=== PATIENT | male | born 1950 | race Caucasian/White ===

== ENCOUNTER 2018-04-20 05:32 | Inpatient (IN) | payer MEDICARE, BC ==
[2018-04-20] MEDS ORDERED: Acetaminophen 500 MG Tab PO ONE (05:45)
[2018-04-20] MEDS ORDERED: Scopolamine 1.5 MG Transdermal Patch TRDERM SCH (05:45)
[2018-04-20] MEDS ORDERED: Dextrose 5%-Lactated Ringers 1,000 ML IV SCH (06:00)
[2018-04-20] MEDS: cefOXitin 2 GM in Sodium Chloride 0.9% 50 ML IV ONE ×2 (07:00→13:19)
[2018-04-20] MEDS ORDERED: Succinylcholine 200 MG/10 ML MDV ONE (07:06)
[2018-04-20] MEDS ORDERED: Propofol 200 MG/20 ML SDV ONE (07:06)
[2018-04-20] MEDS ORDERED: Rocuronium 50 MG/5 ML Vial ONE (07:06)
[2018-04-20] MEDS ORDERED: Neostigmine Methylsulfate 1 MG/ML 5 ML Syringe ONE (07:06)
[2018-04-20] MEDS ORDERED: Glycopyrrolate 0.2 MG/ML 5 ML MDV ONE (07:06)
[2018-04-20] MEDS ORDERED: Dexamethasone 4 MG/ML SDV ONE (07:06)
[2018-04-20] MEDS ORDERED: Ondansetron 4 MG/2 ML SDV ONE (07:06)
[2018-04-20] MEDS ORDERED: fentaNYL 250 MCG/5 ML SDV ONE (07:06)
[2018-04-20] MEDS ORDERED: Naloxone 0.4 MG/ML SDV IVPUSH PRN (07:11)
[2018-04-20] MEDS ORDERED: Ketamine 500 MG/5 ML MDV IV SCH (07:15)
[2018-04-20] MEDS ORDERED: Ropivacaine 37 ML, Dexamethasone 8 MG, EPINEPHrine 0.4 MG, Sodium Chloride 0.9% 40.6 ML NERVRT SCH ×4 (07:15)
[2018-04-20] MEDS: HYDROmorphone/Normal Saline 15 MG/30 ML PCA IV PRN (08:35)
[2018-04-20] MEDS ORDERED: Meropenem 500 MG SDV ONE (08:38)
[2018-04-20] MEDS ORDERED: fentaNYL 100 MCG/2 ML SDV ONE (09:08)
[2018-04-20] MEDS ORDERED: Sugammadex Sodium 200 MG/2 ML VIAL ONE (09:28)
[2018-04-20] MEDS: Dextrose 5%-Lactated Ringers 1,000 ML IV SCH ×2 (13:53→21:39)
[2018-04-20] MEDS: ceFAZolin 2 GM in Premix Bag 1 BAG IV SCH ×2 (13:53→19:47)
[2018-04-20] MEDS: Pantoprazole 40 MG Vial IV SCH (13:53)
[2018-04-20] MEDS: Metoclopramide 10 MG/2 ML SDV IV SCH ×2 (13:53→19:44)
[2018-04-20] MEDS: Tamsulosin 0.4 MG Cap.ER PO SCH (20:04)
[2018-04-20] MEDS: LORazepam 2 MG/ML SDV IV PRN (23:58)
[2018-04-21] MEDS: Pantoprazole 40 MG Vial IV SCH ×3 (00:30→23:44)
[2018-04-21] MEDS: Metoclopramide 10 MG/2 ML SDV IV SCH ×4 (02:34→20:27)
[2018-04-21] MEDS: Dextrose 5%-Lactated Ringers 1,000 ML IV SCH ×3 (04:18→22:24)
[2018-04-21] MEDS: ceFAZolin 2 GM in Premix Bag 1 BAG IV SCH ×3 (04:23→20:27)
[2018-04-21] MEDS: Sertraline 50 MG Tab PO SCH (08:47)
--- NOTE | 2018-04-21 10:32 | PN ---
DATE OF SERVICE: 04/21/2018 SUBJECTIVE: Bobby is postoperative day #1 following a laparoscopic Audelia fundoplication. His pain is controlled. He does state when he drinks, he will get hiccups. Vital signs have been stable. He had couple of episodes of restless legs syndrome during the night, which he said he gets at home, where he gets up and walks around or stretches, and it seems to settle down. He had an episode of anxiety, which was treated with IV Ativan. REVIEW OF SYSTEMS: Remainder of review of systems negative for any pertinent positives and negatives. OBJECTIVE: GENERAL: Bobby Morris is a pleasant 67-year-old male. VITAL SIGNS: TPR is 98.4, 58, 16, and blood pressure 93/60. HEENT: Negative. NECK: Supple. HEART: Regular rate and rhythm. LUNGS: Clear. ABDOMEN: Dressings dry and intact. MEGAN drain put out 95 mL of a pink serosanguineous drainage. Tovar catheter output was 2600. Oral intake 150 of sips of clear liquids. Dressing otherwise is dry and intact. Abdominal binder is on. EXTREMITIES: Without peripheral edema. ASSESSMENT: Laparoscopic Audelia fundoplication. PLAN: 1. Discontinue Tovar catheter. 2. Check ferritin. 3. Decrease D5LR to 100 mL per hour. 4. Continue sips of clear liquid diet. Discontinue straws. 5. Good pulmonary toilet. 6. Dietary consult. 7. We will evaluate p.r.n. or in a.m. Nataly Nance PA-C /[id number]
[2018-04-21] MEDS: Tamsulosin 0.4 MG Cap.ER PO SCH (20:29)
[2018-04-21] MEDS: rOPINIRole 0.5 MG Tab PO SCH (20:29)
[2018-04-21] MEDS: Ondansetron 4 MG/2 ML SDV IV PRN (20:41)
[2018-04-21] MEDS: LORazepam 2 MG/ML SDV IV PRN (22:20)
[2018-04-22] MEDS: Metoclopramide 10 MG/2 ML SDV IV SCH ×4 (01:41→20:39)
[2018-04-22] MEDS: ceFAZolin 2 GM in Premix Bag 1 BAG IV SCH ×3 (03:59→20:40)
[2018-04-22] MEDS: Sertraline 50 MG Tab PO SCH (09:13)
--- NOTE | 2018-04-22 11:58 | PN ---
DATE OF SERVICE: 04/22/2018 SUBJECTIVE: Bobby is a 67-year-old male who is postoperative day 2. Vital signs have been stable. A temperature max of 99.6. He has been up ambulating. Pain has been controlled. He has been quite sleepy. He has been on sips of clear liquids. Oral intake is 420. Urine output is 1730. MEGAN drain put out 30 mL of a light pink serosanguineous drainage. He reported no restless legs and was started on Requip yesterday. REVIEW OF SYSTEMS: Remainder of review of systems is negative for any pertinent positives and negatives. OBJECTIVE: GENERAL: Bobby Morris is a 67-year-old male. He is quite sleepy. VITAL SIGNS: TPR is 99, 76, 16, and blood pressure 106/72. HEENT: Negative. NECK: Supple. HEART: Regular rate and rhythm. LUNGS: Clear. ABDOMEN: Dressings are dry and intact. Abdominal binder is on. EXTREMITIES: Without peripheral edema. ASSESSMENT: Diagnostic laparoscopy with repair of paraesophageal diaphragmatic hernia with mesh and Audelia fundoplication. Remnant T-formation for esophagus and excision of mediastinal lipoma and repair of esophageal perforation for paraesophageal hiatal hernia, gastroesophageal reflux disease refractory to medical management and esophageal perforation just proximal to the esophageal gastric junction. Date of surgery 04/20/2018. Surgeon, Richard Ludwig MD. PLAN: 1. Ensure clear oral protein supplements t.i.d. 2. Clear liquid diet. 3. Dressing off, may shower. 4. Good pulmonary toilet. 5. We will evaluate p.r.n. or in the a.m. Nataly Nance PA-C /[id number]
[2018-04-22] MEDS: Pantoprazole 40 MG Vial IV SCH ×2 (13:51→23:36)
[2018-04-22] MEDS: HYDROmorphone/Normal Saline 15 MG/30 ML PCA IV PRN (16:53)
--- NOTE | 2018-04-22 16:53 | PCM.PN ---
- General Info Date of Service: 04/22/18 Functional Status: Reports: Pain Controlled, Tolerating Diet - Review of Systems General: Reports: Fever Musculoskeletal: Reports: Joint Pain Systems Review Comment:: I was asked to see Mr. Morris today regarding left knee pain and swelling. He reports that he fell a couple of days ago while climbing stairs. He struck his left denny and left knee area. He did have some pain but was able to ambulate at that time. He has had progressive sharp and now moderate to moderately severe pain in the left knee. Pain is worse with ambulation and extension at the knee. Pain medications to help some. He has noticed swelling of both the medial and lateral areas of the knee today. He has a history of arthroscopic surgeries on that knee. No history of inflammatory crystal disease of the joints. - Patient Data Vitals - Most Recent: Last Vital Signs Temp 37.9 C 04/22/18 15:00 Pulse 78 04/22/18 15:00 Resp 15 04/22/18 15:00 BP 104/75 04/22/18 15:00 Pulse Ox 96 04/22/18 15:00 Weight - Most Recent: 72.847 kg I&O - Last 24 Hours: Intake & Output 04/22/18 04/22/18 04/22/18 06:59 14:59 22:59 Intake Total 1189 360 Output Total 830 650 Balance 359 -290 Med Orders - Current: Current Medications Acetaminophen (Tylenol Jr. Meltaways) 640 mg PO Q4H PRN PRN Reason: Temp Bupropion HCl (Wellbutrin) 150 mg PO BID [facility] Last Admin: 04/22/18 09:13 Dose: 150 mg Hydromorphone HCl (Dilaudid [place] 15 Mg In Ns 30 Ml) 0 mg IV ASDIRECTED PRN; Protocol PRN Reason: Pain Last Admin: 04/20/18 08:35 Dose: 0.3 mg Dextrose/Lactated Ringer's (Dextrose 5%-Lactated Ringers) 1,000 mls @ 100 mls/ hr IV ASDIRECTED [facility] Last Admin: 04/21/18 22:24 Dose: 150 mls/hr Cefazolin Sodium/Dextrose 2 gm (/ Premix) 50 mls @ 100 mls/hr IV Q8H [facility] Last Admin: 04/22/18 13:51 Dose: 100 mls/hr [place] Carbonate ([place] Carbonate) 300 mg PO TID [facility] Last Admin: 04/22/18 13:51 Dose: 300 mg Lorazepam (Ativan) 0.5 - 1 mg IV Q6H PRN PRN Reason: ANEXITY Last Admin: 04/21/18 22:20 Dose: 1 mg Metoclopramide HCl (Reglan) 10 mg IV Q6H [facility] Last Admin: 04/22/18 13:52 Dose: 10 mg Naloxone HCl (Narcan) 0.1 mg IVPUSH Q2M PRN PRN Reason: Respiratory Distress Ondansetron HCl (Zofran) 4 mg IV Q4H PRN PRN Reason: N/V Last Admin: 04/21/18 20:41 Dose: 4 mg Pantoprazole Sodium (Protonix Iv) 40 mg IV Q12H [facility] Last Admin: 04/22/18 13:51 Dose: 40 mg Ropinirole HCl (Requip) 0.5 mg PO BEDTIME [facility] Last Admin: 04/21/18 20:29 Dose: 0.5 mg Sertraline HCl (Zoloft) 50 mg PO DAILY [facility] Last Admin: 04/22/18 09:13 Dose: 50 mg Tamsulosin HCl (Flomax) 0.4 mg PO BEDTIME [facility] Last Admin: 04/21/18 20:29 Dose: 0.4 mg Discontinued Medications Acetaminophen (Tylenol Extra Strength) 1,000 mg PO ONETIME ONE Stop: 04/20/18 05:46 Last Admin: 04/20/18 05:53 Dose: 1,000 mg Ropivacaine 37 ml/Dexamethasone 8 mg/Epinephrine HCl 0.4 mg/ Sodium Chloride 40.6 ml 0 ml NERVRT ASDIRECTED [facility] Last Admin: 04/20/18 08:17 Dose: 100 syringe Dexamethasone (Dexamethasone) Confirm Administered Dose 4 mg .ROUTE .STK-MED ONE Stop: 04/20/18 07:07 Fentanyl (Sublimaze) Confirm Administered Dose 250 mcg .ROUTE .STK-MED ONE Stop: 04/20/18 07:07 Fentanyl (Sublimaze) Confirm Administered Dose 100 mcg .ROUTE .STK-MED ONE Stop: 04/20/18 09:09 Glycopyrrolate (Robinul) Confirm Administered Dose 1 mg .ROUTE .STK-MED ONE Stop: 09/10/18 07:07 Cefoxitin Sodium 2 gm/ Sodium (Chloride) 50 mls @ 100 mls/hr IV ONETIME ONE Stop: 04/20/18 07:44 Last Admin: 04/20/18 13:19 Dose: Not Given Dextrose/Lactated Ringer's (Dextrose 5%-Lactated Ringers) 1,000 mls @ 100 mls/ hr IV ASDIRECTED [facility] Last Admin: 04/20/18 06:39 Dose: 100 mls/hr Ketamine HCl (Ketalar) 34 mg IV ASDIRECTED [facility] Meropenem (Merrem) Confirm Administered Dose 500 mg .ROUTE .STK-MED ONE Stop: 04/20/18 08:39 Last Admin: 04/20/18 08:51 Dose: 500 mg Neostigmine Methylsulfate (Neostigmine) Confirm Administered Dose 5 mg .ROUTE .STK-MED ONE Stop: 04/20/18 07:07 Ondansetron HCl (Zofran) Confirm Administered Dose 4 mg .ROUTE .STK-MED ONE Stop: 04/20/18 07:07 Propofol (Diprivan 20 Ml) Confirm Administered Dose 200 mg .ROUTE .STK-MED ONE Stop: 04/20/18 07:07 Rocuronium [place] (Zemuron) Confirm Administered Dose 50 mg .ROUTE .STK-MED ONE Stop: 04/20/18 07:07 Scopolamine (Transderm-Scop) 1.5 mg TRDERM Q72H [facility] Stop: 04/22/18 05:46 Last Admin: 04/20/18 05:56 Dose: 1.5 mg Succinylcholine Chloride (Quelicin) Confirm Administered Dose 200 mg .ROUTE .STK -MED ONE Stop: 04/20/18 07:07 Sugammadex Sodium (Bridion) Confirm Administered Dose 200 mg .ROUTE .STK-MED ONE Stop: 04/20/18 09:29 - Exam Quality Assessment: No: Supplemental Oxygen General: Alert, Oriented, Cooperative, No Acute Distress Lungs: Normal Respiratory Effort GI/Abdominal Exam: No Distention Extremities: No Pedal Edema, Joint Swelling (left knee, superior lateral as well as medial), Increased Warmth (in the areas of swelling as well as along both joint lines) Skin: Warm, Dry Psy/Mental Status: Alert, Normal Affect - Problem List Review Problem List Initiated/Reviewed/Updated: Yes - My Orders Last 24 Hours: My Active Orders 04/22/18 16:47 Knee 3V Lt [CR] Routine 04/22/18 16:48 Cooling Warming Measures [RC] ASDIRECTED Ice Therapy [OM.PC] Routine - Plan Plan:: ASSESSMENT AND PLAN - Left knee pain and swelling - secondary to trauma to the knee with fall on Friday night. X-ray shows significant arthritis changes as well as some effusions but no evidence for fracture or dislocation though the patella does seem to be riding slightly higher than what we expected on a lateral view. a CT scan of the knee was performed and did not show any evidence for fracture or dislocation. Tricompartmental effusions were noted. There was mention of the apparent area of impaction on the left side of the joint but again no evidence for fracture. most likely the pain as a result of trauma. I highly doubt this is crystal disease such as gout or pseudogout and certainly doesn't look like infection. -Ice every 4 hours -Pain control -Increase activity as tolerated -Physical therapy -Consider advanced imaging such as MRI if pain worsens or does not get better Clemente Benson M.D.
[2018-04-22] MEDS: Acetaminophen 160 MG Tab,Disintegrating PO PRN (17:17)
[2018-04-22] MEDS: Dextrose 5%-Lactated Ringers 1,000 ML IV SCH (19:42)
[2018-04-22] MEDS: rOPINIRole 0.5 MG Tab PO SCH (20:55)
[2018-04-22] MEDS: Tamsulosin 0.4 MG Cap.ER PO SCH (20:55)
[2018-04-23] MEDS: Metoclopramide 10 MG/2 ML SDV IV SCH ×4 (02:59→19:27)
[2018-04-23] MEDS: Acetaminophen 160 MG Tab,Disintegrating PO PRN ×4 (03:01→23:33)
[2018-04-23] MEDS: ceFAZolin 2 GM in Premix Bag 1 BAG IV SCH ×3 (03:46→19:32)
[2018-04-23] MEDS: Dextrose 5%-Lactated Ringers 1,000 ML IV SCH ×2 (07:08→19:28)
--- NOTE | 2018-04-23 08:41 | CR ---
Knee 3V Lt HISTORY: left knee pain and swelling FINDINGS: There is joint space narrowing medial and lateral compartments of the left knee. Medial and lateral osteophytes are present. There are degenerative changes undersurface of the patella with sma ll superior and inferior patellar osteophytes. No acute fracture or dislocation is identified. There may be a small joint effusion with fluid in the suprapatellar bursa. IMPRESSION: Severe degenerative changes left knee. No acute fracture or dislocation is identified.
[2018-04-23] MEDS: HYDROmorphone 2 MG Tab PO PRN ×2 (08:46→13:13)
[2018-04-23] MEDS: Sertraline 50 MG Tab PO SCH (08:48)
--- NOTE | 2018-04-23 10:06 | PCM.PN ---
- General Info Date of Service: 04/23/18 Functional Status: Reports: Tolerating Diet. Denies: Pain Controlled - Review of Systems General: Reports: Fever Musculoskeletal: Reports: Joint Pain (left knee) Systems Review Comment:: No acute issues overnight. Still having a fair amount of pain in his left knee which continues to get worse if he tries to put any weight on it. Extremes of flexion or extension also increase the pain significantly. He has been using ice regularly. He continues to have some low-grade fevers. No significant abdominal pain at this time. Still feels weak and somewhat lethargic. - Patient Data Vitals - Most Recent: Last Vital Signs Temp 37.4 C 04/23/18 07:14 Pulse 78 04/23/18 07:14 Resp 16 04/23/18 07:14 BP 104/71 04/23/18 07:14 Pulse Ox 94 L 04/23/18 07:24 Weight - Most Recent: 72.847 kg I&O - Last 24 Hours: Intake & Output 04/22/18 04/23/18 04/23/18 22:59 06:59 14:59 Intake Total 1420 1428 Output Total 885 1810 Balance 535 -382 Med Orders - Current: Current Medications Acetaminophen (Tylenol Jr. Meltaways) 640 mg PO Q4H PRN PRN Reason: Temp Last Admin: 04/23/18 07:51 Dose: 640 mg Bupropion HCl (Wellbutrin) 150 mg PO BID [facility] Last Admin: 04/23/18 08:48 Dose: 150 mg Hydromorphone HCl (Dilaudid) 2 - 4 mg PO Q4H PRN PRN Reason: Pain Last Admin: 04/23/18 08:46 Dose: 4 mg Cefazolin Sodium/Dextrose 2 gm (/ Premix) 50 mls @ 100 mls/hr IV Q8H [facility] Last Admin: 04/23/18 03:46 Dose: 100 mls/hr Dextrose/Lactated Ringer's (Dextrose 5%-Lactated Ringers) 1,000 mls @ 80 mls/ hr IV ASDIRECTED [facility] [place] Carbonate ([place] Carbonate) 300 mg PO TID [facility] Last Admin: 04/23/18 08:47 Dose: 300 mg Lorazepam (Ativan) 0.5 - 1 mg IV Q6H PRN PRN Reason: ANEXITY Last Admin: 04/21/18 22:20 Dose: 1 mg Metoclopramide HCl (Reglan) 10 mg IV Q6H [facility] Last Admin: 04/23/18 08:47 Dose: 10 mg Ondansetron HCl (Zofran) 4 mg IV Q4H PRN PRN Reason: N/V Last Admin: 04/21/18 20:41 Dose: 4 mg Pantoprazole Sodium (Protonix Iv) 40 mg IV Q12H [facility] Last Admin: 04/22/18 23:36 Dose: 40 mg Ropinirole HCl (Requip) 0.5 mg PO BEDTIME [facility] Last Admin: 04/22/18 20:55 Dose: 0.5 mg Sertraline HCl (Zoloft) 50 mg PO DAILY [facility] Last Admin: 04/23/18 08:48 Dose: 50 mg Tamsulosin HCl (Flomax) 0.4 mg PO BEDTIME [facility] Last Admin: 04/22/18 20:55 Dose: 0.4 mg Discontinued Medications Acetaminophen (Tylenol Extra Strength) 1,000 mg PO ONETIME ONE Stop: 04/20/18 05:46 Last Admin: 04/20/18 05:53 Dose: 1,000 mg Ropivacaine 37 ml/Dexamethasone 8 mg/Epinephrine HCl 0.4 mg/ Sodium Chloride 40.6 ml 0 ml NERVRT ASDIRECTED [facility] Last Admin: 04/20/18 08:17 Dose: 100 syringe Dexamethasone (Dexamethasone) Confirm Administered Dose 4 mg .ROUTE .STK-MED ONE Stop: 04/20/18 07:07 Fentanyl (Sublimaze) Confirm Administered Dose 250 mcg .ROUTE .STK-MED ONE Stop: 04/20/18 07:07 Fentanyl (Sublimaze) Confirm Administered Dose 100 mcg .ROUTE .STK-MED ONE Stop: 04/20/18 09:09 Glycopyrrolate (Robinul) Confirm Administered Dose 1 mg .ROUTE .STK-MED ONE Stop: 04/20/18 07:07 Hydromorphone HCl (Dilaudid [place] 15 Mg In Ns 30 Ml) 0 mg IV ASDIRECTED PRN; Protocol PRN Reason: Pain Last Admin: 04/22/18 16:53 Dose: 15 mg Cefoxitin Sodium 2 gm/ Sodium (Chloride) 50 mls @ 100 mls/hr IV ONETIME ONE Stop: 04/20/18 07:44 Last Admin: 04/20/18 13:19 Dose: Not Given Dextrose/Lactated Ringer's (Dextrose 5%-Lactated Ringers) 1,000 mls @ 100 mls/ hr IV ASDIRECTED [facility] Last Admin: 04/20/18 06:39 Dose: 100 mls/hr Dextrose/Lactated Ringer's (Dextrose 5%-Lactated Ringers) 1,000 mls @ 100 mls/ hr IV ASDIRECTED [facility] Last Admin: 04/23/18 07:08 Dose: 150 mls/hr Ketamine HCl (Ketalar) 34 mg IV ASDIRECTED [facility] Meropenem (Merrem) Confirm Administered Dose 500 mg .ROUTE .STK-MED ONE Stop: 04/20/18 08:39 Last Admin: 04/20/18 08:51 Dose: 500 mg Naloxone HCl (Narcan) 0.1 mg IVPUSH Q2M PRN PRN Reason: Respiratory Distress Neostigmine Methylsulfate (Neostigmine) Confirm Administered Dose 5 mg .ROUTE .STK-MED ONE Stop: 04/20/18 07:07 Ondansetron HCl (Zofran) Confirm Administered Dose 4 mg .ROUTE .STK-MED ONE Stop: 04/20/18 07:07 Propofol (Diprivan 20 Ml) Confirm Administered Dose 200 mg .ROUTE .STK-MED ONE Stop: 04/20/18 07:07 Rocuronium [place] (Zemuron) Confirm Administered Dose 50 mg .ROUTE .STK-MED ONE Stop: 04/20/18 07:07 Scopolamine (Transderm-Scop) 1.5 mg TRDERM Q72H [facility] Stop: 04/22/18 05:46 Last Admin: 04/20/18 05:56 Dose: 1.5 mg Succinylcholine Chlor[place] (Quelicin) Confirm Administered Dose 200 mg .ROUTE .STK -MED ONE Stop: 04/20/18 07:07 Sugammadex Sodium (Bridion) Confirm Administered Dose 200 mg .ROUTE .STK-MED ONE Stop: 04/20/18 09:29 - Exam Quality Assessment: No: Supplemental Oxygen General: Alert, Oriented, Cooperative, No Acute Distress Lungs: Normal Respiratory Effort GI/Abdominal Exam: Soft, No Distention Extremities: No Pedal Edema, Joint Swelling (left knee), Increased Warmth (left knee) Skin: Warm, Dry Psy/Mental Status: Alert, Normal Affect - Problem List Review Problem List Initiated/Reviewed/Updated: Yes - My Orders Last 24 Hours: My Active Orders 04/22/18 16:48 Cooling Warming Measures [RC] ASDIRECTED Ice Therapy [OM.PC] Routine 04/22/18 17:16 Knee wo Cont Lt [CT] Routine 04/23/18 10:02 Notify Provider Consults [RC] ASDIRECTED Consult to Physician [CONS] Routine - Plan Plan:: ASSESSMENT AND PLAN - Left knee pain and swelling - secondary to trauma to the knee with fall on Friday night. Neither x-ray nor CT show definite evidence for fracture. Suspect trauma complicating chronic osteoarthritis. Orthopedics has been consulted for additional assistance and Gerry Hutchison will be seeing the patient today and is planning a arthrocentesis this afternoon. -Orthopedics consultation -Culture, cell count and crystal analysis from arthrocentesis fluid -Ice every 4 hours -Pain control -Increase activity as tolerated -Physical therapy -Consider advanced imaging such as MRI if pain worsens or does not get better Clemente Benson M.D.
--- NOTE | 2018-04-23 10:40 | PN ---
DATE OF SERVICE: 04/23/2018 SUBJECTIVE: The patient reports his pain is controlled. Oral intake was 720 and urine output 3300. He is not passing any flatus. He does have an increased amount of pain and swelling with some fluid in his left knee. REVIEW OF SYSTEMS: Remainder of review of systems is negative for any pertinent positives and negatives. OBJECTIVE: GENERAL: The patient is a pleasant 67-year-old male. VITAL SIGNS: TPR is 99.3, 78, 16, blood pressure 104/71. HEENT: Negative. NECK: Supple. HEART: Regular rate and rhythm. LUNGS: Clear. ABDOMEN: Incisions look good. Sutures in place. MEGAN drain put out 45 mL of a light pink serosanguineous drainage. Abdominal binder has been on. EXTREMITIES: Revealed left knee swelling, right is negative. There is no calf or pedal edema. ASSESSMENT: Diagnostic laparoscopy with repair of paraesophageal diaphragmatic hernia with mesh, and Audelia fundoplication, removal of T fasteners from esophagus and excision of mediastinal lipoma and repair of esophageal perforation. Date of surgery 04/20/2018. Surgeon, Richard Ludwig MD. PLAN: 1. Discontinue Dilaudid [employer] and continuous pulse ox. 2. Full liquid diet food to nothing thicker than water. 3. Protein supplements thinned with milk, nothing thicker than water three times a day. Decrease D5 LR to 80 mL/h, Dilaudid 2 mg 1 to 2 every 4 hours p.r.n. pain. 4. Consult communication order written to Clemente Benson MD in regard to possibility of tapping that left knee. If any questions, to contact Richard Ludwig MD. Good pulmonary toilet, encouraged and stressed importance of using incentive spirometer because he is not able to walk because of the left knee. 5. We will evaluate p.r.n. or in a.m. Nataly Nance PA-C /[id number]
[2018-04-23] MEDS: Pantoprazole 40 MG Vial IV SCH ×2 (12:20→23:04)
[2018-04-23] MEDS ORDERED: Vancomycin 1.5 GM in Sodium Chloride 0.9% 500 ML IV ONE (19:00)
[2018-04-23] MEDS ORDERED: Vancomycin 1,000 MG SDV ONE (19:27)
[2018-04-23] MEDS: rOPINIRole 0.5 MG Tab PO SCH (20:20)
[2018-04-23] MEDS: Tamsulosin 0.4 MG Cap.ER PO SCH (20:20)
[2018-04-24] MEDS: Metoclopramide 10 MG/2 ML SDV IV SCH ×4 (01:06→19:28)
[2018-04-24] MEDS: LORazepam 2 MG/ML SDV IV PRN ×2 (01:27→21:31)
[2018-04-24] MEDS: ceFAZolin 2 GM in Premix Bag 1 BAG IV SCH ×4 (03:38→21:07)
[2018-04-24] MEDS: Acetaminophen 160 MG Tab,Disintegrating PO PRN ×2 (03:47→10:10)
[2018-04-24] MEDS ORDERED: Iopamidol 612 MG/ML 100 ML Bottle IV ONE (07:00)
[2018-04-24] MEDS ORDERED: Iohexol 647 MG/ML 50 ML SDV PO ONE (07:00)
[2018-04-24] MEDS ORDERED: Sodium Chloride 0.9% 100 ML IV SCH (07:00)
[2018-04-24] MEDS: Polyethylene Glycol 3350 Powder 17 GM Packet PO SCH ×2 (08:18→21:07)
[2018-04-24] MEDS: Sertraline 50 MG Tab PO SCH (08:18)
--- NOTE | 2018-04-24 08:41 | CT ---
Chest Abdomen Pelvis w Cont HISTORY: Pt complains of hard time swallowing Axial spiral enhanced CT scan of the chest, abdomen, and pelvis was obtained using IV contrast and a small amount of oral contrast. Auto dosage and iterative reconstruction techniques were employed. FINDINGS: Heart size is within normal limits. No hilar or mediastinal mass or adenopathy seen. I see no mediastinal inflammatory changes or fluid. A small amount of coronary artery calcification is note d. There is mild atherosclerotic calcification in the aortic arch. Small bilateral pleural effusions are present. There is probable dependent atelectasis posteriorly at the lung bases, most prominent le ft lower lobe. Remainder of the chest is clear. The patient is status post recent Audelia fundoplication. Surgical clips are noted near the GE junctio n. Surgical drain is noted left upper quadrant. There is a very small amount of free air just posteri or to the proximal stomach. This is likely postoperative. No contrast extravasation or abscess format ion is seen. Perforation is felt to be less likely. Recommend clinical correlation and follow-up. No focal amount of the liver, spleen, pancreas, or adrenal glands is identified. Gallbladder is surgi kaylee absent. There is no biliary duct dilatation. There is cortical scarring mid to lower right kidn ey laterally. No renal mass or hydronephrosis is seen. There is no ureteral dilatation. I see no obvi ous renal stone disease. Abdominal aorta is not dilated. No pelvic mass or abnormal fluid collections are seen. There is no pelvic, retroperitoneal, or mesent galilea adenopathy. No free fluid or other abnormal intraabdominal or pelvic fluid collections are seen. Small bowel loops are nondistended. No significant colon abnormality can be seen. Bony structures ar e unremarkable other than mild degenerative changes lower lumbar spine. IMPRESSION: 1. Status post Audelia fundoplication. Surgical drain is noted. Small bubbles of free air posterior to the proximal stomach are favored to be postoperative. No contrast extravasation or abscess formation is identified. Perforation is felt to be less likely. Recommend clinical correlation and follow-up. 2. Probable dependent atelectasis posteriorly at the lung bases bilaterally. I cannot exclude early i nflammatory infiltrate posterior left lower lobe. There are small bilateral pleural effusions.
--- NOTE | 2018-04-24 08:48 | CR ---
Chest 2V HISTORY: post op temp COMPARISON: 06/23/2009 FINDINGS: There is probable mild atelectasis at the lung bases bilaterally. Upper chest is clear. Car diomediastinal silhouette is within normal limits. There is no pneumothorax. Blunting of the costophr enic angles suggests a small amount of pleural fluid bilaterally. Surgical drain is noted left upper quadrant of the abdomen. IMPRESSION: Probable mild atelectasis at the lung bases bilaterally. Small bilateral pleural effusion s. I cannot entirely exclude early inflammatory infiltrate left lung base. No other acute chest abnor mality is identified. Postoperative changes are noted about the GE junction with surgical drain left upper quadrant of the abdomen. Gallbladder is surgically absent.
--- NOTE | 2018-04-24 10:26 | PN ---
DATE OF SERVICE: 04/24/2018 SUBJECTIVE: Bobby had a temp max yesterday of 101.2. Blood cultures and chest x-ray were obtained. He had Orthopedic consult and had his left knee drained. Lab tests for that culture and sensitivity are pending. Had one hard bowel movement. Somewhat confused, per nursing report, during the night. Pain has been managed. REVIEW OF SYSTEMS: Remainder of review of systems negative for any pertinent positives and negatives. OBJECTIVE: GENERAL: Bobby Morris is a 67-year-old male. VITAL SIGNS: TPR is 99, 77, 14, and blood pressure 116/77. HEENT: Negative. NECK: Supple. HEART: Regular rate and rhythm. LUNGS: Clear, but decreased breath sounds in the bases. ABDOMEN: Dressings dry and intact. Abdominal binder is on. MEGAN drain put out 35 mL of a light pink serosanguineous drainage. Oral intake was 1100. Urine output was 2600 and three bowel movements are recorded. EXTREMITIES: Left knee remains swollen and warm to touch. No other peripheral edema. ASSESSMENT: 1. Diagnostic laparoscopy with repair of paraesophageal diaphragmatic hernia with mesh and Audelia fundoplication, removal of T-fasteners from the esophagus and excision of mediastinal lipoma, and repair of esophageal perforation. Date of surgery 04/20/2018. Surgeon, Richard Ludwig MD. 2. Left knee swollen, status post removal of fluid per Ortho. 3. Temp max of 101.6. PLAN: 1. Check CT of chest, abdomen and pelvis with IV contrast and 50 mL of water-soluble contrast right before laying on table. Call Richard Ludwig MD, with results. 2. MiraLAX 17 grams b.i.d. 3. Acapella, use 10 times every hour while awake. 4. Check CBC, CMP, mag, and phos. 5. May have ice to left knee and neck p.r.n. 6. Continuous pulse ox. 7. Respiratory Therapy to see the patient, to work on pulmonary function three times a day. 8. We will evaluate p.r.n. or in a.m. Nataly Nance PA-C /[id number]
--- NOTE | 2018-04-24 11:58 | PCM.PN ---
- General Info Date of Service: 04/24/18 Functional Status: Reports: Pain Controlled, Tolerating Diet, Ambulating - Review of Systems General: Reports: Fever, Weakness Musculoskeletal: Reports: Joint Pain (left knee) Neurological: Reports: Confusion Systems Review Comment:: no acute events overnight. Patient did have fever yesterday evening. Chest x- ray did not suggest pneumonia. Urinalysis was clear. Blood cultures were obtained. He did have about 60 mL of yellowish cloudy fluid aspirated from his knee yesterday by Gerry Hutchison with orthopedics. He feels a little better today and he has an increase in his range of motion. Gram stain analysis of the fluid showed significant leukocytosis and some red blood cells but no organisms. Cultures are negative so far. His is concerned about his lethargy and intermittent confusion though they seem to be slowly getting better. Tolerating his full liquid diet. - Patient Data Vitals - Most Recent: Last Vital Signs Temp 37.6 C 04/24/18 10:45 Pulse 88 04/24/18 10:45 Resp 15 04/24/18 10:45 BP 104/67 04/24/18 10:45 Pulse Ox 97 04/24/18 11:32 Weight - Most Recent: 72.847 kg I&O - Last 24 Hours: Intake & Output 04/23/18 04/24/18 04/24/18 22:59 06:59 14:59 Intake Total 550 2790 Output Total 525 1210 1200 Balance 25 1580 -1200 Lab Results Last 24 Hours: Laboratory Results - last 24 hr 04/23/18 04/23/18 04/23/18 Range/Units 16:48 17:25 17:25 WBC 14.9 H (4.5-11.0) K/uL RBC 3.48 L (4.30-5.90) M/uL Hgb 11.7 L (12.0-15.0) g/dL Hct 35.3 L (40.0-54.0) % MCV 101 H (80-98) fL MCH 34 H (27-31) pg MCHC 33 (32-36) % Plt Count 384 (150-400) K/uL Add Manual Diff Yes Neutrophils % (Manual) 81 H (36-66) % Band Neutrophils % 1 L (5-11) % Lymphocytes % (Manual) 5 L (24-44) % Monocytes % (Manual) 6 (2-6) % Eosinophils % (Manual) 5 H (2-4) % Metamyelocytes % 2 % Sodium 138 L (140-148) mmol/L Potassium 3.4 L (3.6-5.2) mmol/L Chloride 99 L (100-108) mmol/L Carbon Dioxide 32 (21-32) mmol/L Anion Gap 10.4 (5.0-14.0) mmol/L BUN 9 (7-18) mg/dL Creatinine 1.1 (0.8-1.3) mg/dL Est Cr Clr Drug Dosing 63.05 mL/min Estimated GFR (MDRD) > 60 (>60) Glucose 121 H (74-106) mg/dL Calcium 9.6 (8.5-10.1) mg/dL Urine Color Urine Appearance Urine pH (4.5-8.0) Ur Specific [place] (1.008-1.030) Urine Protein (NEGATIVE) mg/dL Urine Glucose (UA) (NEGATIVE) mg/dL Urine Ketones (NEGATIVE) mg/dL Urine Occult Blood (NEGATIVE) Urine Nitrite (NEGAITVE) Urine Bilirubin (NEGATIVE) Urine Urobilinogen (NORMAL) mg/dL Ur Leukocyte Esterase (NEGATIVE) Urine RBC (0-5) Urine WBC (0-5) Ur Epithelial Cells Amorphous Sediment Urine Bacteria Urine Mucus Fluid Type Synovial fluid Fluid WBC 16818 /ul Fluid RBC 1800 /ul Fluid Diff Comment Fluid Mononuclear Cell 30 % Fl Polymorphonucl Cell 70 % //18 Range/Units 17:38 WBC (4.5-11.0) K/uL RBC (4.30-5.90) M/uL Hgb (12.0-15.0) g/dL Hct (40.0-54.0) % MCV (80-98) fL MCH (27-31) pg MCHC (32-36) % Plt Count (150-400) K/uL Add Manual Diff Neutrophils % (Manual) (36-66) % Band Neutrophils % (5-11) % Lymphocytes % (Manual) (24-44) % Monocytes % (Manual) (2-6) % Eosinophils % (Manual) (2-4) % Metamyelocytes % % Sodium (140-148) mmol/L Potassium (3.6-5.2) mmol/L Chloride (100-108) mmol/L Carbon Dioxide (21-32) mmol/L Anion Gap (5.0-14.0) mmol/L BUN (7-18) mg/dL Creatinine (0.8-1.3) mg/dL Est Cr Clr Drug Dosing mL/min Estimated GFR (MDRD) (>60) Glucose (74-106) mg/dL Calcium (8.5-10.1) mg/dL Urine Color Yellow Urine Appearance Clear Urine pH 9.0 H (4.5-8.0) Ur Specific [place] 1.015 (1.008-1.030) Urine Protein Negative (NEGATIVE) mg/dL Urine Glucose (UA) Normal (NEGATIVE) mg/dL Urine Ketones Negative (NEGATIVE) mg/dL Urine Occult Blood Negative (NEGATIVE) Urine Nitrite Negative (NEGAITVE) Urine Bilirubin Negative (NEGATIVE) Urine Urobilinogen Normal (NORMAL) mg/dL Ur Leukocyte Esterase Negative (NEGATIVE) Urine RBC 0-5 (0-5) Urine WBC 0-5 (0-5) Ur Epithelial Cells Rare Amorphous Sediment Few Urine Bacteria Rare Urine Mucus Few Fluid Type Fluid WBC /ul Fluid RBC /ul Fluid Diff Comment Fluid Mononuclear Cell % Fl Polymorphonucl Cell % Ad Results Last 24 Hours: Microbiology 04/23/18 16:48 Gram Stain - Final Knee Fluid - Knee, Left Med Orders - Current: Current Medications Acetaminophen (Tylenol Jr. Meltaways) 640 mg PO QID [facility] Bupropion HCl (Wellbutrin) 150 mg PO BID [facility] Last Admin: 04/24/18 08:17 Dose: 150 mg Hydromorphone HCl (Dilaudid) 2 - 4 mg PO Q4H PRN PRN Reason: Pain Last Admin: 04/23/18 13:13 Dose: 4 mg Cefazolin Sodium/Dextrose 2 gm (/ Premix) 50 mls @ 100 mls/hr IV Q8H [facility] Last Admin: 04/24/18 03:38 Dose: 100 mls/hr Dextrose/Lactated Ringer's (Dextrose 5%-Lactated Ringers) 1,000 mls @ 80 mls/ hr IV ASDIRECTED [facility] Last Admin: 04/23/18 19:28 Dose: 80 mls/hr Vancomycin HCl 1 gm/ Sodium (Chloride) 250 mls @ 150 mls/hr IV Q12H [facility] Last Admin: 04/24/18 10:02 Dose: 150 mls/hr [place] Carbonate ([place] Carbonate) 300 mg PO TID [facility] Last Admin: 04/24/18 08:18 Dose: 300 mg Lorazepam (Ativan) 0.5 - 1 mg IV Q6H PRN PRN Reason: ANEXITY Last Admin: 04/24/18 01:27 Dose: 0.5 mg Metoclopramide HCl (Reglan) 10 mg IV Q6H [facility] Last Admin: 04/24/18 08:18 Dose: 10 mg Ondansetron HCl (Zofran) 4 mg IV Q4H PRN PRN Reason: N/V Last Admin: 04/21/18 20:41 Dose: 4 mg Pantoprazole Sodium (Protonix Iv) 40 mg IV Q12H [facility] Last Admin: 04/23/18 23:04 Dose: 40 mg Polyethylene Glycol (Miralax) 17 gm PO BID [facility] Last Admin: 04/24/18 08:18 Dose: 17 gm Ropinirole HCl (Requip) 0.5 mg PO BEDTIME [facility] Last Admin: 04/23/18 20:20 Dose: 0.5 mg Sertraline HCl (Zoloft) 50 mg PO DAILY [facility] Last Admin: 04/24/18 08:18 Dose: 50 mg Tamsulosin HCl (Flomax) 0.4 mg PO BEDTIME [facility] Last Admin: 04/23/18 20:20 Dose: 0.4 mg Discontinued Medications Acetaminophen (Tylenol Extra Strength) 1,000 mg PO ONETIME ONE Stop: 04/20/18 05:46 Last Admin: 04/20/18 05:53 Dose: 1,000 mg Acetaminophen (Tylenol Jr. Meltaways) 640 mg PO Q4H PRN PRN Reason: Temp Last Admin: 04/24/18 10:10 Dose: 640 mg Ropivacaine 37 ml/Dexamethasone 8 mg/Epinephrine HCl 0.4 mg/ Sodium Chloride 40.6 ml 0 ml NERVRT ASDIRECTED [facility] Last Admin: 04/20/18 08:17 Dose: 100 syringe Dexamethasone (Dexamethasone) Confirm Administered Dose 4 mg .ROUTE .STK-MED ONE Stop: 04/20/18 07:07 Fentanyl (Sublimaze) Confirm Administered Dose 250 mcg .ROUTE .STK-MED ONE Stop: 04/20/18 07:07 Fentanyl (Sublimaze) Confirm Administered Dose 100 mcg .ROUTE .STK-MED ONE Stop: 04/20/18 09:09 Glycopyrrolate (Robinul) Confirm Administered Dose 1 mg .ROUTE .STK-MED ONE Stop: 04/20/18 07:07 Hydromorphone HCl (Dilaudid Transfusion Nurse 15 Mg In Ns 30 Ml) 0 mg IV ASDIRECTED PRN; Protocol PRN Reason: Pain Last Admin: 04/22/18 16:53 Dose: 15 mg Cefoxitin Sodium 2 gm/ Sodium (Chloride) 50 mls @ 100 mls/hr IV ONETIME ONE Stop: 04/20/18 07:44 Last Admin: 04/20/18 13:19 Dose: Not Given Dextrose/Lactated Ringer's (Dextrose 5%-Lactated Ringers) 1,000 mls @ 100 mls/ hr IV ASDIRECTED [facility] Last Admin: 04/20/18 06:39 Dose: 100 mls/hr Dextrose/Lactated Ringer's (Dextrose 5%-Lactated Ringers) 1,000 mls @ 100 mls/ hr IV ASDIRECTED [facility] Last Admin: 04/23/18 07:08 Dose: 150 mls/hr Vancomycin HCl 1.5 gm/ Sodium (Chloride) 500 mls @ 300 mls/hr IV ONETIME ONE Stop: 04/23/18 20:39 Last Admin: 04/23/18 20:17 Dose: 300 mls/hr Sodium Chloride (Normal Saline) 100 mls @ 3 mls/sec IV ASDIRECTED [facility] Stop: 04/24/18 07:01 Last Admin: 04/24/18 10:24 Dose: 3 mls/sec Iohexol (Omnipaque-300) 50 ml PO ONETIME ONE Stop: 04/24/18 07:01 Last Admin: 04/24/18 10:26 Dose: 10 ml Iopamidol (Isovue-300 (61%)) 100 ml IV ONETIME ONE Stop: 04/24/18 07:01 Last Admin: 04/24/18 10:24 Dose: 100 ml Ketamine HCl (Ketalar) 34 mg IV ASDIRECTED [facility] Meropenem (Merrem) Confirm Administered Dose 500 mg .ROUTE .STK-MED ONE Stop: 04/20/18 08:39 Last Admin: 04/20/18 08:51 Dose: 500 mg Naloxone HCl (Narcan) 0.1 mg IVPUSH Q2M PRN PRN Reason: Respiratory Distress Neostigmine Methylsulfate (Neostigmine) Confirm Administered Dose 5 mg .ROUTE .STK-MED ONE Stop: 04/20/18 07:07 Ondansetron HCl (Zofran) Confirm Administered Dose 4 mg .ROUTE .STK-MED ONE Stop: 04/20/18 07:07 Propofol (Diprivan 20 Ml) Confirm Administered Dose 200 mg .ROUTE .STK-MED ONE Stop: 04/20/18 07:07 Rocuronium [place] (Zemuron) Confirm Administered Dose 50 mg .ROUTE .STK-MED ONE Stop: 04/20/18 07:07 Scopolamine (Transderm-Scop) 1.5 mg TRDERM Q72H [facility] Stop: 04/22/18 05:46 Last Admin: 04/20/18 05:56 Dose: 1.5 mg Succinylcholine Chloride (Quelicin) Confirm Administered Dose 200 mg .ROUTE .STK -MED ONE Stop: 04/20/18 07:07 Sugammadex Sodium (Bridion) Confirm Administered Dose 200 mg .ROUTE .STK-MED ONE Stop: 04/20/18 09:29 Vancomycin HCl (Vancomycin) Confirm Administered Dose 2,000 mg .ROUTE .STK-MED ONE Stop: 04/23/18 19:28 Last Admin: 04/23/18 20:21 Dose: Not Given - Exam Quality Assessment: No: Supplemental Oxygen General: Alert, Oriented, Cooperative, No Acute Distress Lungs: Clear to Auscultation, Normal Respiratory Effort Cardiovascular: Regular Rate, Regular Rhythm GI/Abdominal Exam: Soft, No Distention Extremities: No Pedal Edema, Joint Swelling (left knee), Increased Warmth (left knee) Skin: Warm, Dry Psy/Mental Status: Alert, Normal Affect - Problem List Review Problem List Initiated/Reviewed/Updated: Yes - My Orders Last 24 Hours: My Active Orders 04/23/18 13:30 CRYSTAL,SYNOVIAL/JOINT FL Routine 04/23/18 16:48 CULTURE BODY FLUID + SMEAR [RM] Routine 04/23/18 16:57 CULTURE ANAEROBIC [RM] Routine 04/23/18 17:12 Blood Culture x2 Reflex Set [OM.PC] Urgent 04/23/18 17:25 CULTURE BLOOD [BC] Urgent 04/23/18 17:38 CULTURE BLOOD [BC] Urgent 04/24/18 08:00 Vancomycin 1 gm Sodium Chloride 0.9% [Normal Saline] 250 ml IV Q12H 04/24/18 16:00 Acetaminophen [Tylenol Jr. Meltaways] 640 mg PO QID 04/25/18 04:00 LITHIUM (ESKALITH(R)), SERUM Routine - Plan Plan:: ASSESSMENT AND PLAN - Left knee pain and swelling - suspect trauma leading to a flare of osteoarthritis and inflammatory changes with differential including CPPD versus infection. Cultures negative so far. Still having some fevers but these could be inflammatory. Orthopedics input is greatly appreciated. -trial of anti-inflammatories -Follow-up cultures -Continue vancomycin and cefazolin until further culture results are available -Ice every 4 hours -Pain control -Increase activity as tolerated -Physical therapy -Consider advanced imaging such as MRI if pain worsens or does not get better Hypoactive delirium - patient has been lethargic and intermittently confused. I suspect this is related to pain medications with possible contribution from infection and/or inflammation. Seems to be slowly improving. Patient currently well controlled with only acetaminophen. -Minimize narcotics -Increase activity as tolerated -[place] level -Melatonin at bedtime Clemente Benson M.D.
[2018-04-24] MEDS: Pantoprazole 40 MG Vial IV SCH (13:30)
[2018-04-24] MEDS: Dextrose 5%-Lactated Ringers 1,000 ML IV SCH (14:20)
[2018-04-24] MEDS: Acetaminophen 160 MG Tab,Disintegrating PO SCH ×2 (16:31→21:08)
[2018-04-24] MEDS: Ondansetron 4 MG/2 ML SDV IV PRN ×2 (17:04→21:21)
[2018-04-24] MEDS: Tamsulosin 0.4 MG Cap.ER PO SCH (21:07)
[2018-04-24] MEDS: rOPINIRole 0.5 MG Tab PO SCH (21:07)
[2018-04-24] MEDS: Melatonin 3 MG Tab PO SCH (21:07)
[2018-04-25] MEDS: Pantoprazole 40 MG Vial IV SCH (00:11)
[2018-04-25] MEDS: Metoclopramide 10 MG/2 ML SDV IV SCH ×4 (01:57→19:32)
[2018-04-25] MEDS: Dextrose 5%-Lactated Ringers 1,000 ML IV SCH (02:25)
[2018-04-25] MEDS: ceFAZolin 2 GM in Premix Bag 1 BAG IV SCH ×3 (04:45→21:49)
[2018-04-25] MEDS: Acetaminophen 160 MG Tab,Disintegrating PO SCH ×4 (06:12→21:48)
[2018-04-25] MEDS: Polyethylene Glycol 3350 Powder 17 GM Packet PO SCH ×2 (08:03→20:22)
[2018-04-25] MEDS: Sertraline 50 MG Tab PO SCH (08:04)
[2018-04-25] MEDS ORDERED: Sodium Chloride 0.9% 10 ML Syringe IV PRN (08:31)
[2018-04-25] MEDS ORDERED: Pantoprazole 40 MG Tab.CR PO SCH (09:00)
[2018-04-25] MEDS: Inulin 1.5 GM Chewable Tab PO SCH ×2 (10:07→20:23)
[2018-04-25] MEDS: Pantoprazole 40 MG Delayed-Release Granules 1 Packet PO SCH ×2 (10:07→21:48)
[2018-04-25] MEDS: Potassium Phosphates 25 MMOLE in Sodium Chloride 0.9% 250 ML IV SCH ×3 (10:07→18:28)
--- NOTE | 2018-04-25 11:31 | PCM.PN ---
- General Info Date of Service: 04/25/18 - Review of Systems General: Denies: Fever Musculoskeletal: Reports: Joint Pain Systems Review Comment:: There were no acute events overnight. Leg pain has improved significantly since yesterday and he was able to ambulate all the way down to the clinic in back today. Pain is minimal at this time. He has not had any fevers. No abdominal pain or nausea. He has had some diarrhea. Culture from the left knee fluid is pending and subcultures are being performed at this time. Tolerating current antibiotics. Mental status seems better today. - Patient Data Vitals - Most Recent: Last Vital Signs Temp 36.4 C 04/25/18 10:38 Pulse 71 04/25/18 10:38 Resp 16 04/25/18 10:38 BP 90/56 L 04/25/18 10:38 Pulse Ox 97 04/25/18 10:38 Weight - Most Recent: 72.847 kg I&O - Last 24 Hours: Intake & Output 04/24/18 04/25/18 04/25/18 22:59 06:59 14:59 Intake Total 1606 802 Output Total 20 400 Balance 1586 802 -400 Lab Results Last 24 Hours: Laboratory Results - last 24 hr 04/25/18 04/25/18 Range/Units 04:34 04:34 WBC 10.8 (4.5-11.0) K/uL RBC 2.83 L (4.30-5.90) M/uL Hgb 9.4 L D (12.0-15.0) g/dL Hct 29.2 L (40.0-54.0) % MCV 103 H (80-98) fL MCH 33 H (27-31) pg MCHC 32 (32-36) % Plt Count 327 (150-400) K/uL Sodium 144 (140-148) mmol/L Potassium 2.9 L* (3.6-5.2) mmol/L Chloride 109 H (100-108) mmol/L Carbon Dioxide 29 (21-32) mmol/L Anion Gap 8.9 (5.0-14.0) mmol/L BUN 10 (7-18) mg/dL Creatinine 1.1 (0.8-1.3) mg/dL Est Cr Clr Drug Dosing 63.05 mL/min Estimated GFR (MDRD) > 60 (>60) Glucose 98 (74-106) mg/dL Calcium 8.5 (8.5-10.1) mg/dL Phosphorus 2.7 (2.5-4.9) mg/dL Magnesium 2.0 (1.8-2.4) mg/dL Total Bilirubin 0.4 (0.2-1.0) mg/dL AST 48 H D (15-37) U/L ALT 38 (12-78) U/L Alkaline Phosphatase 55 (46-116) U/L Total Protein 5.5 L (6.4-8.2) g/dL Albumin 2.0 L (3.4-5.0) g/dL Globulin 3.5 (2.3-3.5) g/dL Albumin/Globulin Ratio 0.6 L (1.2-2.2) Ad Results Last 24 Hours: Microbiology 04/23/18 16:57 Anaerobic Culture - Preliminary Knee, Left NO GROWTH AFTER 1 DAY 04/23/18 16:48 Gram Stain - Final Knee Fluid - Knee, Left Body Fluid Culture - Preliminary 04/23/18 17:38 Aerobic Blood Culture - Preliminary Blood - Arm, Right NO GROWTH AFTER 1 DAY Anaerobic Blood Culture - Preliminary NO GROWTH AFTER 1 DAY 04/23/18 17:25 Aerobic Blood Culture - Preliminary Blood - Arm, Right NO GROWTH AFTER 1 DAY Anaerobic Blood Culture - Preliminary NO GROWTH AFTER 1 DAY Med Orders - Current: Current Medications Acetaminophen (Tylenol JrMary [place]) 640 mg PO QID [facility] Last Admin: 04/25/18 10:06 Dose: 640 mg Bupropion HCl (Wellbutrin) 150 mg PO BID [facility] Last Admin: 04/25/18 08:05 Dose: 150 mg Diclofenac Potassium (Cataflam) 50 mg PO BID [facility] Last Admin: 04/25/18 08:05 Dose: 50 mg Hydromorphone HCl (Dilaudid) 2 - 4 mg PO Q4H PRN PRN Reason: Pain Last Admin: 04/23/18 13:13 Dose: 4 mg Cefazolin Sodium/Dextrose 2 gm (/ Premix) 50 mls @ 100 mls/hr IV Q8H [facility] Last Admin: 04/25/18 04:45 Dose: 100 mls/hr Vancomycin HCl 1 gm/ Sodium (Chloride) 250 mls @ 150 mls/hr IV Q12H [facility] Last Admin: 04/25/18 08:19 Dose: 150 mls/hr Potassium Phosphate 25 mmole/ (Sodium Chloride) 258.3333 mls @ 65 mls/hr IV Q4H [facility] Stop: 04/25/18 21:59 Last Admin: 04/25/18 10:07 Dose: 65 mls/hr Inulin (Fiber Choice) 4.5 gm PO BID [facility] Last Admin: 04/25/18 10:07 Dose: 4.5 gm Mcdonald Carbonate (Mcdonald Carbonate) 300 mg PO TID [facility] Last Admin: 04/25/18 08:05 Dose: 300 mg Lorazepam (Ativan) 0.5 - 1 mg IV Q6H PRN PRN Reason: ANEXITY Last Admin: 04/24/18 21:31 Dose: 1 mg Melatonin (Melatonin) 9 mg PO BEDTIME [facility] Last Admin: 04/24/18 21:07 Dose: 9 mg Metoclopramide HCl (Reglan) 10 mg IV Q6H [facility] Last Admin: 04/25/18 08:05 Dose: 10 mg Ondansetron HCl (Zofran) 4 mg IV Q4H PRN PRN Reason: N/V Last Admin: 04/24/18 21:21 Dose: 4 mg Pantoprazole Sodium (Protonix Granules) 40 mg PO Q12H [facility] Last Admin: 04/25/18 10:07 Dose: 40 mg Polyethylene Glycol (Miralax) 17 gm PO BID [facility] Last Admin: 04/25/18 08:03 Dose: Not Given Ropinirole HCl (Requip) 0.5 mg PO BEDTIME [facility] Last Admin: 04/24/18 21:07 Dose: 0.5 mg Sertraline HCl (Zoloft) 50 mg PO DAILY [facility] Last Admin: 04/25/18 08:04 Dose: 50 mg Sodium Chloride (Saline Flush) 10 ml IV ASDIRECTED PRN PRN Reason: FLUSH Tamsulosin HCl (Flomax) 0.4 mg PO BEDTIME [facility] Last Admin: 04/24/18 21:07 Dose: 0.4 mg Discontinued Medications Acetaminophen (Tylenol Extra Strength) 1,000 mg PO ONETIME ONE Stop: 04/20/18 05:46 Last Admin: 04/20/18 05:53 Dose: 1,000 mg Acetaminophen (Tylenol Jr. Meltaways) 640 mg PO Q4H PRN PRN Reason: Temp Last Admin: 04/24/18 10:10 Dose: 640 mg Ropivacaine 37 ml/Dexamethasone 8 mg/Epinephrine HCl 0.4 mg/ Sodium Chloride 40.6 ml 0 ml NERVRT ASDIRECTED [facility] Last Admin: 04/20/18 08:17 Dose: 100 syringe Dexamethasone (Dexamethasone) Confirm Administered Dose 4 mg .ROUTE .STK-MED ONE Stop: 04/20/18 07:07 Fentanyl (Sublimaze) Confirm Administered Dose 250 mcg .ROUTE .STK-MED ONE Stop: 04/20/18 07:07 Fentanyl (Sublimaze) Confirm Administered Dose 100 mcg .ROUTE .STK-MED ONE Stop: 04/20/18 09:09 Glycopyrrolate (Robinul) Confirm Administered Dose 1 mg .ROUTE .STK-MED ONE Stop: 04/20/18 07:07 Hydromorphone HCl (Dilaudid Estate Planning Attorney 15 Mg In Ns 30 Ml) 0 mg IV ASDIRECTED PRN; Protocol PRN Reason: Pain Last Admin: 04/22/18 16:53 Dose: 15 mg Cefoxitin Sodium 2 gm/ Sodium (Chloride) 50 mls @ 100 mls/hr IV ONETIME ONE Stop: 04/20/18 07:44 Last Admin: 04/20/18 13:19 Dose: Not Given Dextrose/Lactated Ringer's (Dextrose 5%-Lactated Ringers) 1,000 mls @ 100 [facility]ls[facility] Last Admin: 04/20/18 06:39 Dose: 100 mls/hr Dextrose/Lactated Ringer's (Dextrose 5%-Lactated Ringers) 1,000 mls @ 100 mls/ hr IV ASDIRECTED [facility] Last Admin: 04/23/18 07:08 Dose: 150 mls/hr Dextrose/Lactated Ringer's (Dextrose 5%-Lactated Ringers) 1,000 mls @ 80 mls/ hr IV ASDIRECTED [facility] Last Admin: 04/25/18 02:25 Dose: 80 mls/hr Vancomycin HCl 1.5 gm/ Sodium (Chloride) 500 mls @ 300 mls/hr IV ONETIME ONE Stop: 04/23/18 20:39 Last Admin: 04/23/18 20:17 Dose: 300 mls/hr Sodium Chloride (Normal Saline) 100 mls @ 3 mls/sec IV ASDIRECTED [facility] Stop: 04/24/18 07:01 Last Admin: 04/24/18 10:24 Dose: 3 mls/sec Iohexol (Omnipaque-300) 50 ml PO ONETIME ONE Stop: 04/24/18 07:01 Last Admin: 04/24/18 10:26 Dose: 10 ml Iopamidol (Isovue-300 (61%)) 100 ml IV ONETIME ONE Stop: 04/24/18 07:01 Last Admin: 04/24/18 10:24 Dose: 100 ml Ketamine HCl (Ketalar) 34 mg IV ASDIRECTED [facility] Meropenem (Merrem) Confirm Administered Dose 500 mg .ROUTE .STK-MED ONE Stop: 04/20/18 08:39 Last Admin: 04/20/18 08:51 Dose: 500 mg Naloxone HCl (Narcan) 0.1 mg IVPUSH Q2M PRN PRN Reason: Respiratory Distress Neostigmine Methylsulfate (Neostigmine) Confirm Administered Dose 5 mg .ROUTE .STK-MED ONE Stop: 04/20/18 07:07 Ondansetron HCl (Zofran) Confirm Administered Dose 4 mg .ROUTE .STK-MED ONE Stop: 04/20/18 07:07 Pantoprazole Sodium (Protonix Iv) 40 mg IV Q12H [facility] Last Admin: 04/25/18 00:11 Dose: 40 mg Propofol (Diprivan 20 Ml) Confirm Administered Dose 200 mg .ROUTE .STK-MED ONE Stop: 04/20/18 07:07 Rocuronium [place] (Zemuron) Confirm Administered Dose 50 mg .ROUTE .STK-MED ONE Stop: 04/20/18 07:07 Scopolamine (Transderm-Scop) 1.5 mg TRDERM Q72H [facility] Stop: 04/22/18 05:46 Last Admin: 04/20/18 05:56 Dose: 1.5 mg Succinylcholine Chloride (Quelicin) Confirm Administered Dose 200 mg .ROUTE .STK -MED ONE Stop: 04/20/18 07:07 Sugammadex Sodium (Bridion) Confirm Administered Dose 200 mg .ROUTE .STK-MED ONE Stop: 04/20/18 09:29 Vancomycin HCl (Vancomycin) Confirm Administered Dose 2,000 mg .ROUTE .STK-MED ONE Stop: 04/23/18 19:28 Last Admin: 04/23/18 20:21 Dose: Not Given - Exam Quality Assessment: No: Supplemental Oxygen General: Alert, Oriented, Cooperative, No Acute Distress Lungs: Normal Respiratory Effort Cardiovascular: Regular Rate, Regular Rhythm GI/Abdominal Exam: Soft, No Distention Extremities: No Pedal Edema, Joint Swelling (Mild left knee, especially medially ), Increased Warmth (Very mild left knee) Skin: Warm, Dry Psy/Mental Status: Alert, Normal Affect - Problem List Review Problem List Initiated/Reviewed/Updated: Yes - My Orders Last 24 Hours: My Active Orders 04/24/18 12:15 Diclofenac Potassium [Cataflam] 50 mg PO BID 04/24/18 13:22 PT Evaluation and Treatment [CONS] Routine 04/24/18 16:00 Acetaminophen [Tylenol Jr. Meltaways] 640 mg PO QID 04/24/18 21:00 Melatonin 9 mg PO BEDTIME 04/25/18 04:20 LITHIUM (ESKALITH(R)), SERUM Routine - Plan Plan:: ASSESSMENT AND PLAN - Left knee pain and swelling - suspect trauma leading to a flare of osteoarthritis and inflammatory changes with differential including CPPD versus infection. Cultures are pending. Swelling and warmth of the knee have improved significantly. Pain has improved significantly and he is able to bear weight without much difficulty. -Continue anti-inflammatories -Follow-up cultures -Continue vancomycin and cefazolin until further culture results are available -Ice every 4 hours -Pain control -Increase activity as tolerated -Physical therapy -Consider advanced imaging such as MRI if pain worsens or does not get better Hypoactive delirium - patient has been lethargic and intermittently confused. I suspect this is related to pain medications with possible contribution from infection and/or inflammation. Slowly getting better and nearing baseline. -Minimize narcotics -Increase activity as tolerated -Follow-up Mcd[place] level -Melatonin at bedtime Clemente Benson M.D.
[2018-04-25] MEDS: ALPRAZolam 0.5 MG Tab PO PRN (16:26)
[2018-04-25] MEDS ORDERED: Benzocaine/Cetylpyridinium/Menthol Lozenge MUCMEM PRN (18:38)
[2018-04-25] MEDS: Melatonin 3 MG Tab PO SCH (20:25)
[2018-04-25] MEDS: Tamsulosin 0.4 MG Cap.ER PO SCH (20:25)
[2018-04-25] MEDS: rOPINIRole 0.5 MG Tab PO SCH (20:26)
[2018-04-26] MEDS: Metoclopramide 10 MG/2 ML SDV IV SCH (02:40)
[2018-04-26] MEDS: ALPRAZolam 0.5 MG Tab PO PRN ×4 (03:55→21:41)
[2018-04-26] MEDS: ceFAZolin 2 GM in Premix Bag 1 BAG IV SCH ×3 (03:55→20:57)
[2018-04-26] MEDS ORDERED: Hypromellose 0.4% Ophth Soln 15 ML Bottle EYEBOTH PRN (04:33)
[2018-04-26] MEDS: Acetaminophen 160 MG Tab,Disintegrating PO SCH ×5 (05:07→21:01)
[2018-04-26] MEDS: Lactobacillus Rhamnosus GG (Probiotic) Cap PO SCH ×2 (08:41→20:05)
[2018-04-26] MEDS: Inulin 1.5 GM Chewable Tab PO SCH ×2 (08:42→20:03)
[2018-04-26] MEDS: Sertraline 50 MG Tab PO SCH (08:43)
[2018-04-26] MEDS: Potassium Acetate 20 MEQ, Lidocaine 1% 2 ML in Sodium Chloride 0.9% 100 ML IV SCH ×3 (08:54→13:57)
[2018-04-26] MEDS: Polyethylene Glycol 3350 Powder 17 GM Packet PO SCH ×2 (10:12→20:06)
--- NOTE | 2018-04-26 10:49 | PCM.PN ---
- General Info Date of Service: 04/26/18 Functional Status: Reports: Pain Controlled, Tolerating Diet, Ambulating - Review of Systems General: Denies: Fever Musculoskeletal: Reports: Joint Pain (left knee) Systems Review Comment:: No acute events overnight. Knee pain has improved some compared to yesterday but the swelling lateral to the patella seems a little bit more impressive today. He has been able to ambulate effectively without significant pain. He has not had any fevers. No complaints of abdominal pain. He does still have some diarrhea. Culture from the left knee fluid is still being subculture with identification pending. - Patient Data Vitals - Most Recent: Last Vital Signs Temp 36.6 C 04/26/18 10:19 Pulse 71 04/26/18 10:19 Resp 16 04/26/18 10:19 BP 100/69 04/26/18 10:19 Pulse Ox 99 04/26/18 10:19 Weight - Most Recent: 72.847 kg I&O - Last 24 Hours: Intake & Output 04/25/18 04/26/18 04/26/18 22:59 06:59 14:59 Intake Total 3233 681 6736 Output Total 0 10 Balance 7398 175 6663 Lab Results Last 24 Hours: Laboratory Results - last 24 hr 04/26/18 04/26/18 04/26/18 Range/Units 04:30 04:30 07:45 WBC 9.4 (4.5-11.0) K/uL RBC 2.85 L (4.30-5.90) M/uL Hgb 9.5 L (12.0-15.0) g/dL Hct 29.5 L (40.0-54.0) % MCV 104 H (80-98) fL MCH 33 H (27-31) pg MCHC 32 (32-36) % Plt Count 380 (150-400) K/uL Sodium 146 (140-148) mmol/L Potassium 3.3 L (3.6-5.2) mmol/L Chloride 112 H (100-108) mmol/L Carbon Dioxide 27 (21-32) mmol/L Anion Gap 10.3 (5.0-14.0) mmol/L BUN 10 (7-18) mg/dL Creatinine 1.2 (0.8-1.3) mg/dL Est Cr Clr Drug Dosing 57.79 mL/min Estimated GFR (MDRD) > 60 (>60) Glucose 93 (74-106) mg/dL Calcium 8.4 L (8.5-10.1) mg/dL Phosphorus 4.5 (2.5-4.9) mg/dL Magnesium 2.0 (1.8-2.4) mg/dL Total Bilirubin 0.3 (0.2-1.0) mg/dL AST 114 H D (15-37) U/L ALT 92 H (12-78) U/L Alkaline Phosphatase 59 (46-116) U/L Total Protein 5.7 L (6.4-8.2) g/dL Albumin 2.2 L (3.4-5.0) g/dL Globulin 3.5 (2.3-3.5) g/dL Albumin/Globulin Ratio 0.6 L (1.2-2.2) Vancomycin Trough 13.8 (10.0-20.0) ug/mL Ad Results Last 24 Hours: Microbiology 04/23/18 16:48 Gram Stain - Final Knee Fluid - Knee, Left Body Fluid Culture - Preliminary 04/23/18 16:57 Anaerobic Culture - Preliminary Knee, Left NO GROWTH AFTER 2 DAYS 04/23/18 17:38 Aerobic Blood Culture - Preliminary Blood - Arm, Right NO GROWTH AFTER 2 DAYS Anaerobic Blood Culture - Preliminary NO GROWTH AFTER 2 DAYS 04/23/18 17:25 Aerobic Blood Culture - Preliminary Blood - Arm, Right NO GROWTH AFTER 2 DAYS Anaerobic Blood Culture - Preliminary NO GROWTH AFTER 2 DAYS 04/25/18 12:49 Clostridium difficile (PCR) - Final Stool / Feces NEGATIVE CDIFF TOXIN Med Orders - Current: Current Medications Acetaminophen (Tylenol JrMary Quintanilla) 640 mg PO QID [facility] Last Admin: 04/26/18 05:07 Dose: 640 mg Alprazolam (Xanax) 0.5 - 1 mg PO TID PRN PRN Reason: Anxiety Last Admin: 04/26/18 05:07 Dose: 0.5 mg Artificial Tears (Natural Balance Tears) 0 ml EYEBOTH Q2H PRN PRN Reason: Dry Eyes Last Admin: 04/26/18 05:07 Dose: 1 drop Benzocaine/Menthol (Cepacol Sore Throat) 1 lozenge MUCMEM 6XDAY PRN PRN Reason: Sore Throat Last Admin: 04/25/18 18:46 Dose: 1 lozenge Bupropion HCl (Wellbutrin) 150 mg PO BID [facility] Last Admin: 04/26/18 08:42 Dose: 150 mg Diclofenac Potassium (Cataflam) 50 mg PO BID [facility] Last Admin: 04/26/18 08:41 Dose: 50 mg Hydromorphone HCl (Dilaudid) 2 - 4 mg PO Q4H PRN PRN Reason: Pain Last Admin: 04/23/18 13:13 Dose: 4 mg Cefazolin Sodium/Dextrose 2 gm (/ Premix) 50 mls @ 100 mls/hr IV Q8H [facility] Last Admin: 04/26/18 03:55 Dose: 100 mls/hr Vancomycin HCl 1 gm/ Sodium (Chloride) 250 mls @ 150 mls/hr IV Q12H [facility] Last Admin: 04/26/18 08:46 Dose: 150 mls/hr Potassium Acetate 20 meq/Lidocaine HCl 2 ml/ Sodium Chloride 112 mls @ 56 mls/ hr IV Q2H [facility] Stop: 04/26/18 14:59 Last Admin: 04/26/18 08:54 Dose: 56 mls/hr Inulin (Fiber Choice) 4.5 gm PO BID [facility] Last Admin: 04/26/18 08:42 Dose: 4.5 gm Lactobacillus Rhamnosus (Culturelle) 2 cap PO BID [facility] Last Admin: 04/26/18 08:41 Dose: 2 cap [place] Carbonate ([place] Carbonate) 300 mg PO TID [facility] Last Admin: 04/26/18 08:42 Dose: 300 mg Melatonin (Melatonin) 9 mg PO BEDTIME [facility] Last Admin: 04/25/18 20:25 Dose: 9 mg Ondansetron HCl (Zofran) 4 mg IV Q4H PRN PRN Reason: N/V Last Admin: 04/24/18 21:21 Dose: 4 mg Pantoprazole Sodium (Protonix Granules) 40 mg PO Q12H [facility] Last Admin: 04/25/18 21:48 Dose: 40 mg Polyethylene Glycol (Miralax) 17 gm PO BID [facility] Last Admin: 04/26/18 10:12 Dose: Not Given Ropinirole HCl (Requip) 0.5 mg PO BEDTIME [facility] Last Admin: 04/25/18 20:26 Dose: 0.5 mg Sertraline HCl (Zoloft) 50 mg PO DAILY [facility] Last Admin: 04/26/18 08:43 Dose: 50 mg Sodium Chloride (Saline Flush) 10 ml IV ASDIRECTED PRN PRN Reason: FLUSH Tamsulosin HCl (Flomax) 0.4 mg PO BEDTIME [facility] Last Admin: 04/25/18 20:25 Dose: 0.4 mg Discontinued Medications Acetaminophen (Tylenol Extra Strength) 1,000 mg PO ONETIME ONE Stop: 04/20/18 05:46 Last Admin: 04/20/18 05:53 Dose: 1,000 mg Acetaminophen (Tylenol Jr. Meltaways) 640 mg PO Q4H PRN PRN Reason: Temp Last Admin: 04/24/18 10:10 Dose: 640 mg Ropivacaine 37 ml/Dexamethasone 8 mg/Epinephrine HCl 0.4 mg/ Sodium Chloride 40.6 ml 0 ml NERVRT ASDIRECTED [facility] Last Admin: 04/20/18 08:17 Dose: 100 syringe Dexamethasone (Dexamethasone) Confirm Administered Dose 4 mg .ROUTE .STK-MED ONE Stop: 04/20/18 07:07 Fentanyl (Sublimaze) Confirm Administered Dose 250 mcg .ROUTE .STK-MED ONE Stop: 04/20/18 07:07 Fentanyl (Sublimaze) Confirm Administered Dose 100 mcg .ROUTE .STK-MED ONE Stop: 04/20/18 09:09 Glycopyrrolate (Robinul) Confirm Administered Dose 1 mg .ROUTE .STK-MED ONE Stop: 04/20/18 07:07 Hydromorphone HCl (Dilaudid Insert Molding Operator 15 Mg In Ns 30 Ml) 0 mg IV ASDIRECTED PRN; Protocol PRN Reason: Pain Last Admin: 04/22/18 16:53 Dose: 15 mg Cefoxitin Sodium 2 gm/ Sodium (Chloride) 50 mls @ 100 mls/hr IV ONETIME ONE Stop: 04/20/18 07:44 Last Admin: 04/20/18 13:19 Dose: Not Given Dextrose/Lactated Ringer's (Dextrose 5%-Lactated Ringers) 1,000 mls @ 100 mls/ hr IV ASDIRECTED [facility] Last Admin: 04/20/18 06:39 Dose: 100 mls/hr Dextrose/Lactated Ringer's (Dextrose 5%-Lactated Ringers) 1,000 mls @ 100 mls/ hr IV ASDIRECTED [facility] Last Admin: 04/23/18 07:08 Dose: 150 mls/hr Dextrose/Lactated Ringer's (Dextrose 5%-Lactated Ringers) 1,000 mls @ 80 mls/ hr IV ASDIRECTED [facility] Last Admin: 04/25/18 02:25 Dose: 80 mls/hr Vancomycin HCl 1.5 gm/ Sodium (Chloride) 500 mls @ 300 mls/hr IV ONETIME ONE Stop: 04/23/18 20:39 Last Admin: 04/23/18 20:17 Dose: 300 mls/hr Sodium Chloride (Normal Saline) 100 mls @ 3 mls/sec IV ASDIRECTED [facility] Stop: 04/24/18 07:01 Last Admin: 04/24/18 10:24 Dose: 3 mls/sec Potassium Phosphate 25 mmole/ (Sodium Chloride) 258.3333 mls @ 65 mls/hr IV Q4H [facility] Stop: 04/25/18 21:59 Last Admin: 04/25/18 18:28 Dose: 65 mls/hr Iohexol (Omnipaque-300) 50 ml PO ONETIME ONE Stop: 04/24/18 07:01 Last Admin: 04/24/18 10:26 Dose: 10 ml Iopamidol (Isovue-300 (61%)) 100 ml IV ONETIME ONE Stop: 04/24/18 07:01 Last Admin: 04/24/18 10:24 Dose: 100 ml Ketamine HCl (Ketalar) 34 mg IV ASDIRECTED [facility] Lorazepam (Ativan) 0.5 - 1 mg IV Q6H PRN PRN Reason: ANEXITY Last Admin: 04/24/18 21:31 Dose: 1 mg Meropenem (Merrem) Confirm Administered Dose 500 mg .ROUTE .STK-MED ONE Stop: 04/20/18 08:39 Last Admin: 04/20/18 08:51 Dose: 500 mg Metoclopramide HCl (Reglan) 10 mg IV Q6H [facility] Last Admin: 04/26/18 02:40 Dose: 10 mg Naloxone HCl (Narcan) 0.1 mg IVPUSH Q2M PRN PRN Reason: Respiratory Distress Neostigmine Methylsulfate (Neostigmine) Confirm Administered Dose 5 mg .ROUTE .STK-MED ONE Stop: 04/20/18 07:07 Ondansetron HCl (Zofran) Confirm Administered Dose 4 mg .ROUTE .STK-MED ONE Stop: 04/20/18 07:07 Pantoprazole Sodium (Protonix Iv) 40 mg IV Q12H [facility] Last Admin: 04/25/18 00:11 Dose: 40 mg Propofol (Diprivan 20 Ml) Confirm Administered Dose 200 mg .ROUTE .STK-MED ONE Stop: 04/20/18 07:07 Rocuronium [place] (Zemuron) Confirm Administered Dose 50 mg .ROUTE .STK-MED ONE Stop: 04/20/18 07:07 Scopolamine (Transderm-Scop) 1.5 mg TRDERM Q72H [facility] Stop: 04/22/18 05:46 Last Admin: 04/20/18 05:56 Dose: 1.5 mg Succinylcholine Chloride (Quelicin) Confirm Administered Dose 200 mg .ROUTE .STK -MED ONE Stop: 04/20/18 07:07 Sugammadex Sodium (Bridion) Confirm Administered Dose 200 mg .ROUTE .STK-MED ONE Stop: 04/20/18 09:29 Vancomycin HCl (Vancomycin) Confirm Administered Dose 2,000 mg .ROUTE .STK-MED ONE Stop: 04/23/18 19:28 Last Admin: 04/23/18 20:21 Dose: Not Given - Exam Quality Assessment: No: Supplemental Oxygen General: Alert, Oriented, Cooperative, No Acute Distress Lungs: Normal Respiratory Effort GI/Abdominal Exam: Soft, No Distention Extremities: No Pedal Edema, Joint Swelling (left knee superior and lateral to patella), Increased Warmth (left knee (mild)) Skin: Warm, Dry Psy/Mental Status: Alert, Normal Affect - Problem List Review Problem List Initiated/Reviewed/Updated: Yes - Plan Plan:: ASSESSMENT AND PLAN - Left knee pain and swelling - suspect trauma leading to a flare of osteoarthritis and inflammatory changes with differential including CPPD versus infection. Cultures are pending. Swelling and warmth of the knee have improved significantly. Pain has improved significantly and he is able to bear weight without much difficulty. -Continue anti-inflammatories -Follow-up cultures -Continue vancomycin and cefazolin until further culture results are available -Ice every 4 hours -Pain control -Increase activity as tolerated -Physical therapy -Consider advanced imaging such as MRI if pain worsens or does not get better -Outpatient follow-up with Gerry Hutchison next week to consider steroid injection Hypoactive delirium - patient has been lethargic and intermittently confused. I suspect this is related to pain medications with possible contribution from infection and/or inflammation. Slowly getting better and nearing baseline. -Minimize narcotics -Increase activity as tolerated -Follow-up [place] level -Melatonin at bedtime Clemente Benson M.D.
[2018-04-26] MEDS: Pantoprazole 40 MG Delayed-Release Granules 1 Packet PO SCH ×2 (11:28→21:01)
[2018-04-26] MEDS: Melatonin 3 MG Tab PO SCH (19:59)
[2018-04-26] MEDS: rOPINIRole 0.5 MG Tab PO SCH (19:59)
[2018-04-26] MEDS: Tamsulosin 0.4 MG Cap.ER PO SCH (20:06)
[2018-04-27] MEDS: ceFAZolin 2 GM in Premix Bag 1 BAG IV SCH (04:16)
[2018-04-27] MEDS: Acetaminophen 160 MG Tab,Disintegrating PO SCH ×2 (05:45→11:56)
[2018-04-27 08:18] VITALS: BP 106/79
[2018-04-27] MEDS: Lactobacillus Rhamnosus GG (Probiotic) Cap PO SCH (09:16)
[2018-04-27] MEDS: Inulin 1.5 GM Chewable Tab PO SCH (09:16)
[2018-04-27] MEDS: Polyethylene Glycol 3350 Powder 17 GM Packet PO SCH (09:17)
[2018-04-27] MEDS: Sertraline 50 MG Tab PO SCH (09:17)
--- NOTE | 2018-04-27 09:33 | PN ---
DATE OF SERVICE: 04/27/2018 SUBJECTIVE: Bobby reports that a thin to full liquid diet is going down well. Pain is controlled. Temp max of 99.7. He does report that he has been incontinent of urine and had 3 loose stools yesterday, which has improved. Left knee culture grew out Roseomonas gilardii gram-positive rods. He states he is able to walk on his knee. He remains to be painful, but has improved. REVIEW OF SYSTEMS: Remainder of review of systems is negative for any pertinent positives and negatives. OBJECTIVE: GENERAL: Bobby Morris is a 67-year-old male, alert and orientated. VITAL SIGNS: TPR is 99, 67, 18, and blood pressure 127/77. HEENT: Negative. NECK: Supple. HEART: Regular rate and rhythm. LUNGS: Clear. ABDOMEN: Negative. MEGAN drain intact. Abdominal binder is on. EXTREMITIES: Left knee remains to be swollen but has shown improvement from over the weekend. No peripheral edema. ASSESSMENT: 1. 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 Date of surgery 04/20/2018. Surgeon, Richard Ludwig MD. 2. Left knee swollen, status post removal of fluid per Gerry Hutchison PA-C. 3. Culture of knee fluid, Roseomonas gilardii. PLAN: 1. Dr. Ward will be the hospitalist valuation consultant. We will call in regard to antibiotic therapy. 2. To follow up with Ortho in regard to the culture report. 3. Continue full liquid diet with clear Ensure Mixed Adams with each tray and in between meals. 4. Check UA, UC. 5. Discontinue MEGAN drain. 6. We will evaluate p.r.n. or in a.m. Nataly Nance PA-C /[id number]
[2018-04-27] MEDS: Pantoprazole 40 MG Delayed-Release Granules 1 Packet PO SCH (09:43)
--- NOTE | 2018-04-27 11:28 | PCM.PN ---
- General Info Date of Service: 04/27/18 Subjective Update: Mr. Morris is a 67-year-old gentleman who was admitted last week for Audelia fundoplication for management of chronic esophageal reflux. Hospital course was complicated by inflammation in his left knee. He was seen and evaluated by orthopedic surgery and aspiration of the knee was performed, white count was 20, 000 and cultures have grown out a few Rosomonas Gilardii as well as Gram positive rods. He was started on antibiotic therapy with vancomycin and Cefazolin, white blood cell count has normalized. Knee improved significantly following joint aspiration and has remained good over the past few days. Current feeling is that positive culture results represent contamination rather than true underlying infection. - Review of Systems General: Denies: Fever, Weakness, Chills Pulmonary: Reports: No Symptoms Cardiovascular: Reports: No Symptoms Gastrointestinal: Reports: No Symptoms - Patient Data Vitals - Most Recent: Last Vital Signs Temp 98.2 F 04/27/18 08:15 Pulse 72 04/27/18 08:15 Resp 15 04/27/18 08:15 BP 106/79 04/27/18 08:15 Pulse Ox 100 04/27/18 08:15 Weight - Most Recent: 160 lb 9.6 oz I&O - Last 24 Hours: Intake & Output 04/26/18 04/27/18 04/27/18 22:59 06:59 14:59 Intake Total 1230 290 Output Total 10 1100 300 Balance 1220 -810 -300 Lab Results Last 24 Hours: Laboratory Results - last 24 hr 04/27/18 04/27/18 Range/Units 04:10 07:14 Sodium 143 (140-148) mmol/L Potassium 3.7 (3.6-5.2) mmol/L Chloride 109 H (100-108) mmol/L Carbon Dioxide 29 (21-32) mmol/L Anion Gap 8.7 (5.0-14.0) mmol/L BUN 9 (7-18) mg/dL Creatinine 1.2 (0.8-1.3) mg/dL Est Cr Clr Drug Dosing 57.79 mL/min Estimated GFR (MDRD) > 60 (>60) Glucose 89 (74-106) mg/dL Calcium 8.9 (8.5-10.1) mg/dL Phosphorus 3.0 (2.5-4.9) mg/dL Magnesium 1.9 (1.8-2.4) mg/dL Urine Color Yellow Urine Appearance Clear Urine pH 8.0 (4.5-8.0) Ur Specific Lucas 1.010 (1.008-1.030) Urine Protein Negative (NEGATIVE) mg/dL Urine Glucose (UA) Normal (NEGATIVE) mg/dL Urine Ketones Negative (NEGATIVE) mg/dL Urine Occult Blood Negative (NEGATIVE) Urine Nitrite Negative (NEGAITVE) Urine Bilirubin Negative (NEGATIVE) Urine Urobilinogen Normal (NORMAL) mg/dL Ur Leukocyte Esterase Negative (NEGATIVE) Urine RBC Not seen (0-5) Urine WBC Not seen (0-5) Ur Epithelial Cells Not seen Amorphous Sediment Rare Urine Bacteria Not seen Urine Mucus Not seen Ad Results Last 24 Hours: Microbiology 04/23/18 16:57 Anaerobic Culture - Final Knee, Left NO GROWTH AFTER 3 DAYS 04/23/18 16:48 Gram Stain - Final Knee Fluid - Knee, Left Body Fluid Culture - Final Roseomonas Gilardii Gram Positive Rods 04/23/18 17:38 Aerobic Blood Culture - Preliminary Blood - Arm, Right NO GROWTH AFTER 3 DAYS Anaerobic Blood Culture - Preliminary NO GROWTH AFTER 3 DAYS 04/23/18 17:25 Aerobic Blood Culture - Preliminary Blood - Arm, Right NO GROWTH AFTER 3 DAYS Anaerobic Blood Culture - Preliminary NO GROWTH AFTER 3 DAYS Med Orders - Current: Current Medications Acetaminophen (Tylenol JrMary Bakerawaykamille) 640 mg PO QID [facility] Last Admin: 04/27/18 05:45 Dose: 640 mg Alprazolam (Xanax) 0.5 - 1 mg PO TID PRN PRN Reason: Anxiety Last Admin: 04/26/18 21:41 Dose: 0.5 mg Artificial Tears (Natural Balance Tears) 0 ml EYEBOTH Q2H PRN PRN Reason: Dry Eyes Last Admin: 04/26/18 05:07 Dose: 1 drop Benzocaine/Menthol (Cepacol Sore Throat) 1 lozenge MUCMEM 6XDAY PRN PRN Reason: Sore Throat Last Admin: 04/25/18 18:46 Dose: 1 lozenge Bupropion HCl (Wellbutrin) 150 mg PO BID [facility] Last Admin: 04/27/18 09:17 Dose: 150 mg Diclofenac Potassium (Cataflam) 50 mg PO BID [facility] Last Admin: 09/17/18 09:15 Dose: 50 mg Hydromorphone HCl (Dilaudid) 2 - 4 mg PO Q4H PRN PRN Reason: Pain Last Admin: 04/23/18 13:13 Dose: 4 mg Inulin (Fiber Choice) 4.5 gm PO BID [facility] Last Admin: 04/27/18 09:16 Dose: 4.5 gm Lactobacillus Rhamnosus (Culturelle) 2 cap PO BID [facility] Last Admin: 04/27/18 09:16 Dose: 2 cap [place] Carbonate ([place] Carbonate) 300 mg PO TID [facility] Last Admin: 04/27/18 09:17 Dose: 300 mg Melatonin (Melatonin) 9 mg PO BEDTIME [facility] Last Admin: 04/26/18 19:59 Dose: 9 mg Ondansetron HCl (Zofran) 4 mg IV Q4H PRN PRN Reason: N/V Last Admin: 04/24/18 21:21 Dose: 4 mg Pantoprazole Sodium (Protonix Granules) 40 mg PO Q12H [facility] Last Admin: 04/27/18 09:43 Dose: 40 mg Polyethylene Glycol (Miralax) 17 gm PO BID [facility] Last Admin: 04/27/18 09:17 Dose: Not Given Ropinirole HCl (Requip) 0.5 mg PO BEDTIME [facility] Last Admin: 04/26/18 19:59 Dose: 0.5 mg Sertraline HCl (Zoloft) 50 mg PO DAILY [facility] Last Admin: 04/27/18 09:17 Dose: 50 mg Sodium Chloride (Saline Flush) 10 ml IV ASDIRECTED PRN PRN Reason: FLUSH Tamsulosin HCl (Flomax) 0.4 mg PO BEDTIME [facility] Last Admin: 04/26/18 20:06 Dose: Not Given Discontinued Medications Acetaminophen (Tylenol Extra Strength) 1,000 mg PO ONETIME ONE Stop: 04/20/18 05:46 Last Admin: 04/20/18 05:53 Dose: 1,000 mg Acetaminophen (Tylenol Jr. Meltaways) 640 mg PO Q4H PRN PRN Reason: Temp Last Admin: 04/24/18 10:10 Dose: 640 mg Ropivacaine 37 ml/Dexamethasone 8 mg/Epinephrine HCl 0.4 mg/ Sodium Chloride 40.6 ml 0 ml NERVRT ASDIRECTED [facility] Last Admin: 04/20/18 08:17 Dose: 100 syringe Dexamethasone (Dexamethasone) Confirm Administered Dose 4 mg .ROUTE .STK-MED ONE Stop: 04/20/18 07:07 Fentanyl (Sublimaze) Confirm Administered Dose 250 mcg .ROUTE .STK-MED ONE Stop: 04/20/18 07:07 Fentanyl (Sublimaze) Confirm Administered Dose 100 mcg .ROUTE .STK-MED ONE Stop: 04/20/18 09:09 Glycopyrrolate (Robinul) Confirm Administered Dose 1 mg .ROUTE .STK-MED ONE Stop: 04/20/18 07:07 Hydromorphone HCl (Dilaudid [employer] Coordinator 15 Mg In Ns 30 Ml) 0 mg IV ASDIRECTED PRN; Protocol PRN Reason: Pain Last Admin: 04/22/18 16:53 Dose: 15 mg Cefoxitin Sodium 2 gm/ Sodium (Chloride) 50 mls @ 100 mls/hr IV ONETIME ONE Stop: 04/20/18 07:44 Last Admin: 04/20/18 13:19 Dose: Not Given Dextrose/Lactated Ringer's (Dextrose 5%-Lactated Ringers) 1,000 mls @ 100 mls/ hr IV ASDIRECTED [facility] Last Admin: 04/20/18 06:39 Dose: 100 mls/hr Dextrose/Lactated Ringer's (Dextrose 5%-Lactated Ringers) 1,000 mls @ 100 mls/ hr IV ASDIRECTED [facility] Last Admin: 04/23/18 07:08 Dose: 150 mls/hr Cefazolin Sodium/Dextrose 2 gm (/ Premix) 50 mls @ 100 mls/hr IV Q8H [facility] Last Admin: 04/27/18 04:16 Dose: 100 mls/hr Dextrose/Lactated Ringer's (Dextrose 5%-Lactated Ringers) 1,000 mls @ 80 mls/ hr IV ASDIRECTED [facility] Last Admin: 04/25/18 02:25 Dose: 80 mls/hr Vancomycin HCl 1.5 gm/ Sodium (Chloride) 500 mls @ 300 mls/hr IV ONETIME ONE Stop: 04/23/18 20:39 Last Admin: 04/23/18 20:17 Dose: 300 mls/hr Sodium Chloride (Normal Saline) 100 mls @ 3 mls/sec IV ASDIRECTED [facility] Stop: 04/24/18 07:01 Last Admin: 04/24/18 10:24 Dose: 3 mls/sec Vancomycin HCl 1 gm/ Sodium (Chloride) 250 mls @ 150 mls/hr IV Q12H [facility] Last Admin: 04/27/18 09:28 Dose: 150 mls/hr Potassium Phosphate 25 mmole/ (Sodium Chloride) 258.3333 mls @ 65 mls/hr IV Q4H [facility] Stop: 04/25/18 21:59 Last Admin: 04/25/18 18:28 Dose: 65 mls/hr Potassium Acetate 20 meq/Lidocaine HCl 2 ml/ Sodium Chloride 112 mls @ 56 mls/ hr IV Q2H [facility] Stop: 04/26/18 14:59 Last Admin: 04/26/18 13:57 Dose: 56 mls/hr Iohexol (Omnipaque-300) 50 ml PO ONETIME ONE Stop: 04/24/18 07:01 Last Admin: 04/24/18 10:26 Dose: 10 ml Iopamidol (Isovue-300 (61%)) 100 ml IV ONETIME ONE Stop: 04/24/18 07:01 Last Admin: 04/24/18 10:24 Dose: 100 ml Ketamine HCl (Ketalar) 34 mg IV ASDIRECTED [facility] Lorazepam (Ativan) 0.5 - 1 mg IV Q6H PRN PRN Reason: ANEXITY Last Admin: 04/24/18 21:31 Dose: 1 mg Meropenem (Merrem) Confirm Administered Dose 500 mg .ROUTE .STK-MED ONE Stop: 04/20/18 08:39 Last Admin: 04/20/18 08:51 Dose: 500 mg Metoclopramide HCl (Reglan) 10 mg IV Q6H [facility] Last Admin: 04/26/18 02:40 Dose: 10 mg Naloxone HCl (Narcan) 0.1 mg IVPUSH Q2M PRN PRN Reason: Respiratory Distress Neostigmine Methylsulfate (Neostigmine) Confirm Administered Dose 5 mg .ROUTE .STK-MED ONE Stop: 04/20/18 07:07 Ondansetron HCl (Zofran) Confirm Administered Dose 4 mg .ROUTE .STK-MED ONE Stop: 04/20/18 07:07 Pantoprazole Sodium (Protonix Iv) 40 mg IV Q12H [facility] Last Admin: 04/25/18 00:11 Dose: 40 mg Propofol (Diprivan 20 Ml) Confirm Administered Dose 200 mg .ROUTE .STK-MED ONE Stop: 04/20/18 07:07 Rocuronium [place] (Zemuron) Confirm Administered Dose 50 mg .ROUTE .STK-MED ONE Stop: 04/20/18 07:07 Scopolamine (Transderm-Scop) 1.5 mg TRDERM Q72H [facility] Stop: 04/22/18 05:46 Last Admin: 04/20/18 05:56 Dose: 1.5 mg Succinylcholine Chloride (Quelicin) Confirm Administered Dose 200 mg .ROUTE .STK -MED ONE Stop: 04/20/18 07:07 Sugammadex Sodium (Bridion) Confirm Administered Dose 200 mg .ROUTE .STK-MED ONE Stop: 04/20/18 09:29 Vancomycin HCl (Vancomycin) Confirm Administered Dose 2,000 mg .ROUTE .STK-MED ONE Stop: 04/23/18 19:28 Last Admin: 04/23/18 20:21 Dose: Not Given - Exam General: Alert, Oriented, Cooperative, No Acute Distress Lungs: Clear to Auscultation, Normal Respiratory Effort Cardiovascular: Regular Rate, Regular Rhythm, No Murmurs Back Exam: Normal Inspection, Full Range of Motion Extremities: Other (Changes of osteoarthritis left knee) - Problem List Review Problem List Initiated/Reviewed/Updated: Yes - Plan Plan:: ASSESSMENT AND PLAN - Left knee pain and swelling - suspect trauma leading to a flare of osteoarthritis and inflammatory changes with underlying pseudogout. Cultures are pending. Swelling and warmth of the knee have improved significantly. Pain has improved significantly and he is able to bear weight without much difficulty. Positive culture results likely represent contamination rather than true infection -Continue anti-inflammatories -Discontinue antibiotic therapy -Ice every 4 hours -Pain control -Increase activity as tolerated -Physical therapy -Outpatient follow-up with Gerry Hutchison, orthopedic clinic, on Hypoactive delirium - resolved -Minimize narcotics -Increase activity as tolerated -Follow-up [place] level -Melatonin at bedtime
--- NOTE | 2018-04-27 14:00 | OR ---
DATE OF PROCEDURE: 04/20/2018 PREOPERATIVE DIAGNOSIS: Gastroesophageal reflux disease refractory to medical management. POSTOPERATIVE DIAGNOSES: 1. Large paraesophageal diaphragmatic hernia with associated gastroesophageal reflux disease refractory to medical management. 2. T-fasteners (from previous EsophyX procedure) eroded into wall of left side of the esophagus. 3. Mediastinal lipoma. 4. Esophageal perforation just proximal to esophagogastric junction during the passage of dilator. OPERATIVE PROCEDURES: Diagnostic laparoscopy with; 1. Repair of paraesophageal diaphragmatic hernia with mesh along with a concurrent Audelia fundoplication (23975). 2. Removal of T-fasteners from left lateral wall of esophagus (42517). 3. Excision of mediastinal lipoma (49987). 4. Repair of esophageal perforation (52221). ANESTHESIA: General. JEWEL INSPECTOR: Nataly Nance PA-C. INDICATION FOR PROCEDURE: This is a 67-year-old presenting with gastroesophageal reflux disease refractory to medical management. The patient is status post an EsophyX procedure 9 years ago, which resulted in several years of good symptom control. Over the last 2 years, he has had progressive problems with increasing reflux and an upper endoscopy last week confirmed ongoing, quite marked inflammation despite medical management. After discussion of the treatment options, the patient wishes to proceed with a Audelia fundoplication. Potential risks including bleeding, infection, injury to the underlying viscera, problems with fundoplication such as dysphagia, gas-bloat syndrome, and disorders of gastric emptying rate were all reviewed along with the remote possibility of cardiopulmonary, septic, or hemorrhagic complications leading to were gone over, and the patient wishes to proceed. DETAILS OF PROCEDURE: The patient was taken to the operating room and after general endotracheal anesthesia was induced, he was placed in a lithotomy position. Tovar catheter was inserted, and the abdomen was prepped and draped. At 15 cm inferior and 5 cm left of the xiphoid process, a transverse incision was made, and the peritoneal cavity entered under direct vision with an Optiview trocar and inflated to 15 mmHg pressure with CO2. Following this, 4 additional trocars were placed across the upper and mid abdomen, and general exploration was undertaken. The patient was noted to have quite a large diaphragmatic hernia. This had a significant paraesophageal component to it with prolapse of a portion of the gastric fundus, some omentum, and perigastric fat in a plane anterior and slightly to the left of the main course of the esophagus. This was then reduced and the peritoneum overlying the distal esophagus incised, along with peritoneum overlying the right and left sides of the distal esophagus. This then allowed initial dissection of the esophagus away from the crura on each side, and a posterior window was then established. The patient was noted to have some T-fasteners used for the EsophyX procedure located in the left side of the esophagus which were somewhat adherent to the diaphragm. These were impeding the establishment of adequate intraabdominal esophageal length, so these were then removed in what appeared to be an atraumatic manner. During the course of the mediastinal dissection, a lipoma was encountered, and this was removed and sent for histologic evaluation. At this point, the crural repair was accomplished with some 0 Ethibond sutures reinforced with PTFE pledgets. The size of the defect was such that it was felt best to reinforce this with a Phasix mesh. This was cut such that it would lay over the crural repair, then slightly upward along the sides of the esophagus overlying the crura. This was fixed in position with some titanium tacking screws to maintain orientation such that the side having some Seprafilm on it faced the esophagus. At this point, the upper aspect of the greater omentum was divided away from the greater curvature of the stomach with Harmonic scalpel. This dissection continued upward along the area of the short gastric vessels and included division of both the highest and posterior short gastric vessels. This then allowed passage of the fundus to the esophageal window without difficulty. The patient appeared, at that point, to have a roughly 5 cm length of intraabdominal esophagus without traction on the esophagogastric junction. At this point, a guidewire was passed per Anesthesia orally through the length of the esophagus and into the stomach. Over this then, a 54-[place] Savary dilator was passed. Unfortunately, the dilator was passing despite the wire being in place. There was a perforation of the esophagus of roughly 1 cm proximal to the esophagogastric junction. At that point, the dilator and guidewire were removed. The perforation was then sutured with 2 layers of 3-0 Vicryl stitch. This was then reinforced with some fibrin sealant as well. The fundus was then retrieved back through the retroesophageal window, and the fundoplication accomplished with being careful to make this quite floppy, but did not want to place another dilator across that area. A 2-cm three-stitch fundoplication was then accomplished. This included bites of the underlying esophagus and then the highest of the sutures were then also tacked up to the diaphragm and 1 additional suture between the left side of the fundoplication and the diaphragm was accomplished with all these stitches being with 0 Ethibond stitch reinforced with PTFE pledgets. At this point, no further problems were noted. It was felt that the Phasix mesh could be left in place as this was a biologic mesh, which would typically withstand some degree of contamination. The abdomen was irrigated with antibiotic-containing saline solution. A single Victor Hugo-Helton drain was then placed through the left lateral trocar site and positioned over the area of the fundoplication. It was notable that the fundoplication itself did cover the area of the perforation closure, in addition to fibrin sealant adding some measure of coverage of that site of the perforation closure. The trocars were then sequentially removed and the peritoneal cavity deflated. The incision was closed with some 4-0 Vicryl stitch, and the patient was taken to the recovery room in a satisfactory condition. Physician assistant spa director, Nataly Nance, played an essential role in assisting in this case, helping to position the patient, retract structures as needed, as well as suturing and cutting sutures when indicated. Her presence improved patient safety and decreased the operative time. Richard Ludwig MD /[id number]
--- NOTE | 2018-04-27 15:24 | PN ---
DATE OF SERVICE: 04/25/2018 The patient has been afebrile over the last [address] scan obtained yesterday showed no evidence of leak at the esophageal repair site. He did have quite a bit in the way of basilar atelectasis, particularly on the left, and with working on pulmonary toilet, he now has adequate oxygenation on room air. Otherwise, oral intake was quite good, over 2 L yesterday, and we will saline lock the IV. He has had some liquid stools, and we will check stool for C. difficile enterotoxin today. Potassium and phosphate are both quite low. These will be supplemented today. His knee is quite a bit better, and he still has some effusion, but he is able to stand on this and overall it looks quite a bit less uncomfortable, and depending on his overall clinical status, he may be ready for discharge home tomorrow. We might consider re-tapping the knee tomorrow prior to discharge. Richard Ludwig MD /[id number]
--- NOTE | 2018-04-27 15:30 | PN ---
DATE OF SERVICE: 04/26/2018 The patient has been afebrile with stable vital signs. Oxygenation appeared to be doing well. The left knee is strikingly better. Nothing seems to be growing out on the cultures thus far. If it did at this point, it probably would be a contaminate and the effusion is roughly status quo, but the knee is essentially nontender, and he is bearing weight. The oral intake has been good. We will make sure he is getting Ensure in between meals. He is having frequent loose bowel movements. C. difficile enterotoxin level was negative. We will add to the Fiber Choice, some probiotic capsules today. Potassium is marginally low, and we will give him some KCl today as well. He will likely be ready for discharge home tomorrow. Richard Ludwig MD /[id number]
--- NOTE | 2018-04-29 09:18 | DISCH ---
ADMISSION DIAGNOSES: 1. Gastroesophageal reflux disease, refractory to medical management. 2. Bipolar II disorder. 3. Drug-induced parkinsonism. 4. Degenerative joint disease. DISCHARGE DIAGNOSES: Diagnostic laparoscopy with repair of paraesophageal diaphragmatic hernia with mesh along with concurrent Audelia fundoplication, removal of T-fasteners from left lateral wall of esophagus, excision of mediastinal lipoma, and repair of esophageal perforation. Surgeon: Richard Ludwig, 04/27/2018. POSTOPERATIVE DIAGNOSES: 1. Large paraesophageal diaphragmatic hernia with associated gastroesophageal reflux disease refractory to medical management. 2. T-fasteners from previous EsophyX procedure (eroded into wall of left side of the esophagus). 3. Mediastinal lipoma. 4. Esophageal perforation just proximal to the esophagogastric junction during the passage of dilator. HISTORY: Bobby Morris is a 67-year-old male with gastroesophageal reflux disease refractory to medical management. He had an EsophyX procedure 9 years ago where he was symptom free of gastroesophageal reflux disease until the previous 2 years where he had progressive problems with increasing reflux and an EGD confirmed marked inflammation last week. After preoperative evaluation and discussion of possible risks and possible complications, he wished to proceed with surgical procedure. HOSPITAL COURSE: Bobby had his surgery on 04/20/2018. Surgeon is Richard Ludwig MD. On postop day 1, he continued with sips of clear liquid. His Tovar catheter was discontinued. He received dietary consultation. On 04/22/2018, he was started on Ensure oral supplements, a clear liquid diet. His pain was controlled. He also developed left knee pain and swelling where he fell a couple of days prior to coming in for surgery and now he is having quite a bit of pain and swelling in that left knee. He did have an orthopedic consult, which he had 100 mL of fluid drained and was sent for culture and sensitivity. On 04/23/2018, he was started on a full liquid diet, nothing thicker than water, was given protein supplements, and changed to oral pain medications. On 04/24/2018, he had a temperature max of 101.2. Blood cultures and chest x-ray were done and were negative. Results of culture and sensitivity of the knee fluid remains. He did have a CT scan of chest, abdomen and pelvis, which was negative. Respiratory Therapy was involved to help with pulmonary function. On 04/25/2018, he was afebrile over 24 hours. Oral intake was good. He started having liquid stools. Stool for Clostridium difficile was collected and was negative. On 04/26/2018, he remained to be afebrile. Oxygenation was good. Left knee improved. He was able to bear weight and walk. He was having loose stools, so Fiber Choice and probiotic capsules were added. He also was given potassium replacement. On 04/27/2018, his culture returned for the knee fluid. It showed Roseomonas gilardii, which after consultation with Gerry Hutchison, Orthopedic CHARO and Otoniel Ward MD, this was thought to be contaminant in light of the knee improving and able to walk on it. Bobby was able to be discharged to home. He had an adequate oral intake. Pain was controlled and he received adequate dietary instructions. PHYSICAL EXAMINATION: GENERAL: Bobby Morris is a 67-year-old male, height is 5 feet 8 inches, weight is 160 pounds. VITAL SIGNS: TPR 98.2, 72, 15, blood pressure 106/79. HEENT: Negative. NECK: Supple. HEART: Regular rate and rhythm. LUNGS: Clear. ABDOMEN: Soft, flat, minimally tender. Sutures intact. MEGAN drain had been removed, 4x4s over MEGAN drain site. Abdominal binder has been on. EXTREMITIES: Without peripheral edema. Left knee - some fluid is palpated but much improved. NEUROLOGIC: Intact. SKIN: Without rash. PSYCHIATRIC: Mood and affect appropriate. No confusion noted. DISPOSITION: Discharge to home. CONDITION: Stable and improving. FOLLOWUP: 1. Followup appointment with Gerry Hutchison PA-C on 04/30/2018 at 11:00 a.m. 2. Richard Ludwig MD, on 05/06/2018 at 10:00 a.m. HOME MEDICATIONS: Requip/ropinirole 0.5 mg p.o. at bedtime, #34, restless legs. He is to resume alpha lipoic acid 600 mg daily; alprazolam 0.5 to 1 mg t.i.d.; bupropion 300 mg p.o. daily; vitamin D3 1000 units p.o. b.i.d.; Cataflam 50 mg oral b.i.d.; Inulin Fiber Choice 4.5 g p.o. b.i.d.; iron 65 mg oral daily; Culturelle 2 capsules p.o. b.i.d.; lithium carbonate 900 mg p.o. at bedtime; Zofran 4 mg q.8 h. p.r.n. nausea; Protonix 40 mg p.o. daily; MiraLax 17 g p.o. daily; ranitidine 150 mg p.o. b.i.d.; sertraline 50 mg p.o. daily; sildenafil citrate 100 mg p.o. daily p.r.n.; Imitrex 100 mg p.o. p.r.n. as directed for migraine headaches; and tamsulosin HCL/Flomax 0.4 mg p.o. daily. DIET: Full liquid diet with nothing thicker than milk for 2 weeks. ACTIVITY: No lifting greater than 10 pounds for 2 weeks. Shower/bathing: May shower. Wound incision care: Keep site clean and dry. Wear abdominal binder for 2 weeks and then as tolerated. Notify provider if any fever, increased pain, nausea, or vomiting. SPECIAL INSTRUCTIONS: Use incentive spirometer 10 times every hour while awake.
== END 2018-04-27 13:45 | disposition home or self-care (01) | DRG 327 ==
LOC: JP.SDS 05:32 → JP.SDSSCHI 05:32 → EDSTATUS 08:45 → JP.MS 09:25
PROVIDERS: ADMIT Surgery; ATTEND Surgery
PROC: 0DV44ZZ Restriction of Esophagogastric Junction, Percutaneous Endoscopic Approach (ICD-10-PCS; principal; 2018-04-20)
PROC: 0BUT4JZ Supplement Diaphragm with Synthetic Substitute, Percutaneous Endoscopic Approach (ICD-10-PCS; 2018-04-20)
PROC: 0WBC4ZZ Excision of Mediastinum, Percutaneous Endoscopic Approach (ICD-10-PCS; 2018-04-20)
PROC: 0DQ34ZZ Repair Lower Esophagus, Percutaneous Endoscopic Approach (ICD-10-PCS; 2018-04-20)
PROC: 0DP Gastrointestinal System, Removal (ICD-10-PCS; 2018-04-20)
PROC: 0S9D3ZX Drainage of Left Knee Joint, Percutaneous Approach, Diagnostic (ICD-10-PCS; 2018-04-23)
DX: K21.9 Gastro-esophageal reflux disease without esophagitis (principal); K91.71 Accidental puncture and laceration of a digestive system organ or structure during a digestive system procedure; F05 Delirium due to known physiological condition; G21.19 Other drug induced secondary parkinsonism; K44.9 Diaphragmatic hernia without obstruction or gangrene; D17.1 Benign lipomatous neoplasm of skin and subcutaneous tissue of trunk; G25.81 Restless legs syndrome; R19.7 Diarrhea, unspecified; M17.12 Unilateral primary osteoarthritis, left knee; F41.9 Anxiety disorder, unspecified; W10.8XXA Fall (on) (from) other stairs and steps, initial encounter; E87.6 Hypokalemia; K22.3 Perforation of esophagus; M25.562 Pain in left knee; M25.462 Effusion, left knee; E83.39 Other disorders of phosphorus metabolism; M11.262 Other chondrocalcinosis, left knee; F31.9 Bipolar disorder, unspecified; Y83.8 Other surgical procedures as the cause of abnormal reaction of the patient, or of later complication, without mention of misadventure at the time of the procedure; Y92.234 Operating room of hospital as the place of occurrence of the external cause
CPT/HCPCS: 36415; 71046; 71046-26; 71260; 71260-26; 73562-26-LT; 73562-LT; 73700-LT; 74177; 74177-26; 80048; 80053; 80178; 80202; 81001; 82728; 83735; 84100; 85025; 85027; 87040; 87070; 87075; 87077; 87205; 87493; 88300; 88304; 89050; 89060; 93005; 94667; 94668; 94762; 97110-GP; 97116-GP; 97162-GP; 97530-GP; 97535-GP; A9270-GY; C1781; C9113; C9399; J0171; J0330; J0690; J0694; J1100; J1170; J2060; J2185; J2405; J2704; J2710; J2765; J2795; J3010; J3370; J3490; J7030; J7040; J7042; J7050; Q9967

== ENCOUNTER 2018-11-22 08:03 | Inpatient (IN) | payer MEDICARE, BC ==
--- NOTE | 2018-11-22 08:41 | EDM.PDOC ---
<OfficerChapin - Last Filed: 11/22/18 12:49> ED HPI GENERAL MEDICAL PROBLEM - General Chief Complaint: General Stated Complaint: [facility] Time Seen by Provider: 11/22/18 08:30 - Related Data Allergies Allergy/AdvReac Type Severity Reaction Status Date / Time No Known Allergies Allergy Verified 11/22/18 08:15 Home Meds: Home Meds ALPRAZolam [Xanax] 0.5 - 1 mg PO TID PRN 07/02/13 [History] Ondansetron [Zofran] 4 mg PO Q8H PRN 07/02/13 [History] [place] Carbonate [Eskalith CR] 900 mg PO BEDTIME 04/10/18 [History] Sildenafil Citrate [Sildenafil] 100 mg PO DAILY PRN 04/14/18 [History] Polyethylene Glycol 3350 [MiraLAX] 17 gm PO DAILY 04/23/18 [History] Inulin [Fiber Choice] 4.5 gm PO BID tab.chew 04/27/18 [Rx] rOPINIRole [Requip] 0.5 mg PO BEDTIME #30 tablet 04/27/18 [Rx] Cholecalciferol (Vitamin D3) [Vitamin D3] 1 cap PO DAILY 11/22/18 [History] Cyanocobalamin (Vitamin B-12) [Vitamin B-12] 1 tab PO DAILY 11/22/18 [History] Ferrous Sulfate 325 mg PO DAILY 11/22/18 [History] Lactobacillus Rhamnosus GG [Culturelle] 2 cap PO DAILY 11/22/18 [History] Mirtazapine 7.5 mg PO BEDTIME 11/22/18 [History] Pantoprazole Sodium [Protonix] 40 mg PO BEDTIME 11/22/18 [History] Sertraline HCl 50 mg PO DAILY 11/22/18 [History] Sulfamethoxazole/Trimethoprim [Bactrim Ds Tablet] 1 each PO BID #84 tablet 11/22 [Rx] buPROPion [buPROPion XL] 300 mg PO DAILY 11/22/18 [History] ED EXAM, GENERAL - Physical Exam Free Text/Narrative:: Agree with exam below Rectal (Males) Exam: Normal Rectal Tone, Tenderness (Prostate). No: Fecal Impaction Course - Vital Signs Last Recorded V/S: Last Vital Signs Temp 36.6 C 11/22/18 08:12 Pulse 70 11/22/18 10:05 Resp 12 11/22/18 09:35 BP 122/71 11/22/18 10:35 Pulse Ox 98 11/22/18 10:05 - Orders/Labs/Meds Orders: Active Orders 24 hr Category Date Time Status Bladder Scan [RC] ASDIRECTED Care 11/22/18 12:13 Active Peripheral IV Care [RC] . DIRECTED Care 11/22/18 09:28 Active CULTURE BLOOD [BC] Routine Lab 11/22/18 08:35 Received CULTURE BLOOD [BC] Stat Lab 11/22/18 08:30 Received CULTURE URINE [RM] Stat Lab 11/22/18 09:00 Received LITHIUM (ESKALITH(R)), SERUM Stat Lab 11/22/18 08:30 Received Lactated Ringers [Ringers, Lactated] 1,000 ml Med 11/22/18 09:45 Active IV ASDIRECTED Lactated Ringers [Ringers, Lactated] 500 ml Med 11/22/18 09:45 Active IV .BOLUS Sodium Chloride 0.9% [Saline Flush] Med 11/22/18 09:23 Active 10 ml FLUSH ASDIRECTED PRN Peripheral IV Insertion Adult [OM.PC] Routine Oth 11/22/18 09:23 Ordered Medication Orders Lactated Ringer's (Ringers, Lactated) 500 mls @ 999 mls/hr IV .BOLUS ELSA Last Admin: 11/22/18 09:45 Dose: 999 mls/hr Lactated Ringer's (Ringers, Lactated) 1,000 mls @ 125 mls/hr IV ASDIRECTED ELSA Last Admin: 11/22/18 10:21 Dose: 125 mls/hr Sodium Chloride (Saline Flush) 10 ml FLUSH ASDIRECTED PRN PRN Reason: Keep Vein Open Last Admin: 11/22/18 09:46 Dose: 10 ml Labs: Laboratory Tests 11/22/18 11/22/18 11/22/18 Range/Units 08:41 08:41 08:41 WBC 14.9 H (4.5-11.0) K/uL RBC 3.61 L (4.30-5.90) M/uL Hgb 12.2 D (12.0-15.0) g/dL Hct 35.8 L (40.0-54.0) % MCV 99 H (80-98) fL MCH 34 H (27-31) pg MCHC 34 (32-36) % Plt Count 202 (150-400) K/uL Add Manual Diff Yes Neutrophils % (Manual) Not Reportable Band Neutrophils % 10 (5-11) % Lymphocytes % (Manual) 77 H (24-44) % Monocytes % (Manual) 5 (2-6) % Eosinophils % (Manual) 5 H (2-4) % Basophils % (Manual) 3 H (0-1) % Sodium 136 L (140-148) mmol/L Potassium 4.0 (3.6-5.2) mmol/L Chloride 100 (100-108) mmol/L Carbon Dioxide 26 (21-32) mmol/L Anion Gap 14.0 (5.0-14.0) mmol/L BUN 15 D (7-18) mg/dL Creatinine 1.3 (0.8-1.3) mg/dL Est Cr Clr Drug Dosing 52.34 mL/min Estimated GFR (MDRD) 55 L (>60) Glucose 100 (74-106) mg/dL Lactic Acid 2.4 H (0.4-2.0) mmol/L Calcium 9.9 (8.5-10.1) mg/dL Total Bilirubin 0.4 (0.2-1.0) mg/dL AST 33 (15-37) U/L ALT 26 (12-78) U/L Alkaline Phosphatase 91 (46-116) U/L C-Reactive Protein (0.0-0.3) mg/dL Total Protein 7.2 (6.4-8.2) g/dL Albumin 3.5 (3.4-5.0) g/dL Globulin 3.7 H (2.3-3.5) g/dL Albumin/Globulin Ratio 1.0 L (1.2-2.2) Urine Color Urine Appearance Urine pH (4.5-8.0) Ur Specific [place] (1.008-1.030) Urine Protein (NEGATIVE) mg/dL Urine Glucose (UA) (NEGATIVE) mg/dL Urine Ketones (NEGATIVE) mg/dL Urine Occult Blood (NEGATIVE) Urine Nitrite (NEGAITVE) Urine Bilirubin (NEGATIVE) Urine Urobilinogen (NORMAL) mg/dL Ur Leukocyte Esterase (NEGATIVE) Urine RBC (0-5) Urine WBC (0-5) Ur Epithelial Cells Amorphous Sediment Urine Bacteria Urine Mucus 11/22/18 11/22/18 Range/Units 08:49 09:00 WBC (4.5-11.0) K/uL RBC (4.30-5.90) M/uL Hgb (12.0-15.0) g/dL Hct (40.0-54.0) % MCV (80-98) fL MCH (27-31) pg MCHC (32-36) % Plt Count (150-400) K/uL Add Manual Diff Neutrophils % (Manual) Band Neutrophils % (5-11) % Lymphocytes % (Manual) (24-44) % Monocytes % (Manual) (2-6) % Eosinophils % (Manual) (2-4) % Basophils % (Manual) (0-1) % Sodium (140-148) mmol/L Potassium (3.6-5.2) mmol/L Chloride (100-108) mmol/L Carbon Dioxide (21-32) mmol/L Anion Gap (5.0-14.0) mmol/L BUN (7-18) mg/dL Creatinine (0.8-1.3) mg/dL Est Cr Clr Drug Dosing mL/min Estimated GFR (MDRD) (>60) Glucose (74-106) mg/dL Lactic Acid (0.4-2.0) mmol/L Calcium (8.5-10.1) mg/dL Total Bilirubin (0.2-1.0) mg/dL AST (15-37) U/L ALT (12-78) U/L Alkaline Phosphatase (46-116) U/L C-Reactive Protein 2.87 H (0.0-0.3) mg/dL Total Protein (6.4-8.2) g/dL Albumin (3.4-5.0) g/dL Globulin (2.3-3.5) g/dL Albumin/Globulin Ratio (1.2-2.2) Urine Color Yellow Urine Appearance Clear Urine pH 7.0 (4.5-8.0) Ur Specific [place] 1.005 L (1.008-1.030) Urine Protein Trace (NEGATIVE) mg/dL Urine Glucose (UA) Negative (NEGATIVE) mg/dL Urine Ketones Negative (NEGATIVE) mg/dL Urine Occult Blood Negative (NEGATIVE) Urine Nitrite Negative (NEGAITVE) Urine Bilirubin Negative (NEGATIVE) Urine Urobilinogen Normal (NORMAL) mg/dL Ur Leukocyte Esterase Negative (NEGATIVE) Urine RBC Not seen (0-5) Urine WBC Not seen (0-5) Ur Epithelial Cells Not seen Amorphous Sediment Rare Urine Bacteria Not seen Urine Mucus Not seen Meds: Medications Generic Name Dose Route Start Last Admin Trade Name Freq PRN Reason Stop Dose Admin Lactated Ringer's 500 mls @ 999 mls/hr 11/22/18 09:45 11/22/18 09:45 Ringers, Lactated IV 999 mls/hr .BOLUS ELSA Administration Lactated Ringer's 1,000 mls @ 125 mls/hr 11/22/18 09:45 11/22/18 10:21 Ringers, Lactated IV 125 mls/hr ASDIRECTED ELSA Administration Sodium Chloride 10 ml 11/22/18 09:23 11/22/18 09:46 Saline Flush FLUSH 10 ml ASDIRECTED PRN Administration Keep Vein Open Departure - Departure Time of Disposition: 12:47 Disposition: Home, Self-Care 01 Condition: Fair Clinical Impression: Prostatitis Qualifiers: Prostatitis type: acute Qualified Code(s): N41.0 - Acute prostatitis - Discharge Information Prescriptions: Sulfamethoxazole/Trimethoprim [Bactrim Ds Tablet] 1 each PO BID #84 tablet Referrals: Bobby Archuleta MD [Primary Care Provider] - Forms: ED Department Discharge Additional Instructions: Take full course of antibiotics, Tylenol or Motrin as needed for fever control, Please followup with your primary care provider in 5-7 days if not better, please call return to the emergency department with worsening of symptoms., Medications have been faxed to [facility] pharmacy - My Orders Last 24 Hours: My Active Orders 11/22/18 08:30 CULTURE BLOOD [BC] Stat LITHIUM (ESKALITH(R)), SERUM Stat 11/22/18 09:00 CULTURE URINE [RM] Stat 11/22/18 09:23 Sodium Chloride 0.9% [Saline Flush] 10 ml FLUSH ASDIRECTED PRN Peripheral IV Insertion Adult [OM.PC] Routine 11/22/18 09:28 Peripheral IV Care [RC] . DIRECTED 11/22/18 09:45 Lactated Ringers [Ringers, Lactated] 1,000 ml IV ASDIRECTED Lactated Ringers [Ringers, Lactated] 500 ml IV .BOLUS - Assessment/Plan Last 24 Hours: My Active Orders 11/22/18 08:30 CULTURE BLOOD [BC] Stat LITHIUM (ESKALITH(R)), SERUM Stat 11/22/18 09:00 CULTURE URINE [RM] Stat 11/22/18 09:23 Sodium Chloride 0.9% [Saline Flush] 10 ml FLUSH ASDIRECTED PRN Peripheral IV Insertion Adult [OM.PC] Routine 11/22/18 09:28 Peripheral IV Care [RC] . DIRECTED 11/22/18 09:45 Lactated Ringers [Ringers, Lactated] 1,000 ml IV ASDIRECTED Lactated Ringers [Ringers, Lactated] 500 ml IV .BOLUS Plan: Assessment Acuity = acute Site and laterality = prostatitis Etiology = probable bacterial cause Manifestations = fever, urinary incontinence Location of injury = Home Lab values = WBC elevated 14.9 consistent leukocytosis, lactic acid normal at 2.4, CRP slightly elevated 2.87 urinalysis is negative chest x-ray shows no acute process. Plan Elected treat Bactrim DS 1 tab by mouth twice a day 28 days, follow up with primary care 5-7 days if no improvement This note was dictated using [employer] voice recognition software please call with any questions on syntax or grammar. <Sammie Guzman - Last Filed: 11/22/18 12:52> ED HPI GENERAL MEDICAL PROBLEM - General Source of Information: Reports: Patient, Family History Limitations: Reports: No Limitations - History of Present Illness INITIAL COMMENTS - FREE TEXT/NARRATIVE: Presents by EMS because of 's inability to get him into the car due to weak legs. Onset Date: 11/21/18 Location: Reports: Generalized (had temp last night, did not sleep all night due to exacerbation of restless leg syndrome) Associated Symptoms: Reports: Fever/Chills (101 fever last night, not treated) Past Medical History HEENT History: Reports: Hard of Hearing, Impaired Vision Gastrointestinal History: Reports: Cholelithiasis, GERD, Hiatal Hernia Genitourinary History: Reports: Prostate Disorder Musculoskeletal History: Reports: Back Pain, Chronic, Neck Pain, Chronic Neurological History: Reports: Migraines, Neuropathy, Peripheral, Parkinson's Psychiatric History: Reports: Anxiety, Bipolar, Depression Dermatologic History: Reports: None - Infectious Disease History Infectious Disease History: Reports: Chicken Pox - Past Surgical History GI Surgical History: Reports: Cholecystectomy, Colonoscopy, EGD, [place] Fundoplication Musculoskeletal Surgical History: Reports: Arthroscopic Knee, Other (See Below) Other Musculoskeletal Surgeries/Procedures:: acl surgery, cartilage surgery in lower legs bilateral Social & Family History - Family History Family Medical History: Noncontributory - Tobacco Use Smoking Status *Q: Never Smoker - Caffeine Use Caffeine Use: Reports: Coffee - Recreational Drug Use Recreational Drug Use: No ED ROS GENERAL - Review of Systems Review Of Systems: See Below HEENT: Reports: No Symptoms Respiratory: Reports: No Symptoms Cardiovascular: Reports: No Symptoms Endocrine: Reports: No Symptoms GI/Abdominal: Reports: No Symptoms : Reports: Incontinence (for past two days patient states seems to have no control of urination. Feels urge and then is unable to hold void like usual. ) Musculoskeletal: Reports: No Symptoms Skin: Reports: No Symptoms Neurological: Reports: Other ( states that he was normal yesterday, as was in [place] [employer] car shop. Used just cane and support of to ambulate. Last night states legs were hyper spastic, not normal restless leg. ) Psychiatric: Reports: No Symptoms ED EXAM, GENERAL - Physical Exam Exam: See Below Exam Limited By: No Limitations (slow and deliberate in his speech, but able to understand and responds appropriately.) General Appearance: Alert, WD/WN, Mild Distress (lethargic and doses between questions) Eye Exam: Bilateral Eye: EOMI Ears: Hearing Grossly Normal (usually wears hearing aids, not wearing now. Was fitted with hearing aid on Friday that caused bleeding to left ear. Dried blood seen now. Not able to visualize TM. ) Ear Exam: Right Ear: TM normal, Left Ear: Bleeding Nose: Normal Inspection, Normal Mucosa, No Blood Throat/Mouth: Normal Inspection, Normal Lips, Normal Teeth, Normal Gums, Normal Oropharynx, Normal Voice (slow speech), No Airway Compromise Head: Atraumatic, Normocephalic Neck: Normal Inspection, Supple, Non-Tender, Other (range of motion per usual, states limited due to old injury. ) Respiratory/Chest: No Respiratory Distress, Lungs Clear, Normal Breath Sounds, No Accessory Muscle Use, Chest Non-Tender Cardiovascular: Normal Peripheral Pulses, Regular Rate, Rhythm, No Edema, No Gallop, No JVD, No Murmur, No Rub Peripheral Pulses: 2+: Posterior Tibial (L), Posterior Tibial (R) GI/Abdominal: Normal Bowel Sounds, Soft, Non-Tender, No Organomegaly, No Distention, No Abnormal Bruit, No Mass, Pelvis Stable Back Exam: Normal Inspection, Full Range of Motion (although weakened state), Vertebral Tenderness Extremities: Normal Inspection, Normal Range of Motion, Non-Tender, No Pedal Edema, Normal Capillary Refill Neurological: Alert, Oriented, CN II-XII Intact, Normal Cognition (unable to support himself erect. Able to sit for me to listen to lung amato, although got progressively weak and had to lay down quickly. ) Psychiatric: Normal Affect, Normal Mood (for him at this time. ) Skin Exam: Warm, Dry, Intact, Normal Color, No Rash Lymphatic: No Adenopathy Course - Vital Signs Text/Narrative:: Presents to ED per ambulance because states she could not get him to the car by herself for care in the ED. states that patient has been feeling well lately and yesterday went to [place] to car shop with her and daughter. Patient states that has had two day history of total bladder incontinence, feels the urge to urinate but not able to stop flow of urine once it presents. Has total bowel control. states had similar situation on vacation in September with leg weakness but not as severe. She shares that he was started on Requip for restless leg syndrome which she feels has worsened his symptoms to the point of outright spastic leg movements. She noted these yesterday while in [place]. - Orders/Labs/Meds Orders: Active Orders 24 hr Category Date Time Status Bladder Scan [RC] ASDIRECTED Care 11/22/18 12:13 Active Peripheral IV Care [RC] . DIRECTED Care 11/22/18 09:28 Active CULTURE BLOOD [BC] Routine Lab 11/22/18 08:35 Received CULTURE BLOOD [BC] Stat Lab 11/22/18 08:30 Received CULTURE URINE [RM] Stat Lab 11/22/18 09:00 Received LITHIUM (ESKALITH(R)), SERUM Stat Lab 11/22/18 08:30 Received Lactated Ringers [Ringers, Lactated] 1,000 ml Med 11/22/18 09:45 Active IV ASDIRECTED Lactated Ringers [Ringers, Lactated] 500 ml Med 11/22/18 09:45 Active IV .BOLUS Sodium Chloride 0.9% [Saline Flush] Med 11/22/18 09:23 Active 10 ml FLUSH ASDIRECTED PRN Peripheral IV Insertion Adult [OM.PC] Routine Oth 11/22/18 09:23 Ordered Medication Orders Lactated Ringer's (Ringers, Lactated) 500 mls @ 999 mls/hr IV .BOLUS ELSA Last Admin: 11/22/18 09:45 Dose: 999 mls/hr Lactated Ringer's (Ringers, Lactated) 1,000 mls @ 125 mls/hr IV ASDIRECTED ELSA Last Admin: 11/22/18 10:21 Dose: 125 mls/hr Sodium Chloride (Saline Flush) 10 ml FLUSH ASDIRECTED PRN PRN Reason: Keep Vein Open Last Admin: 11/22/18 09:46 Dose: 10 ml Labs: Laboratory Tests 11/22/18 11/22/18 11/22/18 Range/Units 08:41 08:41 08:41 WBC 14.9 H (4.5-11.0) K/uL RBC 3.61 L (4.30-5.90) M/uL Hgb 12.2 D (12.0-15.0) g/dL Hct 35.8 L (40.0-54.0) % MCV 99 H (80-98) fL MCH 34 H (27-31) pg MCHC 34 (32-36) % Plt Count 202 (150-400) K/uL Add Manual Diff Yes Neutrophils % (Manual) Not Reportable Band Neutrophils % 10 (5-11) % Lymphocytes % (Manual) 77 H (24-44) % Monocytes % (Manual) 5 (2-6) % Eosinophils % (Manual) 5 H (2-4) % Basophils % (Manual) 3 H (0-1) % Sodium 136 L (140-148) mmol/L Potassium 4.0 (3.6-5.2) mmol/L Chloride 100 (100-108) mmol/L Carbon Dioxide 26 (21-32) mmol/L Anion Gap 14.0 (5.0-14.0) mmol/L BUN 15 D (7-18) mg/dL Creatinine 1.3 (0.8-1.3) mg/dL Est Cr Clr Drug Dosing 52.34 mL/min Estimated GFR (MDRD) 55 L (>60) Glucose 100 (74-106) mg/dL Lactic Acid 2.4 H (0.4-2.0) mmol/L Calcium 9.9 (8.5-10.1) mg/dL Total Bilirubin 0.4 (0.2-1.0) mg/dL AST 33 (15-37) U/L ALT 26 (12-78) U/L Alkaline Phosphatase 91 (46-116) U/L C-Reactive Protein (0.0-0.3) mg/dL Total Protein 7.2 (6.4-8.2) g/dL Albumin 3.5 (3.4-5.0) g/dL Globulin 3.7 H (2.3-3.5) g/dL Albumin/Globulin Ratio 1.0 L (1.2-2.2) Urine Color Urine Appearance Urine pH (4.5-8.0) Ur Specific [place] (1.008-1.030) Urine Protein (NEGATIVE) mg/dL Urine Glucose (UA) (NEGATIVE) mg/dL Urine Ketones (NEGATIVE) mg/dL Urine Occult Blood (NEGATIVE) Urine Nitrite (NEGAITVE) Urine Bilirubin (NEGATIVE) Urine Urobilinogen (NORMAL) mg/dL Ur Leukocyte Esterase (NEGATIVE) Urine RBC (0-5) Urine WBC (0-5) Ur Epithelial Cells Amorphous Sediment Urine Bacteria Urine Mucus 11/22/18 11/22/18 Range/Units 08:49 09:00 WBC (4.5-11.0) K/uL RBC (4.30-5.90) M/uL Hgb (12.0-15.0) g/dL Hct (40.0-54.0) % MCV (80-98) fL MCH (27-31) pg MCHC (32-36) % Plt Count (150-400) K/uL Add Manual Diff Neutrophils % (Manual) Band Neutrophils % (5-11) % Lymphocytes % (Manual) (24-44) % Monocytes % (Manual) (2-6) % Eosinophils % (Manual) (2-4) % Basophils % (Manual) (0-1) % Sodium (140-148) mmol/L Potassium (3.6-5.2) mmol/L Chloride (100-108) mmol/L Carbon Dioxide (21-32) mmol/L Anion Gap (5.0-14.0) mmol/L BUN (7-18) mg/dL Creatinine (0.8-1.3) mg/dL Est Cr Clr Drug Dosing mL/min Estimated GFR (MDRD) (>60) Glucose (74-106) mg/dL Lactic Acid (0.4-2.0) mmol/L Calcium (8.5-10.1) mg/dL Total Bilirubin (0.2-1.0) mg/dL AST (15-37) U/L ALT (12-78) U/L Alkaline Phosphatase (46-116) U/L C-Reactive Protein 2.87 H (0.0-0.3) mg/dL Total Protein (6.4-8.2) g/dL Albumin (3.4-5.0) g/dL Globulin (2.3-3.5) g/dL Albumin/Globulin Ratio (1.2-2.2) Urine Color Yellow Urine Appearance Clear Urine pH 7.0 (4.5-8.0) Ur Specific [place] 1.005 L (1.008-1.030) Urine Protein Trace (NEGATIVE) mg/dL Urine Glucose (UA) Negative (NEGATIVE) mg/dL Urine Ketones Negative (NEGATIVE) mg/dL Urine Occult Blood Negative (NEGATIVE) Urine Nitrite Negative (NEGAITVE) Urine Bilirubin Negative (NEGATIVE) Urine Urobilinogen Normal (NORMAL) mg/dL Ur Leukocyte Esterase Negative (NEGATIVE) Urine RBC Not seen (0-5) Urine WBC Not seen (0-5) Ur Epithelial Cells Not seen Amorphous Sediment Rare Urine Bacteria Not seen Urine Mucus Not seen Meds: Medications Generic Name Dose Route Start Last Admin Trade Name Freq PRN Reason Stop Dose Admin Lactated Ringer's 500 mls @ 999 mls/hr 11/22/18 09:45 11/22/18 09:45 Ringers, Lactated IV 999 mls/hr .BOLUS ELSA Administration Lactated Ringer's 1,000 mls @ 125 mls/hr 11/22/18 09:45 11/22/18 10:21 Ringers, Lactated IV 125 mls/hr ASDIRECTED ELSA Administration Sodium Chloride 10 ml 11/22/18 09:23 11/22/18 09:46 Saline Flush FLUSH 10 ml ASDIRECTED PRN Administration Keep Vein Open - Re-Assessments/Exams Free Text/Narrative Re-Assessment/Exam: 11/22/18 10:37 Explained results of labs so far. Will get chest xray to determine infection source. - My Orders Last 24 Hours: My Active Orders 11/22/18 08:30 CULTURE BLOOD [BC] Stat LITHIUM (ESKALITH(R)), SERUM Stat 11/22/18 09:00 CULTURE URINE [RM] Stat 11/22/18 09:23 Sodium Chloride 0.9% [Saline Flush] 10 ml FLUSH ASDIRECTED PRN Peripheral IV Insertion Adult [OM.PC] Routine 11/22/18 09:28 Peripheral IV Care [RC] . DIRECTED 11/22/18 09:45 Lactated Ringers [Ringers, Lactated] 1,000 ml IV ASDIRECTED Lactated Ringers [Ringers, Lactated] 500 ml IV .BOLUS - Assessment/Plan Last 24 Hours: My Active Orders 11/22/18 08:30 CULTURE BLOOD [BC] Stat LITHIUM (ESKALITH(R)), SERUM Stat 11/22/18 09:00 CULTURE URINE [RM] Stat 11/22/18 09:23 Sodium Chloride 0.9% [Saline Flush] 10 ml FLUSH ASDIRECTED PRN Peripheral IV Insertion Adult [OM.PC] Routine 11/22/18 09:28 Peripheral IV Care [RC] . DIRECTED 11/22/18 09:45 Lactated Ringers [Ringers, Lactated] 1,000 ml IV ASDIRECTED Lactated Ringers [Ringers, Lactated] 500 ml IV .BOLUS
[2018-11-22] MEDS ORDERED: Sodium Chloride 0.9% 10 ML Syringe FLUSH PRN (09:23)
[2018-11-22] MEDS ORDERED: Lactated Ringers 500 ML IV SCH (09:45)
[2018-11-22] MEDS ORDERED: Lactated Ringers 1,000 ML IV SCH (09:45)
--- NOTE | 2018-11-22 12:14 | CRLCR ---
INDICATION: Fever. TECHNIQUE: PA and lateral chest x-ray. COMPARISON: Chest x-ray the 06/23/2009. FINDINGS: Heart size normal. Minimal peribronchial cuffing in the right suprahilar region could indicate mild bronchial inflammation. No focal infiltrate or consolidation in either lung. Mild pectus excavatum deformity. Slight atelectasis in the left lung base medially. Chest otherwise negative. Dictated by Wiley Silva MD @ Nov 22 2018 12:13PM Signed by Dr. Wiley Silva @ Nov 22 2018 12:13PM
--- NOTE | 2018-11-22 15:01 | PCM.HP ---
H&P History of Present Illness - General Date of Service: 11/22/18 Admit Problem/Dx: Admission Diagnosis/Problem Admission Diagnosis/Problem Weakness Source of Information: Patient, Family, Provider History Limitations: Reports: No Limitations - History of Present Illness Initial Comments - Free Text/Narative: Alfredo presented to the emergency room today with increased urinary frequency and urgency as well as generalized weakness. He reports 2 days of progressive symptoms. He first noticed these about 2 days ago with extreme urinary urgency and need to avoid very quickly thereafter. He is able to pass small quantities of urine each time but does not empty his bladder. He has also had some dysuria though this has been relatively mild. He has not noticed change in the color of his urine. No complaints of nausea, vomiting or abdominal pain. No complaints of shortness of breath. He does note generalized weakness which has been progressive over the past 24 hours. He is very unsteady on his feet and requires a fair amount of assistance from one person to stand and ambulate. His restless legs have been much worse than usual and he was unable to sleep last night because of constant leg movement. No complaints of back pain. Bowels have been moving normally. He has not had any fevers that he is aware of. He does note that his left ear has been bleeding some after new hearing aids were fit and had difficulty removing one of them. Workup in the emergency room revealed evidence for prostatitis as well as mild leukocytosis. There is no evidence for sepsis. Initially the plan was for the patient to go home but he was too weak to ambulate safely so he will be admitted for observation. - Related Data Allergies/Adverse Reactions: Allergies Allergy/AdvReac Type Severity Reaction Status Date / Time No Known Allergies Allergy Verified 11/22/18 08:15 Home Medications: Home Meds ALPRAZolam [Xanax] 0.5 - 1 mg PO TID PRN 07/02/13 [History] Ondansetron [Zofran] 4 mg PO Q8H PRN 07/02/13 [History] [place] Carbonate [Eskalith CR] 900 mg PO BEDTIME 04/10/18 [History] Sildenafil Citrate [Sildenafil] 100 mg PO DAILY PRN 04/14/18 [History] Polyethylene Glycol 3350 [MiraLAX] 17 gm PO DAILY 04/23/18 [History] Inulin [Fiber Choice] 4.5 gm PO BID tab.chew 04/27/18 [Rx] Cholecalciferol (Vitamin D3) [Vitamin D3] 1 cap PO DAILY 11/22/18 [History] Cyanocobalamin (Vitamin B-12) [Vitamin B-12] 1 tab PO DAILY 11/22/18 [History] Ferrous Sulfate 325 mg PO DAILY 11/22/18 [History] Lactobacillus Rhamnosus GG [Culturelle] 2 cap PO DAILY 11/22/18 [History] Mirtazapine 7.5 mg PO BEDTIME 11/22/18 [History] Pantoprazole Sodium [Protonix] 40 mg PO BEDTIME 11/22/18 [History] Sertraline HCl 50 mg PO DAILY 11/22/18 [History] Sulfamethoxazole/Trimethoprim [Bactrim Ds Tablet] 1 each PO BID #84 tablet 11/22 [Rx] buPROPion [buPROPion XL] 300 mg PO DAILY 11/22/18 [History] rOPINIRole [Requip] 0.5 mg PO TID 11/22/18 [History] Past Medical History HEENT History: Reports: Hard of Hearing, Impaired Vision Gastrointestinal History: Reports: Cholelithiasis, GERD, Hiatal Hernia Genitourinary History: Reports: Prostate Disorder Musculoskeletal History: Reports: Back Pain, Chronic, Neck Pain, Chronic Neurological History: Reports: Migraines, Neuropathy, Peripheral, Parkinson's Psychiatric History: Reports: Anxiety, Bipolar, Depression Dermatologic History: Reports: None - Infectious Disease History Infectious Disease History: Reports: Chicken Pox - Past Surgical History GI Surgical History: Reports: Cholecystectomy, Colonoscopy, EGD, [place] Fundoplication Musculoskeletal Surgical History: Reports: Arthroscopic Knee, Other (See Below) Other Musculoskeletal Surgeries/Procedures:: acl surgery, cartilage surgery in lower legs bilateral Social & Family History - Family History Family Medical History: Noncontributory - Tobacco Use Smoking Status *Q: Never Smoker - Caffeine Use Caffeine Use: Reports: Coffee - Alcohol Use Alcohol Use History: No - Recreational Drug Use Recreational Drug Use: No H&P Review of Systems - Review of Systems: Review Of Systems: See Below Free Text/Narrative: A complete 12 point review of systems was obtained. Pertinent positives and negatives are noted in the history of present illness. All other systems were reviewed and were negative except as noted. Exam - Exam Exam: See Below - Vital Signs Vital Signs: Last Vital Signs Temp 37.8 C 11/22/18 14:10 Pulse 65 11/22/18 13:10 Resp 16 11/22/18 13:10 BP 102/66 11/22/18 13:10 Pulse Ox 97 11/22/18 13:10 Weight: 68.039 kg - Exam Quality Assessment: No: Supplemental Oxygen General: Alert, Oriented, Cooperative. No: Mild Distress HEENT: Conjunctiva Clear, Other (Right ear appears normal internally and externally. Left ear appears normal externally. Inside the ear canal there is a small abrasion at the 6 o'clock position with some old clotted blood and small quantity noted around the area of abrasion.). No: Mucosa Moist & [place] (dry), Scleral Icterus Neck: Supple. No: Lymphadenopathy, Thyromegaly Lungs: Clear to Auscultation, Normal Respiratory Effort Cardiovascular: Regular Rate, Regular Rhythm. No: Systolic Murmur GI/Abdominal Exam: Normal Bowel Sounds, Soft, Non-Tender, No Distention, No Mass Extremities: No Pedal Edema. No: Increased Warmth Peripheral Pulses: 2+: Dorsalis Pedis (L), Dorsalis Pedis (R) Skin: Warm, Dry Neuro Extensive - Mental Status: Alert, Oriented x3, Nl Response to Commands Neuro Extensive - Motor, Sensory, Reflexes: No: Dysarthria, Abnormal Motor, Tremor Psychiatric: Alert, Normal Affect - Patient Data Lab Results Last 24 hrs: Laboratory Results - last 24 hr 11/22/18 11/22/18 11/22/18 Range/Units 08:41 08:41 08:41 WBC 14.9 H (4.5-11.0) K/uL RBC 3.61 L (4.30-5.90) M/uL Hgb 12.2 D (12.0-15.0) g/dL Hct 35.8 L (40.0-54.0) % MCV 99 H (80-98) fL MCH 34 H (27-31) pg MCHC 34 (32-36) % Plt Count 202 (150-400) K/uL Add Manual Diff Yes Neutrophils % (Manual) Not Reportable Band Neutrophils % 10 (5-11) % Lymphocytes % (Manual) 77 H (24-44) % Monocytes % (Manual) 5 (2-6) % Eosinophils % (Manual) 5 H (2-4) % Basophils % (Manual) 3 H (0-1) % Sodium 136 L (140-148) mmol/L Potassium 4.0 (3.6-5.2) mmol/L Chloride 100 (100-108) mmol/L Carbon Dioxide 26 (21-32) mmol/L Anion Gap 14.0 (5.0-14.0) mmol/L BUN 15 D (7-18) mg/dL Creatinine 1.3 (0.8-1.3) mg/dL Est Cr Clr Drug Dosing 52.34 mL/min Estimated GFR (MDRD) 55 L (>60) Glucose 100 (74-106) mg/dL Lactic Acid 2.4 H (0.4-2.0) mmol/L Calcium 9.9 (8.5-10.1) mg/dL Total Bilirubin 0.4 (0.2-1.0) mg/dL AST 33 (15-37) U/L ALT 26 (12-78) U/L Alkaline Phosphatase 91 (46-116) U/L C-Reactive Protein (0.0-0.3) mg/dL Total Protein 7.2 (6.4-8.2) g/dL Albumin 3.5 (3.4-5.0) g/dL Globulin 3.7 H (2.3-3.5) g/dL Albumin/Globulin Ratio 1.0 L (1.2-2.2) Urine Color Urine Appearance Urine pH (4.5-8.0) Ur Specific [place] (1.008-1.030) Urine Protein (NEGATIVE) mg/dL Urine Glucose (UA) (NEGATIVE) mg/dL Urine Ketones (NEGATIVE) mg/dL Urine Occult Blood (NEGATIVE) Urine Nitrite (NEGAITVE) Urine Bilirubin (NEGATIVE) Urine Urobilinogen (NORMAL) mg/dL Ur Leukocyte Esterase (NEGATIVE) Urine RBC (0-5) Urine WBC (0-5) Ur Epithelial Cells Amorphous Sediment Urine Bacteria Urine Mucus 11/22/18 11/22/18 Range/Units 08:49 09:00 WBC (4.5-11.0) K/uL RBC (4.30-5.90) M/uL Hgb (12.0-15.0) g/dL Hct (40.0-54.0) % MCV (80-98) fL MCH (27-31) pg MCHC (32-36) % Plt Count (150-400) K/uL Add Manual Diff Neutrophils % (Manual) Band Neutrophils % (5-11) % Lymphocytes % (Manual) (24-44) % Monocytes % (Manual) (2-6) % Eosinophils % (Manual) (2-4) % Basophils % (Manual) (0-1) % Sodium (140-148) mmol/L Potassium (3.6-5.2) mmol/L Chloride (100-108) mmol/L Carbon Dioxide (21-32) mmol/L Anion Gap (5.0-14.0) mmol/L BUN (7-18) mg/dL Creatinine (0.8-1.3) mg/dL Est Cr Clr Drug Dosing mL/min Estimated GFR (MDRD) (>60) Glucose (74-106) mg/dL Lactic Acid (0.4-2.0) mmol/L Calcium (8.5-10.1) mg/dL Total Bilirubin (0.2-1.0) mg/dL AST (15-37) U/L ALT (12-78) U/L Alkaline Phosphatase (46-116) U/L C-Reactive Protein 2.87 H (0.0-0.3) mg/dL Total Protein (6.4-8.2) g/dL Albumin (3.4-5.0) g/dL Globulin (2.3-3.5) g/dL Albumin/Globulin Ratio (1.2-2.2) Urine Color Yellow Urine Appearance Clear Urine pH 7.0 (4.5-8.0) Ur Specific [place] 1.005 L (1.008-1.030) Urine Protein Trace (NEGATIVE) mg/dL Urine Glucose (UA) Negative (NEGATIVE) mg/dL Urine Ketones Negative (NEGATIVE) mg/dL Urine Occult Blood Negative (NEGATIVE) Urine Nitrite Negative (NEGAITVE) Urine Bilirubin Negative (NEGATIVE) Urine Urobilinogen Normal (NORMAL) mg/dL Ur Leukocyte Esterase Negative (NEGATIVE) Urine RBC Not seen (0-5) Urine WBC Not seen (0-5) Ur Epithelial Cells Not seen Amorphous Sediment Rare Urine Bacteria Not seen Urine Mucus Not seen Result Diagrams: 11/22/18 08:41 11/22/18 08:41 Imaging Impressions Last 24 hrs: Chest x-ray - images personally reviewed - lungs are clear with no mass, infiltrate or effusion. Heart size is normal. *Q Meaningful Use (ADM) - VTE Risk Assess *Q Each Risk Factor Represents 1 Point: None Total Score 1 Point Risk Factors: 0 Each Risk Factor Represents 2 Points: None Total Score 2 Point Risk Factors: 0 Each Risk Factor Represents 3 Points: None Total Score 3 Point Risk Factors: 0 Each Risk Factor Represents 5 Points: None Total Score 5 Point Risk Factors: 0 Venous Thromboembolism Risk Factor Score *Q: 0 - Problem List (1) Prostatitis SNOMED Code(s): 2688299 ICD Code: N41.9 - INFLAMMATORY DISEASE OF PROSTATE, UNSPECIFIED Status: Acute Current Visit: Yes Qualifiers: Prostatitis type: acute Qualified Code(s): N41.0 - Acute prostatitis (2) Generalized weakness SNOMED Code(s): 25690159 ICD Code: R53.1 - WEAKNESS Status: Acute Current Visit: Yes (3) Restless leg syndrome, uncontrolled SNOMED Code(s): 32364778 ICD Code: G25.81 - RESTLESS LEGS SYNDROME Status: Acute Current Visit: Yes (4) Bipolar 2 disorder SNOMED Code(s): 55853696 ICD Code: F31.81 - BIPOLAR II DISORDER Status: Chronic Current Visit: No Problem List Initiated/Reviewed/Updated: Yes Orders Last 24hrs: Active Orders 24 hr Category Date Time Status Patient Status Manage Transfer [TRANSFER] Routine ADT 11/22/18 14:51 Ordered Bladder Scan [RC] ASDIRECTED Care 11/22/18 12:13 Active Peripheral IV Care [RC] . DIRECTED Care 11/22/18 09:28 Active CULTURE BLOOD [BC] Routine Lab 11/22/18 08:35 Received CULTURE BLOOD [BC] Stat Lab 11/22/18 08:30 Received CULTURE URINE [RM] Stat Lab 11/22/18 09:00 Received LITHIUM (ESKALITH(R)), SERUM Stat Lab 11/22/18 08:30 Received Lactated Ringers [Ringers, Lactated] 1,000 ml Med 11/22/18 09:45 Active IV ASDIRECTED Lactated Ringers [Ringers, Lactated] 500 ml Med 11/22/18 09:45 Active IV .BOLUS Sodium Chloride 0.9% [Saline Flush] Med 11/22/18 09:23 Active 10 ml FLUSH ASDIRECTED PRN Peripheral IV Insertion Adult [OM.PC] Routine Oth 11/22/18 09:23 Ordered Resuscitation Status Routine Resus Stat 11/22/18 14:54 Ordered Medication Orders Lactated Ringer's (Ringers, Lactated) 500 mls @ 999 mls/hr IV .BOLUS ELSA Last Admin: 11/22/18 09:45 Dose: 999 mls/hr Lactated Ringer's (Ringers, Lactated) 1,000 mls @ 125 mls/hr IV ASDIRECTED ELSA Last Admin: 11/22/18 10:21 Dose: 125 mls/hr Sodium Chloride (Saline Flush) 10 ml FLUSH ASDIRECTED PRN PRN Reason: Keep Vein Open Last Admin: 11/22/18 09:46 Dose: 10 ml Assessment/Plan Comment:: ASSESSMENT AND PLAN - Acute prostatitis - urinary symptoms with very tender prostate. Mild leukocytosis but no sepsis. I suspect his generalized weakness is related to the acute infection. -Bactrim 2 weeks -Gentle fluids overnight -Pain control -Follow-up urine culture Restless leg syndrome - Increase symptoms in recent days, possibly worsened by his infection. -Increase ropinirole to 1 mg 3 times a day -Check magnesium level and supplement as indicated Left ear abrasion - Small abrasion with clotted blood noted at the 6 o'clock position. Likely related to his hearing aid. -Saline drops to the ear to help keep it moist Bipolar disorder - Psychiatric illness is stable at this time. -Continue lithium and antidepressants Maintenance issues - - DVT prophylaxis - mechanical - GI prophylaxis - PPI - Nutrition - regular - Tovar catheter - not indicated CODE STATUS - full code Admission justification - patient will be referred observation status for fluids overnight and physical therapy in the morning Disposition - I would anticipate discharge to home tomorrow Primary care physician - Dr Geremias Benson M.D.
[2018-11-22] MEDS: Lactated Ringers 1,000 ML IV SCH ×2 (15:51→23:42)
[2018-11-22] MEDS: Acetaminophen 325 MG Tab PO PRN ×2 (16:20→23:49)
[2018-11-22] MEDS: Sulfamethoxazole/Trimethoprim 800-160 MG Tab PO SCH (16:36)
[2018-11-22] MEDS: ROPINIROLE 0.5 MG PO SCH ×2 (19:27→20:01)
[2018-11-22] MEDS: LITHIUM CARBONATE 450 MG PO SCH (20:00)
[2018-11-22] MEDS: PANTOPRAZOLE 40 MG PO SCH (20:00)
[2018-11-22] MEDS: Inulin 1.5 GM Chewable Tab PO SCH (20:01)
[2018-11-22] MEDS ORDERED: MIRTAZAPINE 7.5 MG PO SCH (21:00)
[2018-11-23] MEDS ORDERED: MIRTAZAPINE 7.5 MG PO SCH (07:19)
[2018-11-23] MEDS: Lactobacillus Rhamnosus GG (Probiotic) Cap PO SCH (08:04)
[2018-11-23] MEDS: Ferrous Sulfate 325 MG Tab PO SCH (08:04)
[2018-11-23] MEDS: Inulin 1.5 GM Chewable Tab PO SCH ×2 (08:05→22:00)
[2018-11-23] MEDS: Polyethylene Glycol 3350 Powder 17 GM Packet PO SCH (08:05)
[2018-11-23] MEDS: ROPINIROLE 0.5 MG PO SCH ×3 (08:06→22:00)
[2018-11-23] MEDS: Cholecalciferol (Vitamin D3) 1,000 Unit Tab PO SCH (08:09)
[2018-11-23] MEDS: Cyanocobalamin (Vitamin B12) 1,000 MCG Tab PO SCH (08:09)
[2018-11-23] MEDS: Sulfamethoxazole/Trimethoprim 800-160 MG Tab PO SCH (08:09)
[2018-11-23] MEDS: BUPROPION 300 MG PO SCH (08:36)
[2018-11-23] MEDS: SERTRALINE 100 MG PO SCH (08:36)
[2018-11-23] MEDS ORDERED: Sertraline 50 MG Tab PO SCH (09:00)
[2018-11-23] MEDS ORDERED: buPROPion 150 MG Tab.ER PO SCH (09:00)
--- NOTE | 2018-11-23 13:09 | PCM.PN ---
- General Info Date of Service: 11/23/18 Subjective Update: Mr. Morris through the emergency department yesterday with weakness secondary to prostatitis. He does have known underlying Parkinson's disease and became very weak yesterday. He been experiencing symptoms of urinary incontinence, urinalysis obtained in the emergency department was clear showing no evidence of cystitis. Continues to have fever since admission and has been treated with oral trimethoprim sulfamethoxazole. Functional Status: Reports: Tolerating Diet, Urinating - Review of Systems General: Reports: Fever, Weakness, Chills Pulmonary: Reports: No Symptoms Cardiovascular: Reports: No Symptoms Gastrointestinal: Reports: No Symptoms Genitourinary: Reports: Frequency, Incontinence - Patient Data Vitals - Most Recent: Last Vital Signs Temp 99.1 F 11/23/18 10:35 Pulse 78 11/23/18 10:35 Resp 18 11/23/18 10:35 BP 108/72 11/23/18 10:35 Pulse Ox 100 11/23/18 10:35 Weight - Most Recent: 150 lb I&O - Last 24 Hours: Intake & Output 11/22/18 11/23/18 11/23/18 22:59 06:59 14:59 Intake Total 240 2300 236 Balance 240 2300 236 Lab Results Last 24 Hours: Laboratory Results - last 24 hr 11/22/18 11/23/18 11/23/18 Range/Units 15:23 05:11 05:43 WBC 11.5 H (4.5-11.0) K/uL RBC 3.53 L (4.30-5.90) M/uL Hgb 11.5 L (12.0-15.0) g/dL Hct 35.4 L (40.0-54.0) % MCV 100 H (80-98) fL MCH 33 H (27-31) pg MCHC 33 (32-36) % Plt Count 152 (150-400) K/uL Sodium 138 L (140-148) mmol/L Potassium 3.8 (3.6-5.2) mmol/L Chloride 103 (100-108) mmol/L Carbon Dioxide 27 (21-32) mmol/L Anion Gap 11.8 (5.0-14.0) mmol/L BUN 12 (7-18) mg/dL Creatinine 1.3 (0.8-1.3) mg/dL Est Cr Clr Drug Dosing 52.34 mL/min Estimated GFR (MDRD) 55 L (>60) Glucose 112 H (74-106) mg/dL Calcium 9.4 (8.5-10.1) mg/dL Magnesium 2.1 (1.8-2.4) mg/dL Iron (65-175) ug/dL TIBC (250-450) ug/dl % Saturation (20-55) % Vitamin B12 720 (193-986) pg/ml Folate 15.5 (8.6-58.9) ng/ml TSH, Ultra Sensitive 3.562 (0.358-3.740) uIU/mL 11/23/18 Range/Units 05:43 WBC (4.5-11.0) K/uL RBC (4.30-5.90) M/uL Hgb (12.0-15.0) g/dL Hct (40.0-54.0) % MCV (80-98) fL MCH (27-31) pg MCHC (32-36) % Plt Count (150-400) K/uL Sodium (140-148) mmol/L Potassium (3.6-5.2) mmol/L Chloride (100-108) mmol/L Carbon Dioxide (21-32) mmol/L Anion Gap (5.0-14.0) mmol/L BUN (7-18) mg/dL Creatinine (0.8-1.3) mg/dL Est Cr Clr Drug Dosing mL/min Estimated GFR (MDRD) (>60) Glucose (74-106) mg/dL Calcium (8.5-10.1) mg/dL Magnesium (1.8-2.4) mg/dL Iron 94 (65-175) ug/dL TIBC 323 (250-450) ug/dl % Saturation 29 (20-55) % Vitamin B12 (193-986) pg/ml Folate (8.6-58.9) ng/ml TSH, Ultra Sensitive (0.358-3.740) uIU/mL Ad Results Last 24 Hours: Microbiology 11/22/18 08:35 Aerobic Blood Culture - Preliminary Blood - Arm, Right NO GROWTH AFTER 1 DAY Anaerobic Blood Culture - Preliminary NO GROWTH AFTER 1 DAY 11/22/18 08:30 Aerobic Blood Culture - Preliminary Blood - Venous - Iv Start NO GROWTH AFTER 1 DAY Anaerobic Blood Culture - Preliminary NO GROWTH AFTER 1 DAY 11/22/18 09:00 Urine Culture - Preliminary Urine, Clean Catch NO GROWTH AFTER 1 DAY Med Orders - Current: Current Medications Acetaminophen (Tylenol) 650 mg PO Q4H PRN PRN Reason: Pain (Mild 1-3)/fever Last Admin: 11/22/18 23:49 Dose: 650 mg Alprazolam (Xanax) 0.5 - 1 mg PO TID PRN PRN Reason: Anxiety Cholecalciferol (Vitamin D3) 1,000 units PO DAILY [facility] Last Admin: 11/23/18 08:09 Dose: 1,000 units Cyanocobalamin (Vitamin B12) 1,000 mcg PO DAILY [facility] Last Admin: 11/23/18 08:09 Dose: 1,000 mcg Ferrous Sulfate (Ferrous Sulfate) 325 mg PO DAILY@0800 [facility] Last Admin: 11/23/18 08:04 Dose: 325 mg Inulin (Fiber Choice) 4.5 gm PO BID [facility] Last Admin: 11/23/18 08:05 Dose: 4.5 gm Lactobacillus Rhamnosus (Culturelle) 2 cap PO DAILY [facility] Last Admin: 11/23/18 08:04 Dose: 2 cap [place] Carbonate (Eskalith Cr) 900 mg PO BEDTIME [facility] Last Admin: 11/22/18 20:00 Dose: 900 mg Bupropion 300 Mg Tab (.ErPom) 0 each PO DAILY [facility] Last Admin: 11/23/18 08:36 Dose: Not Given Sertraline 100 Mg (TabPom) 0 each PO DAILY [facility] Last Admin: 11/23/18 08:36 Dose: Not Given Ondansetron HCl (Zofran Odt) 4 mg PO Q6H PRN PRN Reason: Nausea able to take PO Pantoprazole Sodium (Protonix) 40 mg PO BEDTIME [facility] Last Admin: 11/22/18 20:00 Dose: 40 mg Mirtazapine 7.5 Mg (Tab Pom) 0 each PO BEDTIME [facility] Polyethylene Glycol (Miralax) 17 gm PO DAILY [facility] Last Admin: 11/23/18 08:05 Dose: Not Given Ropinirole HCl (Requip) 1 mg PO TID [facility] Last Admin: 11/23/18 08:06 Dose: 1 mg Sodium Chloride (Saline Flush) 10 ml FLUSH ASDIRECTED PRN PRN Reason: Keep Vein Open Last Admin: 11/22/18 09:46 Dose: 10 ml Trimethoprim/Sulfamethoxazole (Septra Ds) 1 tab PO BID [facility] Last Admin: 11/23/18 08:09 Dose: 1 tab Discontinued Medications Bupropion HCl (Wellbutrin Xl) 300 mg PO DAILY [facility] Last Admin: 11/23/18 08:09 Dose: 300 mg Lactated Ringer's (Ringers, Lactated) 500 mls @ 999 mls/hr IV .BOLUS [facility] Last Admin: 11/22/18 09:45 Dose: 999 mls/hr Lactated Ringer's (Ringers, Lactated) 1,000 mls @ 125 mls/hr IV ASDIRECTED [facility] Last Admin: 11/22/18 10:21 Dose: 125 mls/hr Lactated Ringer's (Ringers, Lactated) 1,000 mls @ 125 mls/hr IV ASDIRECTED [facility] Last Admin: 11/22/18 23:42 Dose: 125 mls/hr Mirtazapine 7.5 Mg (Tab *Pt Own Med*) 7.5 each PO BEDTIME [facility] Last Admin: 11/22/18 20:00 Dose: 7.5 each Sertraline HCl (Zoloft) 50 mg PO DAILY [facility] Last Admin: 11/23/18 08:10 Dose: Not Given - Exam Quality Assessment: DVT Prophylaxis General: Alert, Oriented, Cooperative, Moderate Distress Lungs: Clear to Auscultation, Normal Respiratory Effort Cardiovascular: Regular Rate, Regular Rhythm, No Murmurs GI/Abdominal Exam: Soft, Non-Tender, No Organomegaly, No Distention Extremities: Non-Tender, No Pedal Edema - Problem List Review Problem List Initiated/Reviewed/Updated: Yes - My Orders Last 24 Hours: My Active Orders 11/23/18 11:41 Convert IV to Saline Lock [OM.PC] Routine - Plan Plan:: ASSESSMENT AND PLAN - Acute prostatitis - urinary symptoms with very tender prostate. Tenuous to experience temperature elevations, white blood cell count improved from admission -Ciprofloxacin 400 mg IV every 12 hours -Gentle fluids -Pain control -Follow-up urine culture Restless leg syndrome - Increase symptoms in recent days, possibly worsened by his infection. -Increase ropinirole to 1 mg 3 times a day -Check magnesium level and supplement as indicated Left ear abrasion - Small abrasion with clotted blood noted at the 6 o'clock position. Likely related to his hearing aid. -Saline drops to the ear to help keep it moist Bipolar disorder - Psychiatric illness is stable at this time. -Continue lithium and antidepressants Maintenance issues - - DVT prophylaxis - mechanical - GI prophylaxis - PPI - Nutrition - regular - Tovar catheter - not indicated CODE STATUS - full code Admission justification - patient will be referred observation status for fluids overnight and physical therapy in the morning Disposition - I would anticipate discharge to home tomorrow Primary care physician - Dr Archuleta
[2018-11-23] MEDS: Acetaminophen 325 MG Tab PO PRN ×2 (13:49→19:41)
[2018-11-23] MEDS: ALPRAZolam 0.5 MG Tab PO PRN (14:31)
[2018-11-23] MEDS ORDERED: Sodium Chloride 0.9% 1,000 ML IV SCH (17:00)
[2018-11-23] MEDS: Ciprofloxacin in D5W 400 MG in Premix Bag 1 BAG IV SCH ×2 (18:09)
[2018-11-23] MEDS: LITHIUM CARBONATE 450 MG PO SCH (21:58)
[2018-11-23] MEDS: PANTOPRAZOLE 40 MG PO SCH (21:59)
[2018-11-24] MEDS: Ciprofloxacin in D5W 400 MG in Premix Bag 1 BAG IV SCH ×4 (06:10→17:31)
[2018-11-24] MEDS: Lactobacillus Rhamnosus GG (Probiotic) Cap PO SCH (09:40)
[2018-11-24] MEDS: Ferrous Sulfate 325 MG Tab PO SCH (09:40)
[2018-11-24] MEDS: Inulin 1.5 GM Chewable Tab PO SCH ×2 (09:43→20:03)
[2018-11-24] MEDS: Polyethylene Glycol 3350 Powder 17 GM Packet PO SCH ×2 (09:43→09:53)
[2018-11-24] MEDS: BUPROPION 300 MG PO SCH (09:44)
[2018-11-24] MEDS: SERTRALINE 100 MG PO SCH (09:45)
[2018-11-24] MEDS: Cyanocobalamin (Vitamin B12) 1,000 MCG Tab PO SCH (09:46)
[2018-11-24] MEDS: ROPINIROLE 0.5 MG PO SCH ×2 (09:46→14:19)
[2018-11-24] MEDS: Cholecalciferol (Vitamin D3) 1,000 Unit Tab PO SCH (09:47)
[2018-11-24] MEDS: Ondansetron 4 MG Tab.DIS PO PRN (11:56)
[2018-11-24] MEDS ORDERED: Sodium Chloride 0.9% 1,000 ML IV SCH (12:15)
[2018-11-24] MEDS: ALPRAZolam 0.5 MG Tab PO PRN (12:28)
[2018-11-24] MEDS ORDERED: Gentamicin 40 MG/ML 2 ML Vial IV SCH (13:30)
[2018-11-24] MEDS: Sodium Chloride 0.9% 1,000 ML IV SCH (16:16)
--- NOTE | 2018-11-24 18:14 | PCM.PN ---
- General Info Date of Service: 11/24/18 Subjective Update: Mr. Morris continues to experience regular temperature elevations and ongoing lethargy with weakness and anorexia. Denies significant pelvic pain, no other source of infection identified to this point. Functional Status: Reports: Urinating (Ongoing urinary incontinence). Denies: Tolerating Diet, Ambulating - Review of Systems General: Reports: Fever, Weakness, Malaise, Chills Pulmonary: Reports: No Symptoms Cardiovascular: Reports: No Symptoms Gastrointestinal: Reports: No Symptoms Genitourinary: Reports: Incontinence. Denies: Pain, Hematuria - Patient Data Vitals - Most Recent: Last Vital Signs Temp 101.7 F H 11/24/18 15:23 Pulse 79 11/24/18 15:23 Resp 16 11/24/18 15:23 BP 121/75 11/24/18 15:23 Pulse Ox 96 11/24/18 15:23 Weight - Most Recent: 150 lb I&O - Last 24 Hours: Intake & Output 11/24/18 11/24/18 11/24/18 06:59 14:59 22:59 Intake Total 400 430 858 Output Total 150 750 Balance 250 -320 858 Lab Results Last 24 Hours: Laboratory Results - last 24 hr 11/22/18 11/22/18 11/24/18 Range/Units 08:30 08:41 05:00 WBC 9.9 (4.5-11.0) K/uL RBC 3.62 L (4.30-5.90) M/uL Hgb 11.9 L (12.0-15.0) g/dL Hct 36.2 L (40.0-54.0) % MCV 100 H (80-98) fL MCH 33 H (27-31) pg MCHC 33 (32-36) % Plt Count 127 L (150-400) K/uL Add Manual Diff Yes Neutrophils % (Manual) 58 52 (36-66) % Band Neutrophils % 9 20 H (5-11) % Lymphocytes % (Manual) 25 18 L (24-44) % Monocytes % (Manual) 6 5 (2-6) % Eosinophils % (Manual) 1 L 2 (2-4) % Basophils % (Manual) 0 (0-1) % Metamyelocytes % 1 3 % Differential Comment Sodium (140-148) mmol/L Potassium (3.6-5.2) mmol/L Chloride (100-108) mmol/L Carbon Dioxide (21-32) mmol/L Anion Gap (5.0-14.0) mmol/L BUN (7-18) mg/dL Creatinine (0.8-1.3) mg/dL Est Cr Clr Drug Dosing mL/min Estimated GFR (MDRD) (>60) Glucose (74-106) mg/dL Calcium (8.5-10.1) mg/dL [place] 1.0 (0.6-1.2) mmol/L 11/24/18 Range/Units 05:00 WBC (4.5-11.0) K/uL RBC (4.30-5.90) M/uL Hgb (12.0-15.0) g/dL Hct (40.0-54.0) % MCV (80-98) fL MCH (27-31) pg MCHC (32-36) % Plt Count (150-400) K/uL Add Manual Diff Neutrophils % (Manual) (36-66) % Band Neutrophils % (5-11) % Lymphocytes % (Manual) (24-44) % Monocytes % (Manual) (2-6) % Eosinophils % (Manual) (2-4) % Basophils % (Manual) (0-1) % Metamyelocytes % % Differential Comment Sodium 137 L (140-148) mmol/L Potassium 4.1 (3.6-5.2) mmol/L Chloride 100 (100-108) mmol/L Carbon Dioxide 27 (21-32) mmol/L Anion Gap 14.1 H (5.0-14.0) mmol/L BUN 8 (7-18) mg/dL Creatinine 1.3 (0.8-1.3) mg/dL Est Cr Clr Drug Dosing 52.34 mL/min Estimated GFR (MDRD) 55 L (>60) Glucose 119 H (74-106) mg/dL Calcium 9.7 (8.5-10.1) mg/dL [place] (0.6-1.2) mmol/L Ad Results Last 24 Hours: Microbiology 11/22/18 08:35 Aerobic Blood Culture - Preliminary Blood - Arm, Right NO GROWTH AFTER 2 DAYS Anaerobic Blood Culture - Preliminary NO GROWTH AFTER 2 DAYS 11/22/18 08:30 Aerobic Blood Culture - Preliminary Blood - Venous - Iv Start NO GROWTH AFTER 2 DAYS Anaerobic Blood Culture - Preliminary NO GROWTH AFTER 2 DAYS 11/22/18 09:00 Urine Culture - Final Urine, Clean Catch NO GROWTH AFTER 2 DAYS Med Orders - Current: Current Medications Acetaminophen (Tylenol) 650 mg PO Q4H PRN PRN Reason: Pain (Mild 1-3)/fever Last Admin: 11/23/18 19:41 Dose: 650 mg Alprazolam (Xanax) 0.5 - 1 mg PO TID PRN PRN Reason: Anxiety Last Admin: 11/24/18 12:28 Dose: 1 mg Bupropion HCl (Wellbutrin Xl) 300 mg PO DAILY [facility] Cholecalciferol (Vitamin D3) 1,000 units PO DAILY [facility] Last Admin: 11/24/18 09:47 Dose: 1,000 units Cyanocobalamin (Vitamin B12) 1,000 mcg PO DAILY [facility] Last Admin: 11/24/18 09:46 Dose: 1,000 mcg Ferrous Sulfate (Ferrous Sulfate) 325 mg PO DAILY@0800 [facility] Last Admin: 11/24/18 09:40 Dose: 325 mg Ciprofloxacin/Dextrose 400 mg/ (Premix) 200 mls @ 200 mls/hr IV Q12H [facility] Last Admin: 11/24/18 17:31 Dose: 200 mls/hr Sodium Chloride (Normal Saline) 1,000 mls @ 125 mls/hr IV ASDIRECTED [facility] Last Admin: 11/24/18 16:16 Dose: 125 mls/hr Inulin (Fiber Choice) 4.5 gm PO BID [facility] Last Admin: 11/24/18 09:43 Dose: 4.5 gm Lactobacillus Rhamnosus (Culturelle) 2 cap PO DAILY [facility] Last Admin: 11/24/18 09:40 Dose: 2 cap [place] Carbonate (Eskalith Cr) 900 mg PO BEDTIME [facility] Mirtazapine (Remeron) 7.5 mg PO BEDTIME [facility] Ondansetron HCl (Zofran Odt) 4 mg PO Q6H PRN PRN Reason: Nausea able to take PO Last Admin: 11/24/18 11:56 Dose: 4 mg Pantoprazole Sodium (Protonix) 40 mg PO BEDTIME [facility] Polyethylene Glycol (Miralax) 17 gm PO DAILY [facility] Last Admin: 11/24/18 09:53 Dose: Not Given Ropinirole HCl (Requip) 1 mg PO TID [facility] Sertraline HCl (Zoloft) 50 mg PO DAILY [facility] Sertraline HCl (Zoloft) 100 mg PO DAILY [facility] Sodium Chloride (Saline Flush) 10 ml FLUSH ASDIRECTED PRN PRN Reason: Keep Vein Open Last Admin: 11/22/18 09:46 Dose: 10 ml Discontinued Medications Bupropion HCl (Wellbutrin Xl) 300 mg PO DAILY [facility] Last Admin: 11/23/18 08:09 Dose: 300 mg Gentamicin Sulfate (Gentamicin) 1 mg IV .Pharmacy to Dose [facility] Stop: 11/24/18 14:00 Lactated Ringer's (Ringers, Lactated) 500 mls @ 999 mls/hr IV .BOLUS [facility] Last Admin: 11/22/18 09:45 Dose: 999 mls/hr Lactated Ringer's (Ringers, Lactated) 1,000 mls @ 125 mls/hr IV ASDIRECTED [facility] Last Admin: 11/22/18 10:21 Dose: 125 mls/hr Lactated Ringer's (Ringers, Lactated) 1,000 mls @ 125 mls/hr IV ASDIRECTED [facility] Last Admin: 11/22/18 23:42 Dose: 125 mls/hr Sodium Chloride (Normal Saline) 1,000 mls @ 75 mls/hr IV ASDIRECTED [facility] Sodium Chloride (Normal Saline) 1,000 mls @ 125 mls/hr IV ASDIRECTED [facility] Gentamicin Sulfate 340 mg/ (Sodium Chloride) 108.5 mls @ 200 mls/hr IV ONETIME ONE Stop: 11/24/18 14:32 Last Admin: 11/24/18 13:56 Dose: 200 mls/hr [place] Carbonate (Eskalith Cr) 900 mg PO BEDTIME [facility] Last Admin: 11/23/18 21:58 Dose: 900 mg Bupropion 300 Mg Tab (.ErPom) 0 each PO DAILY [facility] Last Admin: 11/24/18 09:44 Dose: 1 each Sertraline 100 Mg (TabPom) 0 each PO DAILY [facility] Last Admin: 11/24/18 09:45 Dose: 1 each Pantoprazole Sodium (Protonix) 40 mg PO BEDTIME [facility] Last Admin: 11/23/18 21:59 Dose: 40 mg Mirtazapine 7.5 Mg (Tab *Pt Own Med*) 7.5 each PO BEDTIME [facility] Last Admin: 11/22/18 20:00 Dose: 7.5 each Mirtazapine 7.5 Mg (Tab Pom) 0 each PO BEDTIME [facility] Last Admin: 11/23/18 21:58 Dose: 1 each Ropinirole HCl (Requip) 1 mg PO TID [facility] Last Admin: 11/24/18 14:19 Dose: 1 mg Sertraline HCl (Zoloft) 50 mg PO DAILY [facility] Last Admin: 11/23/18 08:10 Dose: Not Given Trimethoprim/Sulfamethoxazole (Septra Ds) 1 tab PO BID [facility] Last Admin: 11/23/18 08:09 Dose: 1 tab - Exam Quality Assessment: DVT Prophylaxis General: Alert, Oriented, Cooperative, Moderate Distress Lungs: Clear to Auscultation, Normal Respiratory Effort Cardiovascular: Regular Rate, Regular Rhythm, No Murmurs GI/Abdominal Exam: Soft, Non-Tender, No Organomegaly, No Distention Extremities: Non-Tender, No Pedal Edema - Problem List Review Problem List Initiated/Reviewed/Updated: Yes - My Orders Last 24 Hours: My Active Orders 11/23/18 18:00 Ciprofloxacin in D5W [Cipro in D5W 400 MG/200 ML] 400 mg Premix Bag 1 bag IV Q12H 11/24/18 13:23 Patient Status [ADT] Routine 11/24/18 13:45 Sodium Chloride 0.9% [Normal Saline] 1,000 ml IV ASDIRECTED 11/25/18 01:00 GENTAMICIN RANDOM [CHEM] Timed 11/25/18 05:00 BASIC METABOLIC PANEL,BMP [CHEM] Timed CBC WITH AUTO DIFF [HEME] Timed 11/25/18 05:11 GLYCOSYLATED HEMOGLOBIN,HGBA1C [CHEM] AM VITAMIN D,25-HYDROXY [CHEM] AM 11/25/18 09:00 Sertraline [Zoloft] 50 mg PO DAILY - Plan Plan:: ASSESSMENT AND PLAN - Acute prostatitis - urinary symptoms with very tender prostate. Continues to experience temperature elevations, white blood cell count has normalized -Ciprofloxacin 400 mg IV every 12 hours -IV gentamicin, pharmacy to dose -Normal saline 125 mg IV per hour -Pain control -Follow-up urine culture Restless leg syndrome - Increase symptoms in recent days, possibly worsened by his infection. -Increase ropinirole to 1 mg 3 times a day Left ear abrasion - Small abrasion with clotted blood noted at the 6 o'clock position. Likely related to his hearing aid. -Saline drops to the ear to help keep it moist Bipolar disorder - Psychiatric illness is stable at this time. -Continue lithium and antidepressants Maintenance issues - - DVT prophylaxis - mechanical - GI prophylaxis - PPI - Nutrition - regular - Tovar catheter - not indicated CODE STATUS - full code Admission justification - patient will be referred observation status for fluids overnight and physical therapy in the morning Disposition - I would anticipate discharge to home tomorrow Primary care physician - Dr Archuleta
[2018-11-24] MEDS: Acetaminophen 325 MG Tab PO PRN (20:03)
[2018-11-24] MEDS: rOPINIRole 1 MG Tab PO SCH (20:04)
[2018-11-24] MEDS: Mirtazapine 15 MG Tab PO SCH (20:04)
[2018-11-24] MEDS: Lithium Carbonate 450 MG Tab.ER PO SCH (20:05)
[2018-11-24] MEDS: Pantoprazole 40 MG Tab.CR PO SCH (20:05)
[2018-11-24] MEDS: Ibuprofen 600 MG Tab PO PRN (22:08)
[2018-11-25] MEDS: Sodium Chloride 0.9% 1,000 ML IV SCH ×3 (00:55→23:30)
[2018-11-25 01:41] LABS: HEMOGLOBIN A1C 5.6 % (4.5-6.2)
[2018-11-25] MEDS: Ciprofloxacin in D5W 400 MG in Premix Bag 1 BAG IV SCH ×4 (05:13→17:43)
[2018-11-25] MEDS ORDERED: Sertraline 50 MG Tab PO SCH ×2 (09:00)
[2018-11-25] MEDS: Cholecalciferol (Vitamin D3) 1,000 Unit Tab PO SCH (09:12)
[2018-11-25] MEDS: Cyanocobalamin (Vitamin B12) 1,000 MCG Tab PO SCH (09:12)
[2018-11-25] MEDS: rOPINIRole 1 MG Tab PO SCH ×3 (09:12→20:11)
[2018-11-25] MEDS: Lactobacillus Rhamnosus GG (Probiotic) Cap PO SCH (09:12)
[2018-11-25] MEDS: buPROPion 150 MG Tab.ER PO SCH (09:12)
[2018-11-25] MEDS: Inulin 1.5 GM Chewable Tab PO SCH ×2 (09:12→20:10)
[2018-11-25] MEDS: Ferrous Sulfate 325 MG Tab PO SCH (09:12)
[2018-11-25] MEDS: Polyethylene Glycol 3350 Powder 17 GM Packet PO SCH (09:12)
[2018-11-25] MEDS: Ondansetron 4 MG Tab.DIS PO PRN ×2 (10:05→16:03)
--- NOTE | 2018-11-25 11:04 | PCM.PN ---
- General Info Date of Service: 11/25/18 Subjective Update: Mr. Morris has been stable since yesterday evening with no recurrent temperature elevation. Overall strength seems to be improved and he is more alert and interactive this morning. White blood cell count remains within normal range, appetite is still somewhat poor. - Review of Systems General: Reports: Weakness. Denies: Fever, Chills Pulmonary: Reports: No Symptoms Cardiovascular: Reports: No Symptoms Gastrointestinal: Reports: No Symptoms - Patient Data Vitals - Most Recent: Last Vital Signs Temp 97.3 F 11/25/18 07:40 Pulse 72 11/25/18 07:40 Resp 16 11/25/18 07:40 BP 101/72 11/25/18 07:40 Pulse Ox 100 11/25/18 07:40 Weight - Most Recent: 150 lb I&O - Last 24 Hours: Intake & Output 11/24/18 11/25/18 11/25/18 22:59 06:59 14:59 Intake Total 858 1759 240 Output Total 200 1000 500 Balance 658 759 -260 Lab Results Last 24 Hours: Laboratory Results - last 24 hr 11/25/18 11/25/18 11/25/18 Range/Units 01:13 01:13 01:13 WBC 7.2 (4.5-11.0) K/uL RBC 3.48 L (4.30-5.90) M/uL Hgb 11.6 L (12.0-15.0) g/dL Hct 34.4 L (40.0-54.0) % MCV 99 H (80-98) fL MCH 33 H (27-31) pg MCHC 34 (32-36) % Plt Count 92 L (150-400) K/uL Add Manual Diff Yes Neutrophils % (Manual) 57 (36-66) % Band Neutrophils % 5 (5-11) % Lymphocytes % (Manual) 30 (24-44) % Monocytes % (Manual) 3 (2-6) % Eosinophils % (Manual) 1 L (2-4) % Basophils % (Manual) 2 H (0-1) % Metamyelocytes % 2 % Sodium (140-148) mmol/L Potassium (3.6-5.2) mmol/L Chloride (100-108) mmol/L Carbon Dioxide (21-32) mmol/L Anion Gap (5.0-14.0) mmol/L BUN (7-18) mg/dL Creatinine (0.8-1.3) mg/dL Est Cr Clr Drug Dosing mL/min Estimated GFR (MDRD) (>60) Glucose (74-106) mg/dL Hemoglobin A1c 5.6 (4.5-6.2) % Calcium (8.5-10.1) mg/dL Random Gentamicin 2.3 (0.0-12.0) ug/mL 11/25/18 Range/Units 01:13 WBC (4.5-11.0) K/uL RBC (4.30-5.90) M/uL Hgb (12.0-15.0) g/dL Hct (40.0-54.0) % MCV (80-98) fL MCH (27-31) pg MCHC (32-36) % Plt Count (150-400) K/uL Add Manual Diff Neutrophils % (Manual) (36-66) % Band Neutrophils % (5-11) % Lymphocytes % (Manual) (24-44) % Monocytes % (Manual) (2-6) % Eosinophils % (Manual) (2-4) % Basophils % (Manual) (0-1) % Metamyelocytes % % Sodium 137 L (140-148) mmol/L Potassium 4.0 (3.6-5.2) mmol/L Chloride 102 (100-108) mmol/L Carbon Dioxide 26 (21-32) mmol/L Anion Gap 13.0 (5.0-14.0) mmol/L BUN 12 (7-18) mg/dL Creatinine 1.3 (0.8-1.3) mg/dL Est Cr Clr Drug Dosing 52.34 mL/min Estimated GFR (MDRD) 55 L (>60) Glucose 104 (74-106) mg/dL Hemoglobin A1c (4.5-6.2) % Calcium 9.0 (8.5-10.1) mg/dL Random Gentamicin (0.0-12.0) ug/mL Ad Results Last 24 Hours: Microbiology 11/22/18 08:35 Aerobic Blood Culture - Preliminary Blood - Arm, Right NO GROWTH AFTER 3 DAYS Anaerobic Blood Culture - Preliminary NO GROWTH AFTER 3 DAYS 11/22/18 08:30 Aerobic Blood Culture - Preliminary Blood - Venous - Iv Start NO GROWTH AFTER 3 DAYS Anaerobic Blood Culture - Preliminary NO GROWTH AFTER 3 DAYS Med Orders - Current: Current Medications Acetaminophen (Tylenol) 650 mg PO Q4H PRN PRN Reason: Pain (Mild 1-3)/fever Last Admin: 11/24/18 20:03 Dose: 650 mg Alprazolam (Xanax) 0.5 - 1 mg PO TID PRN PRN Reason: Anxiety Last Admin: 11/24/18 12:28 Dose: 1 mg Bupropion HCl (Wellbutrin Xl) 300 mg PO DAILY [facility] Last Admin: 11/25/18 09:12 Dose: 300 mg Cholecalciferol (Vitamin D3) 1,000 units PO DAILY [facility] Last Admin: 11/25/18 09:12 Dose: 1,000 units Cyanocobalamin (Vitamin B12) 1,000 mcg PO DAILY [facility] Last Admin: 11/25/18 09:12 Dose: 1,000 mcg Ferrous Sulfate (Ferrous Sulfate) 325 mg PO DAILY@0800 [facility] Last Admin: 11/25/18 09:12 Dose: 325 mg Ciprofloxacin/Dextrose 400 mg/ (Premix) 200 mls @ 200 mls/hr IV Q12H [facility] Last Admin: 11/25/18 05:13 Dose: 200 mls/hr Gentamicin Sulfate 400 mg/ (Sodium Chloride) 110 mls @ 202.765 mls/hr IV Q24H [facility] Ibuprofen (Motrin) 600 mg PO Q6H PRN PRN Reason: Fever Last Admin: 11/24/18 22:08 Dose: 600 mg Inulin (Fiber Choice) 4.5 gm PO BID [facility] Last Admin: 11/25/18 09:12 Dose: 4.5 gm Lactobacillus Rhamnosus (Culturelle) 2 cap PO DAILY [facility] Last Admin: 11/25/18 09:12 Dose: 2 cap [place] Carbonate (Eskalith Cr) 900 mg PO BEDTIME [facility] Last Admin: 11/24/18 20:05 Dose: 900 mg Mirtazapine (Remeron) 7.5 mg PO BEDTIME [facility] Last Admin: 11/24/18 20:04 Dose: 7.5 mg Ondansetron HCl (Zofran Odt) 4 mg PO Q6H PRN PRN Reason: Nausea able to take PO Last Admin: 11/25/18 10:05 Dose: 4 mg Pantoprazole Sodium (Protonix) 40 mg PO BEDTIME [facility] Last Admin: 11/24/18 20:05 Dose: 40 mg Polyethylene Glycol (Miralax) 17 gm PO DAILY [facility] Last Admin: 11/25/18 09:12 Dose: Not Given Ropinirole HCl (Requip) 1 mg PO TID [facility] Last Admin: 11/25/18 09:12 Dose: 1 mg Sertraline HCl (Zoloft) 50 mg PO BEDTIME [facility] Sodium Chloride (Saline Flush) 10 ml FLUSH ASDIRECTED PRN PRN Reason: Keep Vein Open Last Admin: 11/22/18 09:46 Dose: 10 ml Discontinued Medications Bupropion HCl (Wellbutrin Xl) 300 mg PO DAILY [facility] Last Admin: 11/23/18 08:09 Dose: 300 mg Gentamicin Sulfate (Gentamicin) 1 mg IV .Pharmacy to Dose [facility] Stop: 11/24/18 14:00 Lactated Ringer's (Ringers, Lactated) 500 mls @ 999 mls/hr IV .BOLUS [facility] Last Admin: 11/22/18 09:45 Dose: 999 mls/hr Lactated Ringer's (Ringers, Lactated) 1,000 mls @ 125 mls/hr IV ASDIRECTED [facility] Last Admin: 11/22/18 10:21 Dose: 125 mls/hr Lactated Ringer's (Ringers, Lactated) 1,000 mls @ 125 mls/hr IV ASDIRECTED [facility] Last Admin: 11/22/18 23:42 Dose: 125 mls/hr Sodium Chloride (Normal Saline) 1,000 mls @ 75 mls/hr IV ASDIRECTED [facility] Sodium Chloride (Normal Saline) 1,000 mls @ 125 mls/hr IV ASDIRECTED [facility] Gentamicin Sulfate 340 mg/ (Sodium Chloride) 108.5 mls @ 200 mls/hr IV ONETIME ONE Stop: 11/24/18 14:32 Last Admin: 11/24/18 13:56 Dose: 200 mls/hr Sodium Chloride (Normal Saline) 1,000 mls @ 125 mls/hr IV ASDIRECTED [facility] Last Admin: 11/25/18 09:54 Dose: 125 mls/hr [place] Carbonate (Eskalith Cr) 900 mg PO BEDTIME [facility] Last Admin: 11/23/18 21:58 Dose: 900 mg Bupropion 300 Mg Tab (.ErPom) 0 each PO DAILY [facility] Last Admin: 11/24/18 09:44 Dose: 1 each Sertraline 100 Mg (TabPom) 0 each PO DAILY [facility] Last Admin: 11/24/18 09:45 Dose: 1 each Pantoprazole Sodium (Protonix) 40 mg PO BEDTIME [facility] Last Admin: 11/23/18 21:59 Dose: 40 mg Mirtazapine 7.5 Mg (Tab *Pt Own Med*) 7.5 each PO BEDTIME [facility] Last Admin: 11/22/18 20:00 Dose: 7.5 each Mirtazapine 7.5 Mg (Tab Pom) 0 each PO BEDTIME [facility] Last Admin: 11/23/18 21:58 Dose: 1 each Ropinirole HCl (Requip) 1 mg PO TID [facility] Last Admin: 11/24/18 14:19 Dose: 1 mg Sertraline HCl (Zoloft) 50 mg PO DAILY [facility] Last Admin: 11/23/18 08:10 Dose: Not Given Sertraline HCl (Zoloft) 50 mg PO DAILY [facility] Last Admin: 11/25/18 09:20 Dose: Not Given Sertraline HCl (Zoloft) 100 mg PO DAILY [facility] Trimethoprim/Sulfamethoxazole (Septra Ds) 1 tab PO BID [facility] Last Admin: 11/23/18 08:09 Dose: 1 tab - Exam General: Alert, Oriented, Cooperative, Mild Distress Lungs: Clear to Auscultation, Normal Respiratory Effort Cardiovascular: Regular Rate, Regular Rhythm, No Murmurs GI/Abdominal Exam: Soft, Non-Tender, No Organomegaly, No Distention Extremities: Non-Tender, No Pedal Edema - Problem List Review Problem List Initiated/Reviewed/Updated: Yes - My Orders Last 24 Hours: My Active Orders 11/24/18 13:23 Patient Status [ADT] Routine 11/25/18 01:13 VITAMIN D,25-HYDROXY [CHEM] AM 11/25/18 11:15 Sodium Chloride 0.9% @ 75 MLS/HR(1000ml) Sodium Chloride 0.9% [Normal Saline] 1 ,000 ml IV ASDIRECTED 11/25/18 14:00 Gentamicin 400 mg Sodium Chloride 0.9% [Normal Saline] 100 ml IV Q24H 11/25/18 21:00 Sertraline [Zoloft] 50 mg PO BEDTIME 11/26/18 05:00 BASIC METABOLIC PANEL,BMP [CHEM] Timed CBC WITH AUTO DIFF [HEME] Timed - Plan Plan:: ASSESSMENT AND PLAN - Acute prostatitis - urinary symptoms with very tender prostate. Improved since yesterday with no significant temperature elevation since last night, more alert and interactive this morning. -Ciprofloxacin 400 mg IV every 12 hours -IV gentamicin, pharmacy to dose -Normal saline 75 mg IV per hour -Pain control -Follow-up urine culture Restless leg syndrome - Increase symptoms in recent days, possibly worsened by his infection. -Increase ropinirole to 1 mg 3 times a day Left ear abrasion - Small abrasion with clotted blood noted at the 6 o'clock position. Likely related to his hearing aid. -Saline drops to the ear to help keep it moist Bipolar disorder - Psychiatric illness is stable at this time. -Continue lithium and antidepressants Maintenance issues - - DVT prophylaxis - mechanical - GI prophylaxis - PPI - Nutrition - regular - Tovar catheter - not indicated CODE STATUS - full code Admission justification - patient will be referred observation status for fluids overnight and physical therapy in the morning Disposition - I would anticipate discharge to home tomorrow Primary care physician - Dr Archuleta
[2018-11-25] MEDS: Ibuprofen 600 MG Tab PO PRN ×2 (12:31→20:19)
[2018-11-25] MEDS: Gentamicin 400 MG in Sodium Chloride 0.9% 100 ML IV SCH (14:40)
[2018-11-25] MEDS: Acetaminophen 325 MG Tab PO PRN (18:38)
[2018-11-25] MEDS: Lithium Carbonate 450 MG Tab.ER PO SCH (20:11)
[2018-11-25] MEDS: Mirtazapine 15 MG Tab PO SCH (20:11)
[2018-11-25] MEDS: Pantoprazole 40 MG Tab.CR PO SCH (20:11)
[2018-11-25] MEDS: Sertraline 50 MG Tab PO SCH (20:12)
[2018-11-26] MEDS: Ciprofloxacin in D5W 400 MG in Premix Bag 1 BAG IV SCH ×4 (05:30→17:30)
[2018-11-26] MEDS: Acetaminophen 325 MG Tab PO PRN ×2 (05:32→18:50)
[2018-11-26] MEDS: Ibuprofen 600 MG Tab PO PRN ×2 (09:32→17:29)
[2018-11-26] MEDS: Lactobacillus Rhamnosus GG (Probiotic) Cap PO SCH (09:36)
[2018-11-26] MEDS: buPROPion 150 MG Tab.ER PO SCH (09:36)
[2018-11-26] MEDS: Inulin 1.5 GM Chewable Tab PO SCH ×2 (09:36→21:57)
[2018-11-26] MEDS: Polyethylene Glycol 3350 Powder 17 GM Packet PO SCH (09:36)
[2018-11-26] MEDS: Cyanocobalamin (Vitamin B12) 1,000 MCG Tab PO SCH (09:36)
[2018-11-26] MEDS: Ferrous Sulfate 325 MG Tab PO SCH (09:36)
[2018-11-26] MEDS: Cholecalciferol (Vitamin D3) 1,000 Unit Tab PO SCH (09:37)
[2018-11-26] MEDS: rOPINIRole 1 MG Tab PO SCH (09:37)
[2018-11-26] MEDS: Ondansetron 4 MG Tab.DIS PO PRN (09:52)
--- NOTE | 2018-11-26 12:10 | PCM.PN ---
- General Info Date of Service: 11/26/18 Subjective Update: Mr. Morris has remained stable since yesterday, continues to have regular fevers although temperature curve does seem to be slowly decreasing. White blood cell count remains within normal range and he denies any new symptoms. Continues to feel weak with very poor appetite. Functional Status: Reports: Ambulating, Urinating - Review of Systems General: Reports: Fever, Weakness, Chills Pulmonary: Reports: No Symptoms Cardiovascular: Reports: No Symptoms Gastrointestinal: Reports: No Symptoms - Patient Data Vitals - Most Recent: Last Vital Signs Temp 100.2 F 11/26/18 10:47 Pulse 78 11/26/18 10:47 Resp 16 11/26/18 10:47 BP 91/60 11/26/18 10:47 Pulse Ox 96 11/26/18 10:47 Weight - Most Recent: 150 lb I&O - Last 24 Hours: Intake & Output 11/25/18 11/26/18 11/26/18 22:59 06:59 14:59 Intake Total 1332 1708 480 Output Total 1000 1100 550 Balance 332 608 -70 Lab Results Last 24 Hours: Laboratory Results - last 24 hr 11/26/18 11/26/18 Range/Units 04:50 04:50 WBC 6.2 (4.5-11.0) K/uL RBC 3.53 L (4.30-5.90) M/uL Hgb 11.7 L (12.0-15.0) g/dL Hct 35.0 L (40.0-54.0) % MCV 99 H (80-98) fL MCH 33 H (27-31) pg MCHC 33 (32-36) % Plt Count 76 L (150-400) K/uL Add Manual Diff Yes Neutrophils % (Manual) 44 (36-66) % Band Neutrophils % 10 (5-11) % Lymphocytes % (Manual) 34 (24-44) % Monocytes % (Manual) 7 H (2-6) % Eosinophils % (Manual) 2 (2-4) % Metamyelocytes % 3 % Sodium 140 (140-148) mmol/L Potassium 4.1 (3.6-5.2) mmol/L Chloride 104 (100-108) mmol/L Carbon Dioxide 26 (21-32) mmol/L Anion Gap 9.6 (5.0-14.0) mmol/L BUN 13 (7-18) mg/dL Creatinine 1.4 H (0.8-1.3) mg/dL Est Cr Clr Drug Dosing 48.60 mL/min Estimated GFR (MDRD) 50 L (>60) Glucose 98 (74-106) mg/dL Calcium 9.5 (8.5-10.1) mg/dL Ad Results Last 24 Hours: Microbiology 11/22/18 08:35 Aerobic Blood Culture - Preliminary Blood - Arm, Right NO GROWTH AFTER 4 DAYS Anaerobic Blood Culture - Preliminary NO GROWTH AFTER 4 DAYS 11/22/18 08:30 Aerobic Blood Culture - Preliminary Blood - Venous - Iv Start NO GROWTH AFTER 4 DAYS Anaerobic Blood Culture - Preliminary NO GROWTH AFTER 4 DAYS Med Orders - Current: Current Medications Acetaminophen (Tylenol) 650 mg PO Q4H PRN PRN Reason: Pain (Mild 1-3)/fever Last Admin: 11/26/18 05:32 Dose: 650 mg Alprazolam (Xanax) 0.5 - 1 mg PO TID PRN PRN Reason: Anxiety Last Admin: 11/24/18 12:28 Dose: 1 mg Bupropion HCl (Wellbutrin Xl) 300 mg PO DAILY [facility] Last Admin: 11/26/18 09:36 Dose: 300 mg Cholecalciferol (Vitamin D3) 1,000 units PO DAILY [facility] Last Admin: 11/26/18 09:37 Dose: 1,000 units Cyanocobalamin (Vitamin B12) 1,000 mcg PO DAILY [facility] Last Admin: 11/26/18 09:36 Dose: 1,000 mcg Ferrous Sulfate (Ferrous Sulfate) 325 mg PO DAILY@0800 [facility] Last Admin: 11/26/18 09:36 Dose: 325 mg Ciprofloxacin/Dextrose 400 mg/ (Premix) 200 mls @ 200 mls/hr IV Q12H [facility] Last Admin: 11/26/18 05:30 Dose: 200 mls/hr Gentamicin Sulfate 400 mg/ (Sodium Chloride) 110 mls @ 202.765 mls/hr IV Q24H [facility] Last Admin: 11/25/18 14:40 Dose: 202.765 mls/hr Sodium Chloride (Normal Saline) 1,000 mls @ 75 mls/hr IV ASDIRECTED [facility] Last Admin: 11/25/18 23:30 Dose: 75 mls/hr Ibuprofen (Motrin) 600 mg PO Q6H PRN PRN Reason: Fever Last Admin: 11/26/18 09:32 Dose: 600 mg Inulin (Fiber Choice) 4.5 gm PO BID [facility] Last Admin: 11/26/18 09:36 Dose: 4.5 gm Lactobacillus Rhamnosus (Culturelle) 2 cap PO DAILY [facility] Last Admin: 11/26/18 09:36 Dose: 2 cap [place] Carbonate (Eskalith Cr) 900 mg PO BEDTIME [facility] Last Admin: 11/25/18 20:11 Dose: 900 mg Mirtazapine (Remeron) 7.5 mg PO BEDTIME [facility] Last Admin: 11/25/18 20:11 Dose: 7.5 mg Ondansetron HCl (Zofran Odt) 4 mg PO Q6H PRN PRN Reason: Nausea able to take PO Last Admin: 11/26/18 09:52 Dose: 4 mg Pantoprazole Sodium (Protonix) 40 mg PO BEDTIME [facility] Last Admin: 11/25/18 20:11 Dose: 40 mg Polyethylene Glycol (Miralax) 17 gm PO DAILY [facility] Last Admin: 11/26/18 09:36 Dose: 17 gm Ropinirole HCl (Requip) 1 mg PO TID [facility] Last Admin: 11/26/18 09:37 Dose: 1 mg Sertraline HCl (Zoloft) 50 mg PO BEDTIME [facility] Last Admin: 11/25/18 20:12 Dose: 50 mg Sodium Chloride (Saline Flush) 10 ml FLUSH ASDIRECTED PRN PRN Reason: Keep Vein Open Last Admin: 11/22/18 09:46 Dose: 10 ml Discontinued Medications Bupropion HCl (Wellbutrin Xl) 300 mg PO DAILY [facility] Last Admin: 11/23/18 08:09 Dose: 300 mg Gentamicin Sulfate (Gentamicin) 1 mg IV .Pharmacy to Dose [facility] Stop: 11/24/18 14:00 Lactated Ringer's (Ringers, Lactated) 500 mls @ 999 mls/hr IV .BOLUS [facility] Last Admin: 11/22/18 09:45 Dose: 999 mls/hr Lactated Ringer's (Ringers, Lactated) 1,000 mls @ 125 mls/hr IV ASDIRECTED [facility] Last Admin: 11/22/18 10:21 Dose: 125 mls/hr Lactated Ringer's (Ringers, Lactated) 1,000 mls @ 125 mls/hr IV ASDIRECTED [facility] Last Admin: 11/22/18 23:42 Dose: 125 mls/hr Sodium Chloride (Normal Saline) 1,000 mls @ 75 mls/hr IV ASDIRECTED [facility] Sodium Chloride (Normal Saline) 1,000 mls @ 125 mls/hr IV ASDIRECTED [facility] Gentamicin Sulfate 340 mg/ (Sodium Chloride) 108.5 mls @ 200 mls/hr IV ONETIME ONE Stop: 11/24/18 14:32 Last Admin: 11/24/18 13:56 Dose: 200 mls/hr Sodium Chloride (Normal Saline) 1,000 mls @ 125 mls/hr IV ASDIRECTED [facility] Last Admin: 11/25/18 09:54 Dose: 125 mls/hr [place] Carbonate (Eskalith Cr) 900 mg PO BEDTIME [facility] Last Admin: 11/23/18 21:58 Dose: 900 mg Bupropion 300 Mg Tab (.ErPom) 0 each PO DAILY [facility] Last Admin: 11/24/18 09:44 Dose: 1 each Sertraline 100 Mg (TabPom) 0 each PO DAILY [facility] Last Admin: 11/24/18 09:45 Dose: 1 each Pantoprazole Sodium (Protonix) 40 mg PO BEDTIME [facility] Last Admin: 11/23/18 21:59 Dose: 40 mg Mirtazapine 7.5 Mg (Tab *Pt Own Med*) 7.5 each PO BEDTIME [facility] Last Admin: 11/22/18 20:00 Dose: 7.5 each Mirtazapine 7.5 Mg (Tab Pom) 0 each PO BEDTIME [facility] Last Admin: 11/23/18 21:58 Dose: 1 each Ropinirole HCl (Requip) 1 mg PO TID [facility] Last Admin: 11/24/18 14:19 Dose: 1 mg Sertraline HCl (Zoloft) 50 mg PO DAILY [facility] Last Admin: 11/23/18 08:10 Dose: Not Given Sertraline HCl (Zoloft) 50 mg PO DAILY [facility] Last Admin: 11/25/18 09:20 Dose: Not Given Sertraline HCl (Zoloft) 100 mg PO DAILY [facility] Trimethoprim/Sulfamethoxazole (Septra Ds) 1 tab PO BID [facility] Last Admin: 11/23/18 08:09 Dose: 1 tab - Exam Quality Assessment: DVT Prophylaxis General: Alert, Oriented, Cooperative, Mild Distress Lungs: Clear to Auscultation, Normal Respiratory Effort Cardiovascular: Regular Rate, Regular Rhythm, No Murmurs GI/Abdominal Exam: Soft, Non-Tender, No Organomegaly, No Distention Extremities: Non-Tender, No Pedal Edema - Problem List Review Problem List Initiated/Reviewed/Updated: Yes - My Orders Last 24 Hours: My Active Orders 11/25/18 11:15 Sodium Chloride 0.9% [Normal Saline] 1,000 ml IV ASDIRECTED 11/25/18 14:00 Gentamicin 400 mg Sodium Chloride 0.9% [Normal Saline] 100 ml IV Q24H 11/25/18 21:00 Sertraline [Zoloft] 50 mg PO BEDTIME 11/26/18 12:07 Abdomen Pelvis w Cont [CT] Stat 11/27/18 05:00 BASIC METABOLIC PANEL,BMP [CHEM] Timed CBC WITH AUTO DIFF [HEME] Timed - Plan Plan:: ASSESSMENT AND PLAN - Acute prostatitis - urinary symptoms with very tender prostate. Continued slow improvement, white blood cell count remains normal and fever curve slowly decreasing -Ciprofloxacin 400 mg IV every 12 hours -IV gentamicin, pharmacy to dose -Normal saline 75 mg IV per hour -Pain control -Follow-up urine culture -CT scan abdomen and pelvis to evaluate for other source of infection and/or abscess Restless leg syndrome - Increase symptoms in recent days, possibly worsened by his infection. -ropinirole 0.5mg by mouth twice daily Bipolar disorder - Psychiatric illness is stable at this time. -Continue lithium and antidepressants Maintenance issues - DVT prophylaxis - mechanical - GI prophylaxis - PPI - Nutrition - regular - Tovar catheter - not indicated CODE STATUS - full code Admission justification - patient will be referred observation status for fluids overnight and physical therapy in the morning Disposition - I would anticipate discharge to home tomorrow Primary care physician - Dr Archuleta
[2018-11-26] MEDS: Sodium Chloride 0.9% 1,000 ML IV SCH (13:25)
[2018-11-26] MEDS: Gentamicin 400 MG in Sodium Chloride 0.9% 100 ML IV SCH (13:28)
[2018-11-26] MEDS ORDERED: Sodium Chloride 0.9% 10 ML Syringe FLUSH PRN (13:41)
[2018-11-26] MEDS ORDERED: Sodium Chloride 0.9% 71 ML IV ONE (13:41)
[2018-11-26] MEDS ORDERED: Iopamidol 612 MG/ML 100 ML Bottle IV PRN (13:41)
--- NOTE | 2018-11-26 14:56 | CRLCT ---
INDICATION: Prostatitis. Persistent fever. TECHNIQUE: CT abdomen and pelvis acquired with 100 cc Isovue-300 IV contrast. COMPARISON: July 23, 2018 FINDINGS: Lower chest: Unremarkable. Liver: Unremarkable. Normal in size and attenuation. No masses. Gallbladder and bile ducts: Status post cholecystectomy. Pancreas: Unremarkable. No mass or inflammation. Spleen: Unremarkable. Normal in size. No masses. Adrenal glands: Unremarkable. No nodules. Kidneys: Stable right renal scarring and few small benign-appearing cysts. Kidneys are otherwise unremarkable. No signs of pyelonephritis. GI tract: Stable postoperative changes about the GE junction. Normal in caliber. No sign of mass or inflammation. Normal appendix. Vasculature: Unremarkable. Mesenteric arteries are patent. Lymph nodes: No lymphadenopathy. Omentum/Peritoneum/Abdominal Wall: Unremarkable. No sign of mass or infiltration. No free air or significant free fluid. Pelvis: Prostate gland and urinary bladder appear unremarkable. No signs of mass or inflammation in the pelvis. Bones: Unremarkable for age. IMPRESSION: No acute or significant findings and no change from the prior exam. Specifically the prostate gland appears normal in size and appearance and there are no findings to explain fever. Dictated by Larry Montaño MD @ 11/26/2018 2:55:57 PM Please note that all CT scans at this facility use dose modulation, iterative reconstruction, and/or weight-based dosing when appropriate to reduce radiation dose to as low as reasonably achievable. Dictated by: Larry Montaño MD @ 11/26/2018 14:56:07 (Electronically Signed)
[2018-11-26] MEDS: Mirtazapine 15 MG Tab PO SCH (21:57)
[2018-11-26] MEDS: Sertraline 50 MG Tab PO SCH (21:57)
[2018-11-26] MEDS: Pantoprazole 40 MG Tab.CR PO SCH (21:57)
[2018-11-26] MEDS: Tamsulosin 0.4 MG Cap.ER PO SCH (21:57)
[2018-11-26] MEDS: rOPINIRole 0.5 MG Tab PO SCH (21:57)
[2018-11-26] MEDS: Lithium Carbonate 450 MG Tab.ER PO SCH (21:57)
[2018-11-27] MEDS: Calcium Carbonate 500 MG Tab.Chew PO PRN (01:13)
[2018-11-27] MEDS: Acetaminophen 325 MG Tab PO PRN ×2 (02:13→12:26)
[2018-11-27] MEDS: Ibuprofen 600 MG Tab PO PRN ×3 (03:36→20:11)
[2018-11-27] MEDS: Sodium Chloride 0.9% 1,000 ML IV SCH (03:37)
[2018-11-27] MEDS: Ciprofloxacin in D5W 400 MG in Premix Bag 1 BAG IV SCH ×2 (05:42)
[2018-11-27] MEDS: Ferrous Sulfate 325 MG Tab PO SCH (07:48)
[2018-11-27] MEDS ORDERED: Sodium Chloride 0.9% 1,000 ML IV SCH (08:15)
[2018-11-27] MEDS: Inulin 1.5 GM Chewable Tab PO SCH ×2 (08:41→20:13)
[2018-11-27] MEDS: Lactobacillus Rhamnosus GG (Probiotic) Cap PO SCH (08:41)
[2018-11-27] MEDS: Cholecalciferol (Vitamin D3) 1,000 Unit Tab PO SCH (08:42)
[2018-11-27] MEDS: buPROPion 150 MG Tab.ER PO SCH (08:42)
[2018-11-27] MEDS: Polyethylene Glycol 3350 Powder 17 GM Packet PO SCH (08:42)
[2018-11-27] MEDS: rOPINIRole 0.5 MG Tab PO SCH ×2 (08:42→20:13)
[2018-11-27] MEDS: Cyanocobalamin (Vitamin B12) 1,000 MCG Tab PO SCH (08:42)
[2018-11-27] MEDS ORDERED: Potassium Chloride 20 MEQ Tab.ER PO ONE ×2 (08:45→17:00)
[2018-11-27] MEDS: Aluminum Hydroxide/Magnesium Hydroxide/Simethicone Susp 30 ML Cup PO PRN (09:27)
[2018-11-27] MEDS: Doxycycline 100 MG in Sodium Chloride 0.9% 100 ML IV SCH (12:11)
--- NOTE | 2018-11-27 13:06 | PCM.PN ---
- General Info Date of Service: 11/27/18 Subjective Update: Unfortunately Mr. Morris has continued to experience significant temperature elevations and over the past few days his developed leukopenia as well as thrombocytopenia. Evaluation has otherwise been negative for any other obvious source of infection including CT scan of the abdomen and pelvis which was performed yesterday. Less likely that his fever secondary to prostatitis, prostate gland appeared to be normal on CT scan. With the development of leukopenia and thrombocytopenia appears more likely that there may be other underlying infection, probable anaplasmosis. I discussed all of this with the patient and family we will plan to stop current antibiotics and switched IV doxycycline. Functional Status: Reports: Ambulating, Urinating - Review of Systems General: Reports: Fever, Weakness, Chills Pulmonary: Reports: No Symptoms Cardiovascular: Reports: No Symptoms Gastrointestinal: Reports: No Symptoms Genitourinary: Reports: Incontinence. Denies: Frequency, Burning, Pain, Hematuria - Patient Data Vitals - Most Recent: Last Vital Signs Temp 99.9 F 11/27/18 12:26 Pulse 72 11/27/18 11:00 Resp 17 11/27/18 11:00 BP 109/61 11/27/18 11:00 Pulse Ox 94 L 11/27/18 11:00 Weight - Most Recent: 150 lb I&O - Last 24 Hours: Intake & Output 11/26/18 11/27/18 11/27/18 22:59 06:59 14:59 Intake Total 2050 1444 360 Output Total 250 1000 200 Balance 1800 444 160 Lab Results Last 24 Hours: Laboratory Results - last 24 hr 11/27/18 11/27/18 11/27/18 Range/Units 04:30 04:35 04:35 WBC 3.8 L (4.5-11.0) K/uL RBC 3.13 L (4.30-5.90) M/uL Hgb 10.1 L (12.0-15.0) g/dL Hct 31.0 L (40.0-54.0) % MCV 99 H (80-98) fL MCH 32 H (27-31) pg MCHC 33 (32-36) % Plt Count 62 L (150-400) K/uL Add Manual Diff Yes Neutrophils % (Manual) 33 L (36-66) % Band Neutrophils % 8 (5-11) % Lymphocytes % (Manual) 49 H (24-44) % Monocytes % (Manual) 8 H (2-6) % Eosinophils % (Manual) 2 (2-4) % Sodium 139 L (140-148) mmol/L Potassium 3.5 L (3.6-5.2) mmol/L Chloride 105 (100-108) mmol/L Carbon Dioxide 23 (21-32) mmol/L Anion Gap 14.5 H (5.0-14.0) mmol/L BUN 19 H (7-18) mg/dL Creatinine 1.5 H (0.8-1.3) mg/dL Est Cr Clr Drug Dosing 45.36 mL/min Estimated GFR (MDRD) 47 L (>60) Glucose 142 H (74-106) mg/dL Calcium 9.0 (8.5-10.1) mg/dL Total Bilirubin 0.2 (0.2-1.0) mg/dL Direct Bilirubin 0.09 (0.0-0.2) mg/dL Indirect Bilirubin TNP AST 36 (15-37) U/L ALT 31 (12-78) U/L Alkaline Phosphatase 71 (46-116) U/L C-Reactive Protein (0.0-0.3) mg/dL Total Protein 6.1 L (6.4-8.2) g/dL Albumin 2.8 L (3.4-5.0) g/dL Globulin 3.3 (2.3-3.5) g/dL Albumin/Globulin Ratio 0.9 L (1.2-2.2) 11/27/18 Range/Units 04:35 WBC (4.5-11.0) K/uL RBC (4.30-5.90) M/uL Hgb (12.0-15.0) g/dL Hct (40.0-54.0) % MCV (80-98) fL MCH (27-31) pg MCHC (32-36) % Plt Count (150-400) K/uL Add Manual Diff Neutrophils % (Manual) (36-66) % Band Neutrophils % (5-11) % Lymphocytes % (Manual) (24-44) % Monocytes % (Manual) (2-6) % Eosinophils % (Manual) (2-4) % Sodium (140-148) mmol/L Potassium (3.6-5.2) mmol/L Chloride (100-108) mmol/L Carbon Dioxide (21-32) mmol/L Anion Gap (5.0-14.0) mmol/L BUN (7-18) mg/dL Creatinine (0.8-1.3) mg/dL Est Cr Clr Drug Dosing mL/min Estimated GFR (MDRD) (>60) Glucose (74-106) mg/dL Calcium (8.5-10.1) mg/dL Total Bilirubin (0.2-1.0) mg/dL Direct Bilirubin (0.0-0.2) mg/dL Indirect Bilirubin AST (15-37) U/L ALT (12-78) U/L Alkaline Phosphatase (46-116) U/L C-Reactive Protein 6.87 H (0.0-0.3) mg/dL Total Protein (6.4-8.2) g/dL Albumin (3.4-5.0) g/dL Globulin (2.3-3.5) g/dL Albumin/Globulin Ratio (1.2-2.2) Ad Results Last 24 Hours: Microbiology 11/22/18 08:35 Aerobic Blood Culture - Final Blood - Arm, Right NO GROWTH AFTER 5 DAYS Anaerobic Blood Culture - Final NO GROWTH AFTER 5 DAYS 11/22/18 08:30 Aerobic Blood Culture - Final Blood - Venous - Iv Start NO GROWTH AFTER 5 DAYS Anaerobic Blood Culture - Final NO GROWTH AFTER 5 DAYS Med Orders - Current: Current Medications Acetaminophen (Tylenol) 650 mg PO Q4H PRN PRN Reason: Pain (Mild 1-3)/fever Last Admin: 11/27/18 12:26 Dose: 650 mg Al Hydroxide/Mg Hydroxide (Mag-Al Plus) 30 ml PO Q4H PRN PRN Reason: Heartburn Last Admin: 11/27/18 09:27 Dose: 30 ml Alprazolam (Xanax) 0.5 - 1 mg PO TID PRN PRN Reason: Anxiety Last Admin: 11/24/18 12:28 Dose: 1 mg Bupropion HCl (Wellbutrin Xl) 300 mg PO DAILY [facility] Last Admin: 11/27/18 08:42 Dose: 300 mg Calcium Carbonate/Glycine (Tums) 1,000 mg PO Q2H PRN PRN Reason: Indigestion Last Admin: 11/27/18 01:13 Dose: 1,000 mg Cholecalciferol (Vitamin D3) 1,000 units PO DAILY [facility] Last Admin: 11/27/18 08:42 Dose: 1,000 units Cyanocobalamin (Vitamin B12) 1,000 mcg PO DAILY [facility] Last Admin: 11/27/18 08:42 Dose: 1,000 mcg Ferrous Sulfate (Ferrous Sulfate) 325 mg PO DAILY@0800 [facility] Last Admin: 11/27/18 07:48 Dose: 325 mg Sodium Chloride (Normal Saline) 1,000 mls @ 75 mls/hr IV ASDIRECTED [facility] Last Admin: 11/27/18 03:37 Dose: 75 mls/hr Sodium Chloride (Normal Saline) 1,000 mls @ 500 mls/hr IV ASDIRECTED [facility] Last Admin: 11/27/18 09:05 Dose: 500 mls/hr Doxycycline Hyclate 100 mg/ (Sodium Chloride) 100 mls @ 100 mls/hr IV Q12H [facility] Last Admin: 11/27/18 12:11 Dose: 100 mls/hr Ibuprofen (Motrin) 600 mg PO Q6H PRN PRN Reason: Fever Last Admin: 11/27/18 03:36 Dose: 600 mg Inulin (Fiber Choice) 4.5 gm PO BID [facility] Last Admin: 11/27/18 08:41 Dose: 4.5 gm Lactobacillus Rhamnosus (Culturelle) 2 cap PO DAILY [facility] Last Admin: 11/27/18 08:41 Dose: 2 cap [place] Carbonate (Eskalith Cr) 900 mg PO BEDTIME [facility] Last Admin: 11/26/18 21:57 Dose: 900 mg Mirtazapine (Remeron) 7.5 mg PO BEDTIME [facility] Last Admin: 11/26/18 21:57 Dose: 7.5 mg Ondansetron HCl (Zofran Odt) 4 mg PO Q6H PRN PRN Reason: Nausea able to take PO Last Admin: 11/26/18 09:52 Dose: 4 mg Pantoprazole Sodium (Protonix) 40 mg PO BEDTIME [facility] Last Admin: 11/26/18 21:57 Dose: 40 mg Polyethylene Glycol (Miralax) 17 gm PO DAILY [facility] Last Admin: 11/27/18 08:42 Dose: 17 gm Potassium Chloride (Klor-Con M20) 40 meq PO ONETIME ONE Stop: 11/27/18 17:01 Ropinirole HCl (Requip) 0.5 mg PO BID [facility] Last Admin: 11/27/18 08:42 Dose: 0.5 mg Sertraline HCl (Zoloft) 50 mg PO BEDTIME [facility] Last Admin: 11/26/18 21:57 Dose: 50 mg Sodium Chloride (Saline Flush) 10 ml FLUSH ASDIRECTED PRN PRN Reason: Keep Vein Open Last Admin: 11/22/18 09:46 Dose: 10 ml Tamsulosin HCl (Flomax) 0.4 mg PO BEDTIME [facility] Last Admin: 11/26/18 21:57 Dose: 0.4 mg Discontinued Medications Bupropion HCl (Wellbutrin Xl) 300 mg PO DAILY [facility] Last Admin: 11/23/18 08:09 Dose: 300 mg Gentamicin Sulfate (Gentamicin) 1 mg IV .Pharmacy to Dose [facility] Stop: 11/24/18 14:00 Lactated Ringer's (Ringers, Lactated) 500 mls @ 999 mls/hr IV .BOLUS [facility] Last Admin: 11/22/18 09:45 Dose: 999 mls/hr Lactated Ringer's (Ringers, Lactated) 1,000 mls @ 125 mls/hr IV ASDIRECTED [facility] Last Admin: 11/22/18 10:21 Dose: 125 mls/hr Lactated Ringer's (Ringers, Lactated) 1,000 mls @ 125 mls/hr IV ASDIRECTED [facility] Last Admin: 11/22/18 23:42 Dose: 125 mls/hr Ciprofloxacin/Dextrose 400 mg/ (Premix) 200 mls @ 200 mls/hr IV Q12H [facility] Last Admin: 11/27/18 05:42 Dose: 200 mls/hr Sodium Chloride (Normal Saline) 1,000 mls @ 75 mls/hr IV ASDIRECTED [facility] Sodium Chloride (Normal Saline) 1,000 mls @ 125 mls/hr IV ASDIRECTED [facility] Gentamicin Sulfate 340 mg/ (Sodium Chloride) 108.5 mls @ 200 mls/hr IV ONETIME ONE Stop: 11/24/18 14:32 Last Admin: 11/24/18 13:56 Dose: 200 mls/hr Sodium Chloride (Normal Saline) 1,000 mls @ 125 mls/hr IV ASDIRECTED [facility] Last Admin: 11/25/18 09:54 Dose: 125 mls/hr Gentamicin Sulfate 400 mg/ (Sodium Chloride) 110 mls @ 202.765 mls/hr IV Q24H [facility] Last Admin: 11/26/18 13:28 Dose: 202.765 mls/hr Sodium Chloride (Normal Saline) 71 mls @ 3 mls/sec IV ONETIME ONE Stop: 11/26/18 13:42 Last Admin: 11/26/18 14:26 Dose: 3 mls/sec Iopamidol (Isovue-300 (61%)) 100 ml IV . DIRECTED PRN PRN Reason: RADIOLOGY EXAM Stop: 11/26/18 16:00 Last Admin: 11/26/18 14:26 Dose: 100 ml [place] Carbonate (Eskalith Cr) 900 mg PO BEDTIME [facility] Last Admin: 11/23/18 21:58 Dose: 900 mg Bupropion 300 Mg Tab (.ErPom) 0 each PO DAILY [facility] Last Admin: 11/24/18 09:44 Dose: 1 each Sertraline 100 Mg (TabPom) 0 each PO DAILY [facility] Last Admin: 11/24/18 09:45 Dose: 1 each Pantoprazole Sodium (Protonix) 40 mg PO BEDTIME [facility] Last Admin: 11/23/18 21:59 Dose: 40 mg Mirtazapine 7.5 Mg (Tab *Pt Own Med*) 7.5 each PO BEDTIME [facility] Last Admin: 11/22/18 20:00 Dose: 7.5 each Mirtazapine 7.5 Mg (Tab Pom) 0 each PO BEDTIME [facility] Last Admin: 11/23/18 21:58 Dose: 1 each Potassium Chloride (Klor-Con M20) 40 meq PO ONETIME ONE Stop: 11/27/18 08:46 Last Admin: 11/27/18 08:41 Dose: 40 meq Ropinirole HCl (Requip) 1 mg PO TID [facility] Last Admin: 11/24/18 14:19 Dose: 1 mg Ropinirole HCl (Requip) 1 mg PO TID [facility] Last Admin: 11/26/18 09:37 Dose: 1 mg Sertraline HCl (Zoloft) 50 mg PO DAILY [facility] Last Admin: 11/23/18 08:10 Dose: Not Given Sertraline HCl (Zoloft) 50 mg PO DAILY [facility] Last Admin: 11/25/18 09:20 Dose: Not Given Sertraline HCl (Zoloft) 100 mg PO DAILY [facility] Sodium Chloride (Saline Flush) 10 ml FLUSH ONETIME PRN PRN Reason: PER RADIOLOGY PROTOCOL Stop: 11/26/18 16:00 Last Admin: 11/26/18 14:26 Dose: 10 ml Trimethoprim/Sulfamethoxazole (Septra Ds) 1 tab PO BID [facility] Last Admin: 11/23/18 08:09 Dose: 1 tab - Exam Quality Assessment: DVT Prophylaxis General: Alert, Oriented, Cooperative, Mild Distress Lungs: Clear to Auscultation, Normal Respiratory Effort Cardiovascular: Regular Rate, Regular Rhythm, No Murmurs GI/Abdominal Exam: Soft, Non-Tender, No Organomegaly, No Distention Extremities: Non-Tender, No Pedal Edema - Problem List Review Problem List Initiated/Reviewed/Updated: Yes - My Orders Last 24 Hours: My Active Orders 11/26/18 12:17 Daily Weight [Height and Weight] [RC] DAILY 11/26/18 21:00 Tamsulosin [Flomax] 0.4 mg PO BEDTIME rOPINIRole [Requip] 0.5 mg PO BID 11/27/18 00:53 Calcium Carbonate [Tums] 1,000 mg PO Q2H PRN 11/27/18 04:45 HUMAN GRANULOCYTIC PEGGY-HGE Routine 11/27/18 08:15 Sodium Chloride 0.9% [Normal Saline] 1,000 ml IV ASDIRECTED 11/27/18 08:47 Alum Hydrox/Mag Hydrox/Simeth [Mag-Al Plus] 30 ml PO Q4H PRN 11/27/18 12:00 Doxycycline [Vibramycin] 100 mg Sodium Chloride 0.9% [Normal Saline] 100 ml IV Q12H 11/27/18 12:13 LYME, TOTAL AB TEST/REFLEX Routine 11/27/18 17:00 Potassium Chloride [Klor-Con M20] 40 meq PO ONETIME ONE 11/28/18 05:00 BASIC METABOLIC PANEL,BMP [CHEM] Timed CBC WITH AUTO DIFF [HEME] Timed - Plan Plan:: ASSESSMENT AND PLAN - 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 On reassessment appears more likely that he may have a tickborne illness, specifically anaplasmosis. He is now leukopenic with associated thrombocytopenia. Cultures have remained negative and he is had persistent temperature elevations. -Discontinue IV ciprofloxacin and gentamicin -Doxycycline 100 mg IV every 12 hours -Serology for Lyme disease and anaplasmosis pending -Normal saline 75 mg IV per hour -Pain control Restless leg syndrome - Increase symptoms in recent days, possibly worsened by his infection. -ropinirole 0.5mg by mouth twice daily Bipolar disorder - Psychiatric illness is stable at this time. -Continue lithium and antidepressants Maintenance issues - DVT prophylaxis - mechanical - GI prophylaxis - PPI - Nutrition - regular - Tovar catheter - not indicated CODE STATUS - full code Admission justification - patient will be referred observation status for fluids overnight and physical therapy in the morning Disposition - I would anticipate discharge to home tomorrow Primary care physician - Dr Archuleta
[2018-11-27] MEDS: Lithium Carbonate 450 MG Tab.ER PO SCH (20:12)
[2018-11-27] MEDS: Mirtazapine 15 MG Tab PO SCH (20:12)
[2018-11-27] MEDS: Pantoprazole 40 MG Tab.CR PO SCH (20:13)
[2018-11-27] MEDS: Tamsulosin 0.4 MG Cap.ER PO SCH (20:14)
[2018-11-27] MEDS: Sertraline 50 MG Tab PO SCH (20:14)
[2018-11-28] MEDS: Doxycycline 100 MG in Sodium Chloride 0.9% 100 ML IV SCH ×2 (00:23→11:29)
[2018-11-28] MEDS: Sodium Chloride 0.9% 1,000 ML IV SCH (00:26)
[2018-11-28] MEDS: Ibuprofen 600 MG Tab PO PRN ×2 (05:30→15:02)
[2018-11-28] MEDS: Ferrous Sulfate 325 MG Tab PO SCH (07:47)
[2018-11-28] MEDS: rOPINIRole 0.5 MG Tab PO SCH ×3 (08:18→23:15)
[2018-11-28] MEDS: Polyethylene Glycol 3350 Powder 17 GM Packet PO SCH (08:18)
[2018-11-28] MEDS: Cyanocobalamin (Vitamin B12) 1,000 MCG Tab PO SCH (08:18)
[2018-11-28] MEDS: Lactobacillus Rhamnosus GG (Probiotic) Cap PO SCH (08:18)
[2018-11-28] MEDS: Cholecalciferol (Vitamin D3) 1,000 Unit Tab PO SCH (08:18)
[2018-11-28] MEDS: Inulin 1.5 GM Chewable Tab PO SCH ×2 (08:18→20:00)
[2018-11-28] MEDS: buPROPion 150 MG Tab.ER PO SCH (08:19)
[2018-11-28] MEDS: Aluminum Hydroxide/Magnesium Hydroxide/Simethicone Susp 30 ML Cup PO PRN (10:10)
--- NOTE | 2018-11-28 10:41 | PCM.PN ---
- General Info Date of Service: 11/28/18 Subjective Update: Mr. Morris has been stable since yesterday, he did have more mild temperature elevation during the last 24 hours but not as high as the previous day. He feels stronger and has been able to walk and move about fairly independently. Appetite seems to be improving over the last 24 hours. Functional Status: Reports: Tolerating Diet, Ambulating, Urinating - Review of Systems General: Reports: Fever, Weakness, Chills Pulmonary: Reports: No Symptoms Cardiovascular: Reports: No Symptoms Gastrointestinal: Reports: No Symptoms - Patient Data Vitals - Most Recent: Last Vital Signs Temp 98.3 F 11/28/18 10:37 Pulse 76 11/28/18 10:37 Resp 16 11/28/18 10:37 BP 87/59 L 11/28/18 10:37 Pulse Ox 99 11/28/18 10:37 Weight - Most Recent: 150 lb I&O - Last 24 Hours: Intake & Output 11/27/18 11/28/18 11/28/18 22:59 06:59 14:59 Intake Total 1495 893 480 Output Total 1000 700 Balance 495 193 480 Lab Results Last 24 Hours: Laboratory Results - last 24 hr 11/27/18 11/28/18 11/28/18 Range/Units 04:30 05:19 05:19 WBC 3.0 L (4.5-11.0) K/uL RBC 3.07 L (4.30-5.90) M/uL Hgb 10.3 L (12.0-15.0) g/dL Hct 30.5 L (40.0-54.0) % MCV 99 H (80-98) fL MCH 34 H (27-31) pg MCHC 34 (32-36) % Plt Count 53 L (150-400) K/uL Add Manual Diff Yes Neutrophils % (Manual) 28 L (36-66) % Band Neutrophils % 2 L (5-11) % Lymphocytes % (Manual) 66 H (24-44) % Monocytes % (Manual) 4 (2-6) % Sodium 140 (140-148) mmol/L Potassium 4.0 (3.6-5.2) mmol/L Chloride 107 (100-108) mmol/L Carbon Dioxide 23 (21-32) mmol/L Anion Gap 10.4 (5.0-14.0) mmol/L BUN 19 H (7-18) mg/dL Creatinine 1.3 (0.8-1.3) mg/dL Est Cr Clr Drug Dosing 52.34 mL/min Estimated GFR (MDRD) 55 L (>60) Glucose 130 H (74-106) mg/dL Calcium 9.6 (8.5-10.1) mg/dL Total Bilirubin 0.2 (0.2-1.0) mg/dL Direct Bilirubin 0.09 (0.0-0.2) mg/dL Indirect Bilirubin TNP AST 36 (15-37) U/L ALT 31 (12-78) U/L Alkaline Phosphatase 71 (46-116) U/L Total Protein 6.1 L (6.4-8.2) g/dL Albumin 2.8 L (3.4-5.0) g/dL Globulin 3.3 (2.3-3.5) g/dL Albumin/Globulin Ratio 0.9 L (1.2-2.2) Ad Results Last 24 Hours: Microbiology 11/22/18 08:35 Aerobic Blood Culture - Final Blood - Arm, Right NO GROWTH AFTER 5 DAYS Anaerobic Blood Culture - Final NO GROWTH AFTER 5 DAYS 11/22/18 08:30 Aerobic Blood Culture - Final Blood - Venous - Iv Start NO GROWTH AFTER 5 DAYS Anaerobic Blood Culture - Final NO GROWTH AFTER 5 DAYS Med Orders - Current: Current Medications Acetaminophen (Tylenol) 650 mg PO Q4H PRN PRN Reason: Pain (Mild 1-3)/fever Last Admin: 11/27/18 12:26 Dose: 650 mg Al Hydroxide/Mg Hydroxide (Mag-Al Plus) 30 ml PO Q4H PRN PRN Reason: Heartburn Last Admin: 11/28/18 10:10 Dose: 30 ml Alprazolam (Xanax) 0.5 - 1 mg PO TID PRN PRN Reason: Anxiety Last Admin: 11/24/18 12:28 Dose: 1 mg Bupropion HCl (Wellbutrin Xl) 300 mg PO DAILY [facility] Last Admin: 11/28/18 08:19 Dose: 300 mg Calcium Carbonate/Glycine (Tums) 1,000 mg PO Q2H PRN PRN Reason: Indigestion Last Admin: 11/27/18 01:13 Dose: 1,000 mg Cholecalciferol (Vitamin D3) 1,000 units PO DAILY [facility] Last Admin: 11/28/18 08:18 Dose: 1,000 units Cyanocobalamin (Vitamin B12) 1,000 mcg PO DAILY [facility] Last Admin: 11/28/18 08:18 Dose: 1,000 mcg Ferrous Sulfate (Ferrous Sulfate) 325 mg PO DAILY@0800 [facility] Last Admin: 11/28/18 07:47 Dose: 325 mg Sodium Chloride (Normal Saline) 1,000 mls @ 75 mls/hr IV ASDIRECTED [facility] Last Admin: 11/28/18 00:26 Dose: 75 mls/hr Doxycycline Hyclate 100 mg/ (Sodium Chloride) 100 mls @ 100 mls/hr IV Q12H [facility] Last Admin: 11/28/18 00:23 Dose: 100 mls/hr Ibuprofen (Motrin) 600 mg PO Q6H PRN PRN Reason: Fever Last Admin: 11/28/18 05:30 Dose: 600 mg Inulin (Fiber Choice) 4.5 gm PO BID [facility] Last Admin: 11/28/18 08:18 Dose: 4.5 gm Lactobacillus Rhamnosus (Culturelle) 2 cap PO DAILY [facility] Last Admin: 11/28/18 08:18 Dose: 2 cap [place] Carbonate (Eskalith Cr) 900 mg PO BEDTIME [facility] Last Admin: 11/27/18 20:12 Dose: 900 mg Mirtazapine (Remeron) 7.5 mg PO BEDTIME [facility] Last Admin: 11/27/18 20:12 Dose: 7.5 mg Ondansetron HCl (Zofran Odt) 4 mg PO Q6H PRN PRN Reason: Nausea able to take PO Last Admin: 11/26/18 09:52 Dose: 4 mg Pantoprazole Sodium (Protonix) 40 mg PO BEDTIME [facility] Last Admin: 11/27/18 20:13 Dose: 40 mg Polyethylene Glycol (Miralax) 17 gm PO DAILY [facility] Last Admin: 11/28/18 08:18 Dose: 17 gm Ropinirole HCl (Requip) 0.5 mg PO BID [facility] Last Admin: 11/28/18 08:18 Dose: 0.5 mg Sertraline HCl (Zoloft) 50 mg PO BEDTIME [facility] Last Admin: 11/27/18 20:14 Dose: 50 mg Sodium Chloride (Saline Flush) 10 ml FLUSH ASDIRECTED PRN PRN Reason: Keep Vein Open Last Admin: 11/22/18 09:46 Dose: 10 ml Tamsulosin HCl (Flomax) 0.4 mg PO BEDTIME [facility] Last Admin: 11/27/18 20:14 Dose: 0.4 mg Discontinued Medications Bupropion HCl (Wellbutrin Xl) 300 mg PO DAILY [facility] Last Admin: 11/23/18 08:09 Dose: 300 mg Gentamicin Sulfate (Gentamicin) 1 mg IV .Pharmacy to Dose [facility] Stop: 11/24/18 14:00 Lactated Ringer's (Ringers, Lactated) 500 mls @ 999 mls/hr IV .BOLUS [facility] Last Admin: 11/22/18 09:45 Dose: 999 mls/hr Lactated Ringer's (Ringers, Lactated) 1,000 mls @ 125 mls/hr IV ASDIRECTED [facility] Last Admin: 11/22/18 10:21 Dose: 125 mls/hr Lactated Ringer's (Ringers, Lactated) 1,000 mls @ 125 mls/hr IV ASDIRECTED [facility] Last Admin: 11/22/18 23:42 Dose: 125 mls/hr Ciprofloxacin/Dextrose 400 mg/ (Premix) 200 mls @ 200 mls/hr IV Q12H [facility] Last Admin: 11/27/18 05:42 Dose: 200 mls/hr Sodium Chloride (Normal Saline) 1,000 mls @ 75 mls/hr IV ASDIRECTED [facility] Sodium Chloride (Normal Saline) 1,000 mls @ 125 mls/hr IV ASDIRECTED [facility] Gentamicin Sulfate 340 mg/ (Sodium Chloride) 108.5 mls @ 200 mls/hr IV ONETIME ONE Stop: 11/24/18 14:32 Last Admin: 11/24/18 13:56 Dose: 200 mls/hr Sodium Chloride (Normal Saline) 1,000 mls @ 125 mls/hr IV ASDIRECTED [facility] Last Admin: 11/25/18 09:54 Dose: 125 mls/hr Gentamicin Sulfate 400 mg/ (Sodium Chloride) 110 mls @ 202.765 mls/hr IV Q24H [facility] Last Admin: 11/26/18 13:28 Dose: 202.765 mls/hr Sodium Chloride (Normal Saline) 71 mls @ 3 mls/sec IV ONETIME ONE Stop: 11/26/18 13:42 Last Admin: 11/26/18 14:26 Dose: 3 mls/sec Sodium Chloride (Normal Saline) 1,000 mls @ 500 mls/hr IV ASDIRECTED [facility] Last Admin: 11/27/18 09:05 Dose: 500 mls/hr Iopamidol (Isovue-300 (61%)) 100 ml IV . DIRECTED PRN PRN Reason: RADIOLOGY EXAM Stop: 11/26/18 16:00 Last Admin: 11/26/18 14:26 Dose: 100 ml [place] Carbonate (Eskalith Cr) 900 mg PO BEDTIME [facility] Last Admin: 11/23/18 21:58 Dose: 900 mg Bupropion 300 Mg Tab (.ErPom) 0 each PO DAILY [facility] Last Admin: 11/24/18 09:44 Dose: 1 each Sertraline 100 Mg (TabPom) 0 each PO DAILY [facility] Last Admin: 11/24/18 09:45 Dose: 1 each Pantoprazole Sodium (Protonix) 40 mg PO BEDTIME [facility] Last Admin: 11/23/18 21:59 Dose: 40 mg Mirtazapine 7.5 Mg (Tab *Pt Own Med*) 7.5 each PO BEDTIME [facility] Last Admin: 11/22/18 20:00 Dose: 7.5 each Mirtazapine 7.5 Mg (Tab Pom) 0 each PO BEDTIME [facility] Last Admin: 11/23/18 21:58 Dose: 1 each Potassium Chloride (Klor-Con M20) 40 meq PO ONETIME ONE Stop: 11/27/18 08:46 Last Admin: 11/27/18 08:41 Dose: 40 meq Potassium Chloride (Klor-Con M20) 40 meq PO ONETIME ONE Stop: 11/27/18 17:01 Last Admin: 11/27/18 17:18 Dose: Not Given Ropinirole HCl (Requip) 1 mg PO TID [facility] Last Admin: 11/24/18 14:19 Dose: 1 mg Ropinirole HCl (Requip) 1 mg PO TID [facility] Last Admin: 11/26/18 09:37 Dose: 1 mg Sertraline HCl (Zoloft) 50 mg PO DAILY [facility] Last Admin: 11/23/18 08:10 Dose: Not Given Sertraline HCl (Zoloft) 50 mg PO DAILY [facility] Last Admin: 11/25/18 09:20 Dose: Not Given Sertraline HCl (Zoloft) 100 mg PO DAILY [facility] Sodium Chloride (Saline Flush) 10 ml FLUSH ONETIME PRN PRN Reason: PER RADIOLOGY PROTOCOL Stop: 11/26/18 16:00 Last Admin: 11/26/18 14:26 Dose: 10 ml Trimethoprim/Sulfamethoxazole (Septra Ds) 1 tab PO BID [facility] Last Admin: 11/23/18 08:09 Dose: 1 tab - Exam Quality Assessment: DVT Prophylaxis General: Alert, Oriented, Cooperative, Mild Distress Lungs: Clear to Auscultation, Normal Respiratory Effort Cardiovascular: Regular Rate, Regular Rhythm, No Murmurs GI/Abdominal Exam: Soft, Non-Tender, No Organomegaly, No Distention - Problem List Review Problem List Initiated/Reviewed/Updated: Yes - My Orders Last 24 Hours: My Active Orders 11/27/18 12:00 Doxycycline [Vibramycin] 100 mg Sodium Chloride 0.9% [Normal Saline] 100 ml IV Q12H 11/27/18 12:13 LYME, TOTAL AB TEST/REFLEX Routine - Plan Plan:: ASSESSMENT AND PLAN - 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 Overall strength improving as well as appetite -Doxycycline 100 mg IV every 12 hours -Serology for Lyme disease and anaplasmosis pending -Saline lock IV -Pain control Restless leg syndrome - Increase symptoms in recent days, possibly worsened by his infection. -ropinirole 0.5mg by mouth twice daily Bipolar disorder - Psychiatric illness is stable at this time. -Continue lithium and antidepressants Maintenance issues - DVT prophylaxis - mechanical - GI prophylaxis - PPI - Nutrition - regular - Tovar catheter - not indicated CODE STATUS - full code Admission justification - patient will be referred observation status for fluids overnight and physical therapy in the morning Disposition - I would anticipate discharge to home tomorrow Primary care physician - Dr Archuleta
[2018-11-28] MEDS: Acetaminophen 325 MG Tab PO PRN (16:24)
[2018-11-28] MEDS: Pantoprazole 40 MG Tab.CR PO SCH (20:00)
[2018-11-28] MEDS: Sertraline 50 MG Tab PO SCH (20:00)
[2018-11-28] MEDS: Lithium Carbonate 450 MG Tab.ER PO SCH (20:00)
[2018-11-28] MEDS: Mirtazapine 15 MG Tab PO SCH (20:00)
[2018-11-28] MEDS: Tamsulosin 0.4 MG Cap.ER PO SCH (20:00)
[2018-11-29] MEDS: Doxycycline 100 MG in Sodium Chloride 0.9% 100 ML IV SCH ×3 (01:03→23:29)
[2018-11-29] MEDS: Ibuprofen 600 MG Tab PO PRN (02:22)
[2018-11-29] MEDS: Acetaminophen 325 MG Tab PO PRN (02:22)
[2018-11-29] MEDS: Lactobacillus Rhamnosus GG (Probiotic) Cap PO SCH (08:47)
[2018-11-29] MEDS: rOPINIRole 0.5 MG Tab PO SCH ×3 (08:49→20:36)
[2018-11-29] MEDS: buPROPion 150 MG Tab.ER PO SCH (08:49)
[2018-11-29] MEDS: Cyanocobalamin (Vitamin B12) 1,000 MCG Tab PO SCH (08:50)
[2018-11-29] MEDS: Polyethylene Glycol 3350 Powder 17 GM Packet PO SCH (08:50)
[2018-11-29] MEDS: Ferrous Sulfate 325 MG Tab PO SCH (08:51)
[2018-11-29] MEDS: Inulin 1.5 GM Chewable Tab PO SCH ×2 (08:52→20:36)
[2018-11-29] MEDS: Cholecalciferol (Vitamin D3) 1,000 Unit Tab PO SCH (08:53)
--- NOTE | 2018-11-29 11:01 | PCM.PN ---
- General Info Date of Service: 11/29/18 Subjective Update: Mr. Morris has noted further improvement over last 24 hours, overall energy level and strength markedly improved over the past few days. Appetite has returned and he has had good oral intake. Blood pressure has continued to trend lower, he denies lightheadedness with sitting or standing. Likely that the low blood pressures secondary to current therapy with the Flomax. White blood cell count and platelet counts remain very low likely secondary to anaplasmosis. He did have mild recurrent temperature elevation yesterday to 101.5. - Review of Systems General: Reports: Fever, Chills. Denies: Weakness Pulmonary: Reports: No Symptoms Cardiovascular: Reports: No Symptoms Gastrointestinal: Reports: No Symptoms - Patient Data Vitals - Most Recent: Last Vital Signs Temp 97.7 F 11/29/18 07:57 Pulse 67 11/29/18 07:57 Resp 16 11/29/18 07:57 BP 83/54 L 11/29/18 07:57 Pulse Ox 97 11/29/18 07:57 Weight - Most Recent: 155 lb 3.2 oz I&O - Last 24 Hours: Intake & Output 11/28/18 11/29/18 11/29/18 22:59 06:59 14:59 Intake Total 237 574 Output Total 900 1750 Balance -663 -1176 Lab Results Last 24 Hours: Laboratory Results - last 24 hr 11/29/18 11/29/18 Range/Units 08:30 08:30 WBC 2.1 L (4.5-11.0) K/uL RBC 3.02 L (4.30-5.90) M/uL Hgb 10.1 L (12.0-15.0) g/dL Hct 29.7 L (40.0-54.0) % MCV 98 (80-98) fL MCH 33 H (27-31) pg MCHC 34 (32-36) % Plt Count 48 L (150-400) K/uL Add Manual Diff Yes Neutrophils % (Manual) 19 L (36-66) % Band Neutrophils % 3 L (5-11) % Lymphocytes % (Manual) 72 H (24-44) % Monocytes % (Manual) 5 (2-6) % Basophils % (Manual) 1 (0-1) % Sodium 139 L (140-148) mmol/L Potassium 3.9 (3.6-5.2) mmol/L Chloride 104 (100-108) mmol/L Carbon Dioxide 26 (21-32) mmol/L Anion Gap 12.9 (5.0-14.0) mmol/L BUN 28 H (7-18) mg/dL Creatinine 1.3 (0.8-1.3) mg/dL Est Cr Clr Drug Dosing 52.81 mL/min Estimated GFR (MDRD) 55 L (>60) Glucose 86 (74-106) mg/dL Calcium 9.3 (8.5-10.1) mg/dL Med Orders - Current: Current Medications Acetaminophen (Tylenol) 650 mg PO Q4H PRN PRN Reason: Pain (Mild 1-3)/fever Last Admin: 11/29/18 02:22 Dose: 650 mg Al Hydroxide/Mg Hydroxide (Mag-Al Plus) 30 ml PO Q4H PRN PRN Reason: Heartburn Last Admin: 11/28/18 10:10 Dose: 30 ml Alprazolam (Xanax) 0.5 - 1 mg PO TID PRN PRN Reason: Anxiety Last Admin: 11/24/18 12:28 Dose: 1 mg Bupropion HCl (Wellbutrin Xl) 300 mg PO DAILY [facility] Last Admin: 11/29/18 08:49 Dose: 300 mg Calcium Carbonate/Glycine (Tums) 1,000 mg PO Q2H PRN PRN Reason: Indigestion Last Admin: 11/27/18 01:13 Dose: 1,000 mg Cholecalciferol (Vitamin D3) 1,000 units PO DAILY [facility] Last Admin: 11/29/18 08:53 Dose: 1,000 units Cyanocobalamin (Vitamin B12) 1,000 mcg PO DAILY [facility] Last Admin: 11/29/18 08:50 Dose: 1,000 mcg Ferrous Sulfate (Ferrous Sulfate) 325 mg PO DAILY@0800 [facility] Last Admin: 11/29/18 08:51 Dose: 325 mg Doxycycline Hyclate 100 mg/ (Sodium Chloride) 100 mls @ 100 mls/hr IV Q12H [facility] Last Admin: 11/29/18 01:03 Dose: 100 mls/hr Ibuprofen (Motrin) 600 mg PO Q6H PRN PRN Reason: Fever Last Admin: 11/29/18 02:22 Dose: 600 mg Inulin (Fiber Choice) 4.5 gm PO BID [facility] Last Admin: 11/29/18 08:52 Dose: 4.5 gm Lactobacillus Rhamnosus (Culturelle) 2 cap PO DAILY [facility] Last Admin: 11/29/18 08:47 Dose: 2 cap [place] Carbonate (Eskalith Cr) 900 mg PO BEDTIME [facility] Last Admin: 11/28/18 20:00 Dose: 900 mg Mirtazapine (Remeron) 7.5 mg PO BEDTIME [facility] Last Admin: 11/28/18 20:00 Dose: 7.5 mg Ondansetron HCl (Zofran Odt) 4 mg PO Q6H PRN PRN Reason: Nausea able to take PO Last Admin: 11/26/18 09:52 Dose: 4 mg Pantoprazole Sodium (Protonix) 40 mg PO BEDTIME [facility] Last Admin: 11/28/18 20:00 Dose: 40 mg Polyethylene Glycol (Miralax) 17 gm PO DAILY [facility] Last Admin: 11/29/18 08:50 Dose: 17 gm Ropinirole HCl (Requip) 0.5 mg PO TID [facility] Last Admin: 11/29/18 08:49 Dose: 0.5 mg Sertraline HCl (Zoloft) 50 mg PO BEDTIME [facility] Last Admin: 11/28/18 20:00 Dose: 50 mg Sodium Chloride (Saline Flush) 10 ml FLUSH ASDIRECTED PRN PRN Reason: Keep Vein Open Last Admin: 11/22/18 09:46 Dose: 10 ml Discontinued Medications Bupropion HCl (Wellbutrin Xl) 300 mg PO DAILY [facility] Last Admin: 11/23/18 08:09 Dose: 300 mg Gentamicin Sulfate (Gentamicin) 1 mg IV .Pharmacy to Dose [facility] Stop: 11/24/18 14:00 Lactated Ringer's (Ringers, Lactated) 500 mls @ 999 mls/hr IV .BOLUS [facility] Last Admin: 11/22/18 09:45 Dose: 999 mls/hr Lactated Ringer's (Ringers, Lactated) 1,000 mls @ 125 mls/hr IV ASDIRECTED [facility] Last Admin: 11/22/18 10:21 Dose: 125 mls/hr Lactated Ringer's (Ringers, Lactated) 1,000 mls @ 125 mls/hr IV ASDIRECTED [facility] Last Admin: 11/22/18 23:42 Dose: 125 mls/hr Ciprofloxacin/Dextrose 400 mg/ (Premix) 200 mls @ 200 mls/hr IV Q12H [facility] Last Admin: 11/27/18 05:42 Dose: 200 mls/hr Sodium Chloride (Normal Saline) 1,000 mls @ 75 mls/hr IV ASDIRECTED [facility] Sodium Chloride (Normal Saline) 1,000 mls @ 125 mls/hr IV ASDIRECTED [facility] Gentamicin Sulfate 340 mg/ (Sodium Chloride) 108.5 mls @ 200 mls/hr IV ONETIME ONE Stop: 11/24/18 14:32 Last Admin: 11/24/18 13:56 Dose: 200 mls/hr Sodium Chloride (Normal Saline) 1,000 mls @ 125 mls/hr IV ASDIRECTED [facility] Last Admin: 11/25/18 09:54 Dose: 125 mls/hr Gentamicin Sulfate 400 mg/ (Sodium Chloride) 110 mls @ 202.765 mls/hr IV Q24H [facility] Last Admin: 11/26/18 13:28 Dose: 202.765 mls/hr Sodium Chloride (Normal Saline) 1,000 mls @ 75 mls/hr IV ASDIRECTED [facility] Last Admin: 11/28/18 00:26 Dose: 75 mls/hr Sodium Chloride (Normal Saline) 71 mls @ 3 mls/sec IV ONETIME ONE Stop: 11/26/18 13:42 Last Admin: 11/26/18 14:26 Dose: 3 mls/sec Sodium Chloride (Normal Saline) 1,000 mls @ 500 mls/hr IV ASDIRECTED [facility] Last Admin: 11/27/18 09:05 Dose: 500 mls/hr Iopamidol (Isovue-300 (61%)) 100 ml IV . DIRECTED PRN PRN Reason: RADIOLOGY EXAM Stop: 11/26/18 16:00 Last Admin: 11/26/18 14:26 Dose: 100 ml [place] Carbonate (Eskalith Cr) 900 mg PO BEDTIME [facility] Last Admin: 11/23/18 21:58 Dose: 900 mg Bupropion 300 Mg Tab (.ErPom) 0 each PO DAILY [facility] Last Admin: 11/24/18 09:44 Dose: 1 each Sertraline 100 Mg (TabPom) 0 each PO DAILY [facility] Last Admin: 11/24/18 09:45 Dose: 1 each Pantoprazole Sodium (Protonix) 40 mg PO BEDTIME [facility] Last Admin: 11/23/18 21:59 Dose: 40 mg Mirtazapine 7.5 Mg (Tab *Pt Own Med*) 7.5 each PO BEDTIME [facility] Last Admin: 11/22/18 20:00 Dose: 7.5 each Mirtazapine 7.5 Mg (Tab Pom) 0 each PO BEDTIME [facility] Last Admin: 11/23/18 21:58 Dose: 1 each Potassium Chloride (Klor-Con M20) 40 meq PO ONETIME ONE Stop: 11/27/18 08:46 Last Admin: 11/27/18 08:41 Dose: 40 meq Potassium Chloride (Klor-Con M20) 40 meq PO ONETIME ONE Stop: 11/27/18 17:01 Last Admin: 11/27/18 17:18 Dose: Not Given Ropinirole HCl (Requip) 1 mg PO TID [facility] Last Admin: 11/24/18 14:19 Dose: 1 mg Ropinirole HCl (Requip) 1 mg PO TID [facility] Last Admin: 11/26/18 09:37 Dose: 1 mg Ropinirole HCl (Requip) 0.5 mg PO BID [facility] Last Admin: 11/28/18 08:18 Dose: 0.5 mg Sertraline HCl (Zoloft) 50 mg PO DAILY [facility] Last Admin: 11/23/18 08:10 Dose: Not Given Sertraline HCl (Zoloft) 50 mg PO DAILY [facility] Last Admin: 11/25/18 09:20 Dose: Not Given Sertraline HCl (Zoloft) 100 mg PO DAILY [facility] Sodium Chloride (Saline Flush) 10 ml FLUSH ONETIME PRN PRN Reason: PER RADIOLOGY PROTOCOL Stop: 11/26/18 16:00 Last Admin: 11/26/18 14:26 Dose: 10 ml Tamsulosin HCl (Flomax) 0.4 mg PO BEDTIME [facility] Last Admin: 11/28/18 20:00 Dose: 0.4 mg Trimethoprim/Sulfamethoxazole (Septra Ds) 1 tab PO BID [facility] Last Admin: 11/23/18 08:09 Dose: 1 tab - Exam Quality Assessment: DVT Prophylaxis General: Alert, Oriented, Cooperative, No Acute Distress Lungs: Clear to Auscultation, Normal Respiratory Effort Cardiovascular: Regular Rate, Regular Rhythm, No Murmurs GI/Abdominal Exam: Soft, Non-Tender, No Organomegaly, No Distention Extremities: Non-Tender, No Pedal Edema - Problem List Review Problem List Initiated/Reviewed/Updated: Yes - My Orders Last 24 Hours: My Active Orders 11/28/18 10:42 Convert IV to Saline Lock [OM.PC] Routine 11/28/18 21:00 rOPINIRole [Requip] 0.5 mg PO TID 11/30/18 05:00 BASIC METABOLIC PANEL,BMP [CHEM] Timed CBC WITH AUTO DIFF [HEME] Timed - Plan Plan:: ASSESSMENT AND PLAN - Anaplasmosis - recurrent temperature yesterday to 101.5, white blood cell count and platelet counts remained low. Overall energy level and strength have improved, with good improvement in appetite as well -Doxycycline 100 mg IV every 12 hours -Serology for Lyme disease and anaplasmosis pending -Saline lock IV Restless leg syndrome - Increase symptoms in recent days, possibly worsened by his infection. -ropinirole 0.5mg by mouth twice daily Bipolar disorder - Psychiatric illness is stable at this time. -Continue lithium and antidepressants Hypotension-likely secondary to Flomax used for BPH -Discontinue Flomax Leukopenia and thrombocytopenia-likely secondary to anaplasmosis -Recheck in a.m. BPH with urinary incontinence-improved with use of Flomax, unfortunately it appears that this is causing some hypotension -Hold Flomax Maintenance issues - DVT prophylaxis - mechanical - GI prophylaxis - PPI - Nutrition - regular - Tovar catheter - not indicated CODE STATUS - full code Admission justification - patient will be referred observation status for fluids overnight and physical therapy in the morning Disposition - I would anticipate discharge to home tomorrow Primary care physician - Dr Archuleta
[2018-11-29] MEDS: Lithium Carbonate 450 MG Tab.ER PO SCH (20:36)
[2018-11-29] MEDS: Mirtazapine 15 MG Tab PO SCH (20:36)
[2018-11-29] MEDS: Sertraline 50 MG Tab PO SCH (20:36)
[2018-11-29] MEDS: Pantoprazole 40 MG Tab.CR PO SCH (20:36)
[2018-11-30] MEDS: Ibuprofen 600 MG Tab PO PRN (01:00)
[2018-11-30] MEDS: Ferrous Sulfate 325 MG Tab PO SCH (07:50)
[2018-11-30] MEDS: Lactobacillus Rhamnosus GG (Probiotic) Cap PO SCH (08:50)
[2018-11-30] MEDS: rOPINIRole 0.5 MG Tab PO SCH (08:51)
[2018-11-30] MEDS: Cyanocobalamin (Vitamin B12) 1,000 MCG Tab PO SCH (08:52)
[2018-11-30] MEDS: Cholecalciferol (Vitamin D3) 1,000 Unit Tab PO SCH (08:52)
[2018-11-30] MEDS: Inulin 1.5 GM Chewable Tab PO SCH (08:52)
[2018-11-30] MEDS: buPROPion 150 MG Tab.ER PO SCH (08:52)
[2018-11-30] MEDS: Polyethylene Glycol 3350 Powder 17 GM Packet PO SCH (08:53)
[2018-11-30] MEDS: Calcium Carbonate 500 MG Tab.Chew PO PRN (08:58)
[2018-11-30] MEDS: Aluminum Hydroxide/Magnesium Hydroxide/Simethicone Susp 30 ML Cup PO PRN (08:58)
--- NOTE | 2018-11-30 10:12 | PCM.DCSUM1 ---
Discharge Summary - Hospital Course Brief History: 68-year-old male with history of esophageal reflux status post Audelia fundoplication, bipolar disorder who presented with fever, weakness and urinary urgency. He was admitted for management of presumed prostatitis with weakness that was profound enough to make it unsafe to be managed at home. 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 ICD Code: A77.49 - OTHER EHRLICHIOSIS Status: Acute (2) Prostatitis SNOMED Code(s): 3871031 ICD Code: N41.9 - INFLAMMATORY DISEASE OF PROSTATE, UNSPECIFIED Status: Ruled-out Qualifiers: Prostatitis type: acute Qualified Code(s): N41.0 - Acute prostatitis (3) Generalized weakness SNOMED Code(s): 39809010 ICD Code: R53.1 - WEAKNESS Status: Acute (4) Restless leg syndrome, uncontrolled SNOMED Code(s): 38695584 ICD Code: G25.81 - RESTLESS LEGS SYNDROME Status: Acute (5) Bipolar 2 disorder SNOMED Code(s): 69729872 ICD Code: F31.81 - BIPOLAR II DISORDER Status: Chronic - Patient Summary/Data Consults: Consultations 11/23/18 07:00 PT Evaluation and Treatment [CONS] Routine Please Evaluate and Treat. PT Reason for Consult: Strengthening This query below is only for informational purposes and is not editable. Labs Pending at D/C: Serology for Lyme disease and anaplasmosis Hospital Course: Alfredo presented to the emergency room with weakness and urinary urgency. Prostatitis was suspected with leukocytosis and a tender prostate. He was started on Bactrim and admitted to the hospital for gentle hydration and physical therapy. Following admission he had several large fevers. These continue despite the antibiotic treatment though they did improve slightly over the first couple of days. Early in the hospital stay he was transitioned to inpatient status from observation with his high fevers and lack of improvement throughout the hospital stay his platelets and white blood cell count both showed a trend down to the point that they were below normal. With persistent fevers and these lab trends concern arose for anaplasmosis. At this point antibiotics were changed to doxycycline. Following the initiation of the doxycycline the patient had a fairly rapid improvement. Temperature curve improved over the next several days. Strength improved fairly rapidly and his appetite improved fairly rapidly. After about 2 and half days on the antibiotics he is feeling much better. Strength is nearly back to normal. At this point he should be safe for discharge to home. Plan is for him to complete 21 days of antibiotics. Serology for Lyme disease and anaplasmosis are pending at the time of discharge but even with negative serologies I think he should be treated for the full 21 days. He does have potential tick exposures [place] as well as with pets. He will be working with outpatient physical therapy. - Patient Instructions Diet: Regular Diet as Tolerated Activity: As Tolerated Showering/Bathing: May Shower Notify Provider of: Fever, Increased Pain, Nausea and/or Vomiting Other/Special Instructions: 1. You were in the hospital for management of fever and weakness. Initially we thought you had an infection called prostatitis but during the hospital stay it became evident that you had anaplasmosis. Your condition has been improving after we switched antibiotic therapy to cover this tickborne infection. This infection is difficult to eradicate and requires a 21 day course of antibiotics. You will need to take doxycycline 100 mg twice daily for 17-1/2 more days. This antibiotic can make your skin more sensitive to the sun so you need to be sure to cover up and use plenty of sun screen when you're outside. You should take this antibiotic with food to avoid stomach upset. 2. Continue your other home medications as previously prescribed. 3. Follow up with PT and Dr Archuleta as outlined above. 4. Seek medical attention if you have fever greater than 101, persistent nausea/vomiting/diarrhea or if you develop severe abdominal pain. - Discharge Plan *PRESCRIPTION DRUG MONITORING PROGRAM REVIEWED*: Not Applicable *COPY OF PRESCRIPTION DRUG MONITORING REPORT IN PATIENT MAGAN: Not Applicable Prescriptions/Med Rec: Doxycycline Hyclate 100 mg PO BID #35 capsule Home Medications: Home Meds ALPRAZolam [Xanax] 0.5 - 1 mg PO TID PRN 07/02/13 [History] Ondansetron [Zofran] 4 mg PO Q8H PRN 07/02/13 [History] [place] Carbonate [Eskalith CR] 900 mg PO BEDTIME 04/10/18 [History] Sildenafil Citrate [Sildenafil] 100 mg PO DAILY PRN 04/14/18 [History] Polyethylene Glycol 3350 [MiraLAX] 17 gm PO DAILY 04/23/18 [History] Inulin [Fiber Choice] 4.5 gm PO BID tab.chew 04/27/18 [Rx] Cholecalciferol (Vitamin D3) [Vitamin D3] 1 cap PO DAILY 11/22/18 [History] Cyanocobalamin (Vitamin B-12) [Vitamin B-12] 1 tab PO DAILY 11/22/18 [History] Ferrous Sulfate 325 mg PO DAILY 11/22/18 [History] Lactobacillus Rhamnosus GG [Culturelle] 2 cap PO DAILY 11/22/18 [History] Mirtazapine 7.5 mg PO BEDTIME 11/22/18 [History] Pantoprazole Sodium [Protonix] 40 mg PO BEDTIME 11/22/18 [History] Sertraline HCl 50 mg PO DAILY 11/22/18 [History] buPROPion [buPROPion XL] 300 mg PO DAILY 11/22/18 [History] rOPINIRole [Requip] 0.5 mg PO TID 11/22/18 [History] Doxycycline Hyclate 100 mg PO BID #35 capsule 11/30/18 [Rx] Oxygen Therapy Mode: Room Air Patient Handouts: Doxycycline tablets or capsules, Ehrlichiosis and Anaplasmosis Referrals: Bobby Archuleta MD [Primary Care Provider] - 12/04/18 10:45 am (Please arrive 15 minutes early to register for your appointment) Ji Farfan PT [Consulting Physician] - 12/01/18 1:30 pm (Please register at the ER desk for your Physcal Therapy appointment.) - Discharge Summary/Plan Comment DC Time >30 min.: No - Patient Data Vitals - Most Recent: Last Vital Signs Temp 35.9 C 11/30/18 07:46 Pulse 61 11/30/18 07:46 Resp 16 11/30/18 07:46 BP 99/60 11/30/18 07:46 Pulse Ox 100 11/30/18 07:46 Weight - Most Recent: 70.398 kg I&O - Last 24 hours: Intake & Output 11/29/18 11/30/18 11/30/18 22:59 06:59 14:59 Intake Total 570 1500 420 Output Total 475 1200 Balance 95 300 420 Lab Results - Last 24 hrs: Laboratory Results - last 24 hr 11/30/18 11/30/18 Range/Units 04:50 04:50 WBC 2.1 L (4.5-11.0) K/uL RBC 2.89 L (4.30-5.90) M/uL Hgb 9.6 L (12.0-15.0) g/dL Hct 28.5 L (40.0-54.0) % MCV 99 H (80-98) fL MCH 33 H (27-31) pg MCHC 34 (32-36) % Plt Count 44 L (150-400) K/uL Add Manual Diff Yes Neutrophils % (Manual) 19 L (36-66) % Band Neutrophils % 1 L (5-11) % Lymphocytes % (Manual) 76 H (24-44) % Monocytes % (Manual) 4 (2-6) % Sodium 139 L (140-148) mmol/L Potassium 4.0 (3.6-5.2) mmol/L Chloride 103 (100-108) mmol/L Carbon Dioxide 28 (21-32) mmol/L Anion Gap 12.0 (5.0-14.0) mmol/L BUN 24 H (7-18) mg/dL Creatinine 1.3 (0.8-1.3) mg/dL Est Cr Clr Drug Dosing 52.81 mL/min Estimated GFR (MDRD) 55 L (>60) Glucose 93 (74-106) mg/dL Calcium 9.2 (8.5-10.1) mg/dL Med Orders - Current: Current Medications Acetaminophen (Tylenol) 650 mg PO Q4H PRN PRN Reason: Pain (Mild 1-3)/fever Last Admin: 11/29/18 02:22 Dose: 650 mg Al Hydroxide/Mg Hydroxide (Mag-Al Plus) 30 ml PO Q4H PRN PRN Reason: Heartburn Last Admin: 11/30/18 08:58 Dose: 30 ml Alprazolam (Xanax) 0.5 - 1 mg PO TID PRN PRN Reason: Anxiety Last Admin: 11/24/18 12:28 Dose: 1 mg Bupropion HCl (Wellbutrin Xl) 300 mg PO DAILY [facility] Last Admin: 11/30/18 08:52 Dose: 300 mg Calcium Carbonate/Glycine (Tums) 1,000 mg PO Q2H PRN PRN Reason: Indigestion Last Admin: 11/30/18 08:58 Dose: 1,000 mg Cholecalciferol (Vitamin D3) 1,000 units PO DAILY [facility] Last Admin: 11/30/18 08:52 Dose: 1,000 units Cyanocobalamin (Vitamin B12) 1,000 mcg PO DAILY [facility] Last Admin: 11/30/18 08:52 Dose: 1,000 mcg Ferrous Sulfate (Ferrous Sulfate) 325 mg PO DAILY@0800 [facility] Last Admin: 11/30/18 07:50 Dose: 325 mg Doxycycline Hyclate 100 mg/ (Sodium Chloride) 100 mls @ 100 mls/hr IV Q12H [facility] Last Admin: 11/29/18 23:29 Dose: 100 mls/hr Ibuprofen (Motrin) 600 mg PO Q6H PRN PRN Reason: Fever Last Admin: 11/30/18 01:00 Dose: 600 mg Inulin (Fiber Choice) 4.5 gm PO BID [facility] Last Admin: 11/30/18 08:52 Dose: 4.5 gm Lactobacillus Rhamnosus (Culturelle) 2 cap PO DAILY [facility] Last Admin: 11/30/18 08:50 Dose: 2 cap [place] Carbonate (Eskalith Cr) 900 mg PO BEDTIME [facility] Last Admin: 11/29/18 20:36 Dose: 900 mg Mirtazapine (Remeron) 7.5 mg PO BEDTIME [facility] Last Admin: 11/29/18 20:36 Dose: 7.5 mg Ondansetron HCl (Zofran Odt) 4 mg PO Q6H PRN PRN Reason: Nausea able to take PO Last Admin: 11/26/18 09:52 Dose: 4 mg Pantoprazole Sodium (Protonix) 40 mg PO BEDTIME [facility] Last Admin: 11/29/18 20:36 Dose: 40 mg Polyethylene Glycol (Miralax) 17 gm PO DAILY [facility] Last Admin: 11/30/18 08:53 Dose: 17 gm Ropinirole HCl (Requip) 0.5 mg PO TID [facility] Last Admin: 11/30/18 08:51 Dose: 0.5 mg Sertraline HCl (Zoloft) 50 mg PO BEDTIME [facility] Last Admin: 11/29/18 20:36 Dose: 50 mg Sodium Chloride (Saline Flush) 10 ml FLUSH ASDIRECTED PRN PRN Reason: Keep Vein Open Last Admin: 11/22/18 09:46 Dose: 10 ml Discontinued Medications Bupropion HCl (Wellbutrin Xl) 300 mg PO DAILY [facility] Last Admin: 11/23/18 08:09 Dose: 300 mg Gentamicin Sulfate (Gentamicin) 1 mg IV .Pharmacy to Dose [facility] Stop: 11/24/18 14:00 Lactated Ringer's (Ringers, Lactated) 500 mls @ 999 mls/hr IV .BOLUS [facility] Last Admin: 11/22/18 09:45 Dose: 999 mls/hr Lactated Ringer's (Ringers, Lactated) 1,000 mls @ 125 mls/hr IV ASDIRECTED [facility] Last Admin: 11/22/18 10:21 Dose: 125 mls/hr Lactated Ringer's (Ringers, Lactated) 1,000 mls @ 125 mls/hr IV ASDIRECTED [facility] Last Admin: 11/22/18 23:42 Dose: 125 mls/hr Ciprofloxacin/Dextrose 400 mg/ (Premix) 200 mls @ 200 mls/hr IV Q12H [facility] Last Admin: 11/27/18 05:42 Dose: 200 mls/hr Sodium Chloride (Normal Saline) 1,000 mls @ 75 mls/hr IV ASDIRECTED [facility] Sodium Chloride (Normal Saline) 1,000 mls @ 125 mls/hr IV ASDIRECTED [facility] Gentamicin Sulfate 340 mg/ (Sodium Chloride) 108.5 mls @ 200 mls/hr IV ONETIME ONE Stop: 11/24/18 14:32 Last Admin: 11/24/18 13:56 Dose: 200 mls/hr Sodium Chloride (Normal Saline) 1,000 mls @ 125 mls/hr IV ASDIRECTED [facility] Last Admin: 11/25/18 09:54 Dose: 125 mls/hr Gentamicin Sulfate 400 mg/ (Sodium Chloride) 110 mls @ 202.765 mls/hr IV Q24H [facility] Last Admin: 11/26/18 13:28 Dose: 202.765 mls/hr Sodium Chloride (Normal Saline) 1,000 mls @ 75 mls/hr IV ASDIRECTED [facility] Last Admin: 11/28/18 00:26 Dose: 75 mls/hr Sodium Chloride (Normal Saline) 71 mls @ 3 mls/sec IV ONETIME ONE Stop: 11/26/18 13:42 Last Admin: 11/26/18 14:26 Dose: 3 mls/sec Sodium Chloride (Normal Saline) 1,000 mls @ 500 mls/hr IV ASDIRECTED [facility] Last Admin: 11/27/18 09:05 Dose: 500 mls/hr Iopamidol (Isovue-300 (61%)) 100 ml IV . DIRECTED PRN PRN Reason: RADIOLOGY EXAM Stop: 11/26/18 16:00 Last Admin: 11/26/18 14:26 Dose: 100 ml [place] Carbonate (Eskalith Cr) 900 mg PO BEDTIME [facility] Last Admin: 11/23/18 21:58 Dose: 900 mg Bupropion 300 Mg Tab (.ErPom) 0 each PO DAILY [facility] Last Admin: 11/24/18 09:44 Dose: 1 each Sertraline 100 Mg (TabPom) 0 each PO DAILY [facility] Last Admin: 11/24/18 09:45 Dose: 1 each Pantoprazole Sodium (Protonix) 40 mg PO BEDTIME [facility] Last Admin: 11/23/18 21:59 Dose: 40 mg Mirtazapine 7.5 Mg (Tab *Pt Own Med*) 7.5 each PO BEDTIME [facility] Last Admin: 11/22/18 20:00 Dose: 7.5 each Mirtazapine 7.5 Mg (Tab Pom) 0 each PO BEDTIME [facility] Last Admin: 11/23/18 21:58 Dose: 1 each Potassium Chloride (Klor-Con M20) 40 meq PO ONETIME ONE Stop: 11/27/18 08:46 Last Admin: 11/27/18 08:41 Dose: 40 meq Potassium Chloride (Klor-Con M20) 40 meq PO ONETIME ONE Stop: 11/27/18 17:01 Last Admin: 11/27/18 17:18 Dose: Not Given Ropinirole HCl (Requip) 1 mg PO TID [facility] Last Admin: 11/24/18 14:19 Dose: 1 mg Ropinirole HCl (Requip) 1 mg PO TID [facility] Last Admin: 11/26/18 09:37 Dose: 1 mg Ropinirole HCl (Requip) 0.5 mg PO BID [facility] Last Admin: 11/28/18 08:18 Dose: 0.5 mg Sertraline HCl (Zoloft) 50 mg PO DAILY [facility] Last Admin: 11/23/18 08:10 Dose: Not Given Sertraline HCl (Zoloft) 50 mg PO DAILY [facility] Last Admin: 11/25/18 09:20 Dose: Not Given Sertraline HCl (Zoloft) 100 mg PO DAILY [facility] Sodium Chloride (Saline Flush) 10 ml FLUSH ONETIME PRN PRN Reason: PER RADIOLOGY PROTOCOL Stop: 11/26/18 16:00 Last Admin: 11/26/18 14:26 Dose: 10 ml Tamsulosin HCl (Flomax) 0.4 mg PO BEDTIME [facility] Last Admin: 11/28/18 20:00 Dose: 0.4 mg Trimethoprim/Sulfamethoxazole (Septra Ds) 1 tab PO BID [facility] Last Admin: 11/23/18 08:09 Dose: 1 tab - Exam Quality Assessment: Denies: Supplemental Oxygen General: Reports: Alert, Oriented, Cooperative, No Acute Distress Lungs: Reports: Normal Respiratory Effort GI/Abdominal Exam: Soft, No Distention Extremities: No Pedal Edema Psy/Mental Status: Reports: Alert, Normal Affect
[2018-11-30] MEDS ORDERED: Doxycycline 100 MG Cap PO ONE (11:00)
[2018-11-30 11:08] LABS: LYME IGG/IGM AB <0.91 ISR (0.00-0.90)
[2018-11-30 11:19] VITALS: BP 99/55
[2018-11-30 14:07] LABS: HGE IGG TITER Negative (Neg:<1:64); HGE IGM TITER Negative (Neg:<1:20)
== END 2018-11-30 12:05 | disposition home or self-care (01) | DRG 868 ==
LOC: JP.ED 08:03 → JP.MS 14:51 → OBSVTOIN 11-24 13:23
PROVIDERS: ADMIT Internal Medicine; ATTEND Internal Medicine
DX: R53.1 Weakness (principal); A77.49 Other ehrlichiosis; N41.0 Acute prostatitis; F31.81 Bipolar II disorder; R32 Unspecified urinary incontinence; R50.9 Fever, unspecified; G25.81 Restless legs syndrome; D72.819 Decreased white blood cell count, unspecified; D69.6 Thrombocytopenia, unspecified; Z79.2 Long term (current) use of antibiotics; M54.9 Dorsalgia, unspecified; G89.29 Other chronic pain; M54.2 Cervicalgia; K21.9 Gastro-esophageal reflux disease without esophagitis; H54.7 Unspecified visual loss; H91.90 Unspecified hearing loss, unspecified ear; S00.412A Abrasion of left ear, initial encounter; X58.XXXA Exposure to other specified factors, initial encounter; Y92.009 Unspecified place in unspecified non-institutional (private) residence as the place of occurrence of the external cause
CPT/HCPCS: 36415 ×3; 51798; 71046; 80048 ×2; 80053; 80178; 81001; 82607; 82746; 83550; 83605; 83735; 84443; 85025 ×2; 85027; 86140; 87040 ×2; 87086; 96360; 96361; 97110; 97162; 97530; 97535; 99284; 99285; A9270 ×32; J0744 ×2; J7120 ×3; 74177; 80076; 80170; 82306; 83036; 86618; 86666; 97116-GP; 97140-GP; J1580; J3490; J7030; Q9967

== ENCOUNTER 2018-12-18 15:58 | Emergency (ER) | payer MEDICARE, BC ==
[2018-12-18 16:44] VITALS: BP 109/78
[2018-12-18] MEDS ORDERED: Sodium Chloride 0.9% 1,000 ML IV SCH (17:15)
--- NOTE | 2018-12-18 17:22 | EDM.PDOC ---
ED HPI GENERAL MEDICAL PROBLEM - General Chief Complaint: General Stated Complaint: SENT BY [employer] Time Seen by Provider: 12/18/18 17:17 Source of Information: Reports: Patient, Family History Limitations: Reports: No Limitations, Other (Hard of Hearing ) - History of Present Illness INITIAL COMMENTS - FREE TEXT/NARRATIVE: Alert pleasant 68-year-old gentleman presents to ED due to continuing generalized malaise, weakness and decreased appetite. Patient was dropped off by his due to concerns regarding weakness and likely dehydration. Hospitalized last month for possible infection secondary to prostatitis, during hospital course patient was found to have tick borne illness specifically anaplasmosis and treated with doxycycline. His last dose will be completed tomorrow. Patient's primary care provider ordered laboratory studies today was found to have slight worsening of renal function with a bump in his creatinine and decreased GFR therefore IV fluids is recommended. I reviewed patient's laboratory studies during recent hospitalization his discharge hemoglobin was 10 and hemoglobin and clinic was 8.6. Patient states he does have some source of breath with activity which is new and concerning to him. He denies any chest pain or palpitations. Patient's been taking his medications as directed. Patient states he has had decreased appetite over the course of the last 2-3 weeks. Appetite was slightly improved over the last 2 days. Patient takes MiraLAX chronically for constipation concerns. Patient has not the habit of evaluating his bowel movements. Patient did have a Audelia fundal medication for chronic reflux with some complications over the course of the last year. Endoscopy not recommended due to recent surgery. Patient denies any urinary symptoms pain or burning or difficulty with urinary flow. Patient denies any rashes or sores or skin. He states his migraine seems a little fussy with this illness and cannot process things as well as he would like. He states is not as active due to this generalized weakness and malaise which has been progressively getting worse over the course of the last month. Patient states the symptoms are worse today after recent hospital stay Onset: Gradual Duration: Getting Worse Improves with: Reports: Rest Worsens with: Reports: Breathing (shortness of breathing noted with activity ), Movement Associated Symptoms: Reports: Loss of Appetite (General Malaise over the last 3 weeks. Not improved since recent hospitlization or with antibiotic for treatment of tick borne panel), Shortness of Breath, Weakness - Related Data Allergies Allergy/AdvReac Type Severity Reaction Status Date / Time No Known Allergies Allergy Verified 11/22/18 08:15 Home Meds: Home Meds Ondansetron [Zofran] 4 mg PO Q8H PRN 07/02/13 [History] [place] Carbonate [Eskalith CR] 900 mg PO BEDTIME 04/10/18 [History] Sildenafil Citrate [Sildenafil] 100 mg PO DAILY PRN 04/14/18 [History] Polyethylene Glycol 3350 [MiraLAX] 17 gm PO DAILY 04/23/18 [History] Inulin [Fiber Choice] 4.5 gm PO BID tab.chew 04/27/18 [Rx] Cholecalciferol (Vitamin D3) [Vitamin D3] 1 cap PO DAILY 11/22/18 [History] Cyanocobalamin (Vitamin B-12) [Vitamin B-12] 1 tab PO DAILY 11/22/18 [History] Ferrous Sulfate 325 mg PO DAILY 11/22/18 [History] Lactobacillus Rhamnosus GG [Culturelle] 2 cap PO DAILY 11/22/18 [History] Mirtazapine 7.5 mg PO BEDTIME 11/22/18 [History] Pantoprazole Sodium [Protonix] 40 mg PO BEDTIME 11/22/18 [History] Sertraline HCl 50 mg PO DAILY 11/22/18 [History] buPROPion [buPROPion XL] 300 mg PO DAILY 11/22/18 [History] rOPINIRole [Requip] 0.5 mg PO TID 11/22/18 [History] Doxycycline Hyclate 100 mg PO BID #35 capsule 11/30/18 [Rx] Past Medical History HEENT History: Reports: Hard of Hearing, Impaired Vision, Other (See Below) Other HEENT History: B hearing aids Gastrointestinal History: Reports: Cholelithiasis, GERD, Hiatal Hernia, Other ( See Below) Other Gastrointestinal History: Uses low wedge under mattress to aid GERD Genitourinary History: Reports: Prostate Disorder, Other (See Below) Other Genitourinary History: Acute prostatitis (11/22/2018) Musculoskeletal History: Reports: Back Pain, Chronic, Neck Pain, Chronic Neurological History: Reports: Migraines, Neuropathy, Peripheral, Parkinson's, Other (See Below) Other Neuro History: Parkinson's Disease dx [facility] (2016) follows with Neurology along with RLS and cognition memory Psychiatric History: Reports: Anxiety, Bipolar, Depression Hematologic History: Reports: Other (See Below) Other Hematologic History: Anaplasmosis Dermatologic History: Reports: None - Infectious Disease History Infectious Disease History: Reports: Chicken Pox - Past Surgical History GI Surgical History: Reports: Cholecystectomy, Colonoscopy, EGD, Audelia Fundoplication, Other (See Below) Other GI Surgeries/Procedures: Audelia 04/2018 Musculoskeletal Surgical History: Reports: Arthroscopic Knee, Other (See Below) Other Musculoskeletal Surgeries/Procedures:: ACL surgery potentially bilaterally , cartilage surgery in lower legs bilateral, infection L knee from fall with laceration: ab [facility] 04/23/2018 while inpatient for Audelia. Social & Family History - Family History Family Medical History: Noncontributory - Tobacco Use Smoking Status *Q: Never Smoker - Caffeine Use Caffeine Use: Reports: Coffee Caffeine Use Comment: rare - Recreational Drug Use Recreational Drug Use: No ED ROS GENERAL - Review of Systems Review Of Systems: See Below (Hard of Hearing, Remainer of symptoms reviewed and negative) Constitutional: Reports: Malaise, Weakness, Weight Loss ( 160 to 145 pounds in less than 1 year (not intentional) ) HEENT: Reports: Other (Dry mouth ) Respiratory: Reports: Shortness of Breath Cardiovascular: Reports: Dyspnea on Exertion Endocrine: Reports: Fatigue GI/Abdominal: Reports: Anorexia, Constipation : Reports: No Symptoms Musculoskeletal: Reports: No Symptoms Skin: Reports: No Symptoms Neurological: Reports: Weakness Psychiatric: Reports: No Symptoms Hematologic/Lymphatic: Reports: Anemia Immunologic: Reports: No Symptoms ED EXAM, NEURO - Physical Exam Exam: See Below Exam Limited By: Other (Hard of Hearing) Ears: Normal External Exam, Normal Canal, Hearing Grossly Normal, Normal TMs Nose: Normal Inspection, Normal Mucosa, No Blood Throat/Mouth: Normal Inspection, Normal Lips, Normal Teeth, Normal Gums, Normal Oropharynx, Normal Voice, No Airway Compromise, Other (dry mouth ) Head Exam: Normocephalic Neck: Normal Inspection, Supple, Non-Tender, Full Range of Motion Respiratory/Chest: No Respiratory Distress, Lungs Clear, Normal Breath Sounds, No Accessory Muscle Use, Chest Non-Tender Cardiovascular: Regular Rate, Rhythm GI/Abdominal: Soft, Non-Tender, Guarding (Male) Exam: Deferred Neurological: Alert, Normal Mood/Affect, CN II-XII Intact, Oriented x 3 Back Exam: Normal Inspection, Full Range of Motion. No: CVA Tenderness (R), CVA Tenderness (L) Extremities: Normal Inspection, Normal Range of Motion, Non-Tender, No Pedal Edema, Normal Capillary Refill Psychiatric: Normal Affect, Normal Mood Skin Exam: Warm, Dry, Intact, Normal Color, No Rash EKG INTERPRETATION EKG Date: 12/11/18 Time: 17:52 Rhythm: NSR Rate (Beats/Min): 67 [place]: Normal P-Wave: Present QRS: Normal ST-T: Normal QT: Prolonged (QTc 483) OR/PQ Interval: prolonged 213 Course - Vital Signs Last Recorded V/S: Last Vital Signs Temp 36.0 C 12/18/18 16:41 Pulse 78 12/18/18 16:41 Resp 16 12/18/18 16:41 BP 109/78 12/18/18 16:41 Pulse Ox 96 12/18/18 16:41 - Orders/Labs/Meds Orders: Active Orders 24 hr Category Date Time Status Ambulate [RC] ASDIRECTED Care 12/18/18 18:42 Active EKG Documentation Completion [RC] ASDIRECTED Care 12/18/18 17:27 Active LITHIUM (ESKALITH(R)), SERUM Routine Lab 12/18/18 17:00 Received Sodium Chloride 0.9% [Normal Saline] 1,000 ml Med 12/18/18 17:15 Active IV ASDIRECTED EKG 12 Lead [EK] Urgent Ther 12/18/18 17:27 Ordered Medication Orders Sodium Chloride (Normal Saline) 1,000 mls @ 500 mls/hr IV ASDIRECTED ELSA Last Admin: 12/18/18 17:21 Dose: 500 mls/hr Labs: Laboratory Tests 12/18/18 12/18/18 12/18/18 Range/Units 17:13 17:13 17:13 WBC 3.0 L (4.5-11.0) K/uL RBC 2.32 L (4.30-5.90) M/uL Hgb 7.9 L (12.0-15.0) g/dL Hct 23.8 L (40.0-54.0) % MCV 103 H (80-98) fL MCH 34 H (27-31) pg MCHC 33 (32-36) % Plt Count 476 H (150-400) K/uL Neut % (Auto) 38 (36-66) % Lymph % (Auto) 52 H (24-44) % [place] % (Auto) 8 H (2-6) % Eos % (Auto) 2 (2-4) % Baso % (Auto) 0 (0-1) % Sodium 139 L (140-148) mmol/L Potassium 4.3 (3.6-5.2) mmol/L Chloride 104 (100-108) mmol/L Carbon Dioxide 28 (21-32) mmol/L Anion Gap 11.3 (5.0-14.0) mmol/L BUN 23 H (7-18) mg/dL Creatinine 1.4 H (0.8-1.3) mg/dL Est Cr Clr Drug Dosing 50.14 mL/min Estimated GFR (MDRD) 50 L (>60) Glucose 76 (74-106) mg/dL Calcium 9.3 (8.5-10.1) mg/dL Total Bilirubin 0.3 (0.2-1.0) mg/dL AST 23 (15-37) U/L ALT 22 (12-78) U/L Alkaline Phosphatase 84 (46-116) U/L Troponin I < 0.017 (0.000-0.056) ng/mL NT-Pro-B Natriuret Pep 294 H (5-125) pg/mL Total Protein 6.8 (6.4-8.2) g/dL Albumin 3.3 L (3.4-5.0) g/dL Globulin 3.5 (2.3-3.5) g/dL Albumin/Globulin Ratio 0.9 L (1.2-2.2) Lipase 94 (73-393) U/L Urine Color Urine Appearance Urine pH (4.5-8.0) Ur Specific Keyser (1.008-1.030) Urine Protein (NEGATIVE) mg/dL Urine Glucose (UA) (NEGATIVE) mg/dL Urine Ketones (NEGATIVE) mg/dL Urine Occult Blood (NEGATIVE) Urine Nitrite (NEGAITVE) Urine Bilirubin (NEGATIVE) Urine Urobilinogen (NORMAL) mg/dL Ur Leukocyte Esterase (NEGATIVE) Urine RBC (0-5) Urine WBC (0-5) Ur Epithelial Cells Amorphous Sediment Urine Bacteria Urine Mucus Monoscreen (NEGATIVE) 12/18/18 12/18/18 Range/Units 17:13 17:25 WBC (4.5-11.0) K/uL RBC (4.30-5.90) M/uL Hgb (12.0-15.0) g/dL Hct (40.0-54.0) % MCV (80-98) fL MCH (27-31) pg MCHC (32-36) % Plt Count (150-400) K/uL Neut % (Auto) (36-66) % Lymph % (Auto) (24-44) % [place] % (Auto) (2-6) % Eos % (Auto) (2-4) % Baso % (Auto) (0-1) % Sodium (140-148) mmol/L Potassium (3.6-5.2) mmol/L Chloride (100-108) mmol/L Carbon Dioxide (21-32) mmol/L Anion Gap (5.0-14.0) mmol/L BUN (7-18) mg/dL Creatinine (0.8-1.3) mg/dL Est Cr Clr Drug Dosing mL/min Estimated GFR (MDRD) (>60) Glucose (74-106) mg/dL Calcium (8.5-10.1) mg/dL Total Bilirubin (0.2-1.0) mg/dL AST (15-37) U/L ALT (12-78) U/L Alkaline Phosphatase (46-116) U/L Troponin I (0.000-0.056) ng/mL NT-Pro-B Natriuret Pep (5-125) pg/mL Total Protein (6.4-8.2) g/dL Albumin (3.4-5.0) g/dL Globulin (2.3-3.5) g/dL Albumin/Globulin Ratio (1.2-2.2) Lipase (73-393) U/L Urine Color Yellow Urine Appearance Clear Urine pH 7.0 (4.5-8.0) Ur Specific Keys[place] 1.010 (1.008-1.030) Urine Protein Negative (NEGATIVE) mg/dL Urine Glucose (UA) Normal (NEGATIVE) mg/dL Urine Ketones Negative (NEGATIVE) mg/dL Urine Occult Blood Negative (NEGATIVE) Urine Nitrite Negative (NEGAITVE) Urine Bilirubin Negative (NEGATIVE) Urine Urobilinogen Normal (NORMAL) mg/dL Ur Leukocyte Esterase Negative (NEGATIVE) Urine RBC Not seen (0-5) Urine WBC Not seen (0-5) Ur Epithelial Cells Few Amorphous Sediment Few Urine Bacteria Few Urine Mucus Not seen Monoscreen Negative (NEGATIVE) Meds: Medications Generic Name Dose Route Start Last Admin Trade Name Ten PRN Reason Stop Dose Admin Sodium Chloride 1,000 mls @ 500 mls/hr 12/18/18 17:15 12/18/18 17:21 Normal Saline IV 500 mls/hr ASDIRECTED ELSA Administration - Radiology Interpretation Free Text/Narrative:: CHART REVIEWED: CT ABD/PELVIS with IV contrast completed November 2018: No acute intraabdominal concerns noted. No AAA or masses. ABD SERIES with Chest: Normal bowel gas pattern. No signs of SBO. No acute infiltrate or density. No cardiomegaly noted. Compared to previous without acute changes noted. - Re-Assessments/Exams Free Text/Narrative Re-Assessment/Exam: Discussed laboratory studies and imaging results with patient and family. Patient is given a liter of fluids he's ambulated does fairly well he does have an unsteady Arben has not been sexually new worse or different. Patient's laboratory studies reveal continued low white count, hemoglobin 7.9 which is trending downward from hemoglobin of 10 on day of recent hospital discharge. Remainder of electrolytes appear to be normal potassium slightly low at 3.0, magnesium can be considered I'm concerned regarding possible lithium level therefore testis drawn and sent out. I'm concerned the patient may have some blood loss from unknown source. The endoscopy is not recommended due to recent fundoplication complications for possible endoscopy. Patient's does have some slight abdominal regarding CT scan was reviewed which was negative. X-ray today revealed no acute concerning changes no signs of constipation or bowel. Recommend discharge at this point in time with family. Close follow-up with primary care provider early next week to discuss continued symptoms or additional concerns possible referral to hematology for further evaluation of continued low white count elevated platelets along with normal environment B and iron/irritant levels per primary care provider in family. Patient has continued generalized malaise of unclear origin along with worsening weakness and unsteady gait. Patient has an increased risk of falls but is comfortable being discharged home. Family is comfortable with taking him home at this point in time. 12/18/18 19:12 Departure - Departure Time of Disposition: 19:25 Disposition: DC/Tfer to Inpt Rehab Fac 62 Condition: Fair Clinical Impression: Renal insufficiency, Generalized weakness - Discharge Information Instructions: Food Basics for Chronic Kidney Disease, Fatigue, Ataxia, Electrolytes Test, Chronic Kidney Disease, Adult, Weakness Referrals: Bobby Archuleta MD [Primary Care Provider] - Forms: ED Department Discharge Additional Instructions: Consider Hematology and or Nephrology consultation for further evaluation of weakness and worsening renal function. [place] level and Mag level are pending at time of discharge. - Problem List & Annotations (1) Renal insufficiency SNOMED Code(s): 678034099, 104135958 Code(s): N28.9 - DISORDER OF KIDNEY AND URETER, UNSPECIFIED Status: Acute Current Visit: Yes (2) Generalized weakness SNOMED Code(s): 05618511 Code(s): R53.1 - WEAKNESS Status: Acute Current Visit: No (3) GERD (gastroesophageal reflux disease) SNOMED Code(s): 746374214 Code(s): K21.9 - GASTRO-ESOPHAGEAL REFLUX DISEASE WITHOUT ESOPHAGITIS Status: Chronic Current Visit: No (4) Mild cognitive impairment SNOMED Code(s): 933300316 Code(s): G31.84 - MILD COGNITIVE IMPAIRMENT, SO STATED Status: Chronic Current Visit: No - Problem List Review Problem List Initiated/Reviewed/Updated: Yes - My Orders Last 24 Hours: My Active Orders 12/18/18 17:00 LITHIUM (ESKALITH(R)), SERUM Routine 12/18/18 17:15 Sodium Chloride 0.9% [Normal Saline] 1,000 ml IV ASDIRECTED 12/18/18 17:27 EKG Documentation Completion [RC] ASDIRECTED EKG 12 Lead [EK] Urgent 12/18/18 18:42 Ambulate [RC] ASDIRECTED - Assessment/Plan Last 24 Hours: My Active Orders 12/18/18 17:00 LITHIUM (ESKALITH(R)), SERUM Routine 12/18/18 17:15 Sodium Chloride 0.9% [Normal Saline] 1,000 ml IV ASDIRECTED 12/18/18 17:27 EKG Documentation Completion [RC] ASDIRECTED EKG 12 Lead [EK] Urgent 12/18/18 18:42 Ambulate [RC] ASDIRECTED
--- NOTE | 2018-12-18 18:15 | CRLCR ---
Indication: Abdominal Cardene with history of constipation. Technique: A PA view of the chest and AP supine and upright views of the abdomen and pelvis were obtained. Comparison: Chest x-ray dated November 22, 2018. Abdominal CT dated November 26, 2018. Findings: The heart is normal in size. The lungs are clear. No infiltrate, pleural effusion, or pneumothorax is identified. The bowel gas pattern is nonobstructive. Surgical clips are identified in the right upper quadrant. No free air is identified. Surgical clips are identified at the level the GE junction and in the right upper quadrant. Impression: Nonobstructive bowel gas pattern. No free air. No acute cardiopulmonary process. Dictated by Kelsi Rivera MD @ Dec 18 2018 6:11PM Signed by Dr. Kelsi Rivera @ Dec 18 2018 6:13PM
== END 2018-12-18 19:43 | disposition home or self-care (01) ==
LOC: JP.ED 15:58
DX: N28.9 Disorder of kidney and ureter, unspecified (principal); R53.1 Weakness; K21.9 Gastro-esophageal reflux disease without esophagitis; F41.9 Anxiety disorder, unspecified; F31.9 Bipolar disorder, unspecified; Z79.899 Other long term (current) drug therapy
CPT/HCPCS: 36415; 74022; 80053; 80178; 81001; 82272; 83690; 83735; 83880; 84484; 85025; 86308; 93005; 96360; 96361; 99285; J7030